=== PATIENT | female | born 1955 | race Caucasian/White ===

== ENCOUNTER → 2017-12-20 08:26 | Outpatient (CLI) | payer OTHER, SELFPAY ==
--- NOTE | 2017-12-20 08:27 | BI_ITS ---
MAMMOGRAPHY - BILATERAL SCREENING REASON FOR EXAM: Female, 62 years old. Routine annual screening examination. PERTINENT HISTORY: Mother with breast cancer. TECHNIQUE: Digital bilateral breast valarie (3D mammographic acquisition) in the CC and MLO projections. 2-D mediolateral oblique (MLO) and craniocaudad (CC) views of both breasts were obtained. CAD: Full Field Digital Mammography with Computer Added Detection was performed. COMPARISON: Comparison is made with prior study dated November 15, 2016 and August 20, 2014. FINDINGS: Breast Composition: There are scattered areas of fibroglandular density. There are no dominant masses or suspicious calcifications. No other significant abnormalities are identified. There has been no significant change since the prior study. BI/SCREENING MAMM (CAD), BILAT IMPRESSION: Stable bilateral screening mammogram. Yearly follow-up mammogram recommended. (A) ASSESSMENT CATEGORY: BIRADS Category 1: Negative. A letter regarding these results will be sent to the patient by the facility within 30 days. Approximately 10% of breast cancers are not detected by mammography. A normal mammogram should not delay biopsy of a clinically suspicious abnormality. [id number] Electronically Signed: Ruiz Bronson MD at 9:56 EDT Tel [phone], Service support ,
== END ==
PROVIDERS: Family Provider Family Medicine; PCP Family Medicine; Visit Provider Family Medicine
DX: Z12.31 Encounter for screening mammogram for malignant neoplasm of breast (principal); Z80.3 Family history of malignant neoplasm of breast
CPT/HCPCS: 77063; 77067

== ENCOUNTER → 2018-08-23 16:08 | Outpatient (CLI) | payer OTHER, SELFPAY ==
--- OUTSIDE RECORDS SUMMARY | 2018-10-09 13:46 | XMS RPT_ITS ---
:1955 Author Organization [facility] Care Team Providers Name Role Phone Irene Vergara Attending Unavailable Malys, Irene Primary Care Unavailable Malys, Irene Attending Unavailable Malys, Irene Primary Care Unavailable Carmelo Wan Attending Unavailable Malys, Irene Referring Unavailable Malys, Irene Primary Care Unavailable PROBLEMS PROBLEMS DATE TYPE CONDITION / CODE ATTENDING STATUS SOURCE 08/23/2018 Unknown R30.0 - Dysuria / MalIrene silveira Active [place] R30.0(ICD-10) [facility] Repository 05/11/2018 Unknown I35.0 - RoofCarmelo Active [place] [facility] aortic (valve) Hospital stenosis / Repository I35.0(ICD-10) 12/20/2017 Unknown Z12.31 - Encounter HimaraoulIrene Active [place] for screening [facility] mammogram for Hospital malignant neoplasm Repository of breast / Z12.31(ICD-10) PROCEDURES PROCEDURES No Procedure Records FoundRESULTS RESULTS Observed: 08/23/2018 Status: F Source: [place] CULTURE, URINE 4:09 PM [facility] Urine Culture ORGANISM 1: Mixed Gram Pos AND Gram Neg Org [place] Count 25,000-50,000 MIX CULTURE Mixed contaminants. Submit a new specimen if indicated. Performed By: #### [id number] #### [place] [facility] [place], [address] CARDIOLOGY VISIT Observed: 05/24/2018 Status: F Source: [place] REPORT 10:35 AM [facility] [place] [facility] [address] [place] [address] OFFICE VISIT Date of Service: 05/11/18 MR#: [id number] Acct: [id number] Name: EBONI IRWIN Rep #: [id number] : 1955 Provider: KARTHIK Wan Age/Sex: 62/F Location: [facility] Status: Signed HPI HPI Details: EBONI IRWIN, is a 62 F who presents to the office today for a cardiovascular outpatient follow-up. She has a history of aortic valve disease/bicuspid aortic valve status post aortic valve replacement with a bioprosthetic valve in December 2009, hypertension, and hyperlipidemia. Pt. denies chest, arm, jaw, or neck discomfort. Her exercise tolerance is stable via spinning twice a week and walk daily for one hour. Pt. denies symptoms of CHF, palpitations, lightheadedness, dizziness, near syncope, or syncopal episodes. Pt. denies edema or claudication issues. Pt. denies orthopnea, PND, or unexplainable fatigue. Intake Vital Signs05/11/18 Height 5 ft 4 in 05/11/18 Weight: 130 lb 05/11/18 Body Mass Index (BMI) 22.3 05/11/18 Blood Pressure 122/88 05/11/18 Blood Pressure Location Lt brachial Intake Visit Reasons: 1 Y FU Front Desk Associate Required: No Accompanied by: none Is patient in pain?: No Allergies lisinopril Adverse Reaction (Mild, Verified 05/11/18 10:16) Dry Cough Medications Aspirin [Aspirin, Baby] 81 mg PO DAILY@0800 02/18/16 [History Confirmed 05/11/18] losartan 50 mg tablet 50 mg PO DAILY #90 tab 12/25/17 [Rx Confirmed 05/11/18] amoxicillin 500 mg capsule 2 g PO DAILY PRN #4 cap 05/11/18 [Rx Confirmed 05/11/18] PFSH Surgical History H/O aortic valve replacement (Resolved) Family History Father Myocardial infarction Heart disease Brother Heart disease Social History Smoking Status: Never smoker alcohol intake: current alcohol intake frequency: holidays/special occasions only caffeine: Yes Type: coffee ROS Const Const: Negative for fatigue, weakness, body ache, fever(s) or chills ENT ENT: Negative for dizziness Cardio Chest Pain: No Palpitations: No Edema: None Muscle aches with walking: None Resp Respiratory: Negative for SOB with activity, SOB at rest, SOB orthopnea\SOB lying down or paroxysmal nocturnal dyspnea GI GI: Negative nausea, black,tarry stools, bright, red blood in stools or vomiting blood/hematemesis : Negative for hematuria or frequent nighttime urination/ nocturia Musc Musc: Negative for muscle aches/ myalgia Skin Skin: Negative non-healing lesions or rash Neuro Neuro: Negative for weakness, dizziness, lightheadedness, near syncope, syncope or orthostatic symptoms Endo Endo: Negative for fatigue Allergy Allergy/Immunology: Negative for rash Cardiology Exam Const Appearance: cooperative, healthy appearing, comfortable and no acute distress Nutritional Appearance: average body habitus and well nourished Orientation: alert, awake and oriented x3 Head Head: normal to inspection Ears: hearing grossly normal bilaterally Nose: external nose normal Face and Sinus: face symmetric Mouth: oral mucosae normal Eyes General: appearance normal, both eyes and all related structures Eyelids: eyelids normal EOM: EOM intact bilaterally Neck Neck: no JVD and normal visual inspection Carotids: normal carotid upstroke Chest Chest inspection: normal inspection of the chest and normal respiratory effort; negative cough Auscultation: Bilateral: Clear to Auscultation Cardio Rate: regular rate Rhythm: irregular rhythm Heart sounds: S1 normal, S2 normal and murmur; negative rub or gallop Murmur: Grade 2/6, RLSB, radiates to carotids and SILVINO loudest primary aortic area GI GI: normal to inspection Neuro General: alert, awake, oriented x3 and CN's II-XI intact bilaterally Skin Skin: no rashes or lesions noted Extremities Pulses: Normal: Right Posterior Tibial Pulse, Left Posterior Tibial Pulse, Right Radial Pulse, Left Radial Pulse Lower Extremity Edema: None: Bilateral Psych Psychological: normal affect Supplemental Info Echocardiogram from February 2016 showed normal LV size, estimated ejection fraction of 65%, bioprosthetic aortic valve, mild aortic stenosis with a calculated aortic valve area of 1.2 cm , peak gradient of 41 mmHg, and mean aortic valve gradient of 21 mmHg. Assessment AND Plan 1. Bicuspid aortic valve Q23.1 Plan - ASHLEY Gracia Echocardiogram from February 2016 showed ejection fraction 65%, mild aortic stenosis with a calculated aortic valve area 1.2 cm , peak aortic valve gradient of 41 mmHg, and mean aortic valve gradient of 21 mmHg. She will continue current medications and we will continue to monitor. On exam her radial pulse felt irregular. She underwent EKG that showed sinus rhythm with variable rates. 2. History of aortic valve replacement Z95.2 S/P bioprosthetic aortic valve replacement in December 2009; Plan - ASHLEY Garcia She will continue current treatment plan as outlined above. 3. Essential hypertension I10 Plan - ASHLEY Garcia Her systolic blood pressure has been well-controlled at home. Her diastolic blood pressure tends to fluctuate between 80s and 90s. At this time we will continue to monitor. She was instructed to contact our office if blood pressure is consistently elevated. If her diastolic remains elevated we can consider low-dose hydrochlorothiazide. Plan Detail Other Orders Orders: Other Medications New: Additional Comments - ASHLEY Garcia Discussed the above patient with Dr. Jackson, he agrees with the plan of care. Thank you for allowing us to participate in the patients plan of care, if you have any questions please do not hesitate to call. This note was generated using a voice recognition system and there may be incorrect words, spelling or punctuation that were not noted when reviewing the office note prior to saving. Follow Up 12 Months (SENIOR PROJECT LEADER/TEAM LEAD) Coding Level of Care Code Off vis,est,level 3 Diagnoses Bicuspid aortic valve Q23.1 History of aortic valve replacement Z95.2 Essential hypertension I10 Hypertension type: essential hypertension Coding Level of Care Code Off vis,est,level 3 Diagnoses Bicuspid aortic valve Q23.1 History of aortic valve replacement Z95.2 Essential hypertension I10 Hypertension type: essential hypertension 05/11/18 1202 <Electronically signed by Carmelo RAMIREZ> Date Carmelo RAMIREZ 05/24/18 1035<Electronically signed by Bryon Jackson MD> Cosigner Signature: Date (if applicable) Bryon Jackson MD CC: Irene Vergara DO 12 LEAD EKG PERFORMED Observed: 05/11/2018 Status: F Source: [place] BY BMS 10:31 AM [facility] [address] [place] [address] 12 Lead EKG performed by [facility] 05/11/180 MR#: [id number] Acct: [id number] Name: EBONI IRWIN Rep #: [id number] : 1955 62 From: Carmelo Wan LEGAL JOB TITLES-C Attending Dr: Carmelo Wan NP Status: DEP AMB Ordering Dr: Carmelo Wan LEGAL JOB TITLES-C Date: 05/11/18 Location: [facility] Sex: F C Admitted: BMS/12 Lead EKG performed by [facility] ECG Report Interpretation Sinus Rhythm -With rate variation cv = 14.WITHIN NORMAL LIMITSElectronically signed on 10/02/2018 at 16:22 by Bryon Jackson Software Version 8610 10/02/18 1625 Date Carmelo Wan LEGAL JOB TITLES-C CC: Irene Vergara DO Date Dictated: 05/11/181029 Date Transcribed: 05/11/181029 Gum Rolling Machine Tender: OLINDA Signed SCREENING MAMM (CAD), Observed: 12/20/2017 Status: F Source: [place] BILAT 8:27 AM [facility] Imaging Services [address] [place] [address] SCREENING MAMM (CAD), BILAT MR#: [id number] Acct: [id number] Name: EBONI IRWIN Rep #: [id number] : 1955 F 62 From: Ruiz Bronson MD PCP: Malys DO,Irene Status: REG CLI Study: SCREENING MAMM (CAD), BILAT Date of Exam: 12/20/17 Exam# [id number] Ordering Dr: Irene Vergara DO MAMMOGRAPHY - BILATERAL SCREENING REASON FOR EXAM: Female, 62 years old. Routine annual screening examination. PERTINENT HISTORY: Mother with breast cancer. TECHNIQUE: Digital bilateral breast valarie (3D mammographic acquisition) in the CC and MLO projections. 2-D mediolateral oblique (MLO) and craniocaudad (CC) views of both breasts were obtained. CAD: Full Field Digital Mammography with Computer Added Detection was performed. COMPARISON: Comparison is made with prior study dated November 15, 2016 and August 20, 2014. FINDINGS: Breast Composition: There are scattered areas of fibroglandular density. There are no dominant masses or suspicious calcifications. No other significant abnormalities are identified. There has been no significant change since the prior study. BI/SCREENING MAMM (CAD), BILAT IMPRESSION: Stable bilateral screening mammogram. Yearly follow-up mammogram recommended. (A) ASSESSMENT CATEGORY: BIRADS Category 1: Negative. A letter regarding these results will be sent to the patient by the facility within 30 days. Approximately 10% of breast cancers are not detected by mammography. A normal mammogram should not delay biopsy of a clinically suspicious abnormality. [id number] Electronically Signed: Ruiz Bronson MD at 9:56 EDT Tel [phone], Service support , CC: Irene Vergara DO Gum Rolling Machine Tender: Signed ALLERGIES ALLERGIES DATE TYPE / CODE NAME / CODE REACTION SEVERITY SOURCE 05/11/2018 Drug lisinopril/F0 DRY COUGH [facility] [place] [facility] All[facility]/4160 [id number]([facility] 30593(SNOMED ) Repository CT) 09/05/2017 Drug No Known Unknown [place] [facility] Allergy/4160 Allergies/F00 Hospital [address]290(SNOMED [id number](RXNOR Repository CT) M) ENCOUNTERS ENCOUNTERS ADMIT/DISCHARGE ACCOUNT ADMITTING ENCOUNTER LOCATION SOURCE NUMBER CLASS 08/23/2018 [id number] Ambulatory [place] 7 [facility] ing:BFHLAB Repository 05/11/2018/ [id number] Ambulatory BMSBuilding:B [place] 8 2 [facility] Repository 12/20/2017 [id number] Ambulatory [place] 2 [facility] ing:OPBI Repository PAYERS PAYERS ENCOUNTER GUARANTOR PAYER SUBSCRIBER SOURCE 08/23/2018 EBONI Ny Primary YUVAL [place] [id number] FRIAR Insurance:MEDICAL ROGERSDOB: [id number] [address]Zqy: Number: Repository [id number] (HP) Date:[id number] [place] [id number]: 08/23/2018 Secondary NOT GIVENUNK [place] Insurance:SELF PAY [facility] Number: Effective Repository Date:2018-08-23 05/11/2018 EBONI Yanely Primary YUVAL [place] [id number] FRIAR Insurance:MEDICAL ROGERSDOB: [facility] [id number] [place] [address]Aho: Number: Repository [id number] (HP) Date:[id number] [id number]: 05/11/2018 Secondary NOT GIVENUNK [place] Insurance:SELF PAY [facility] Number: Effective Repository Date:2018-05-11 12/20/2017 Eboni G Primary YUVAL [place] [id number] [place] Insurance:MEDICAL ROGERSDOB: [facility] [id number] [address]Jvr: Number: Repository [id number] (HP) Date:[id number] [address] [address]YK: 12/20/2017 Secondary NOT GIVENUNK [place] Insurance:SELF PAY [facility] Number: Effective Repository Date:2017-11-23
== END ==
PROVIDERS: Family Provider Family Medicine; PCP Family Medicine; Visit Provider Family Medicine
DX: R30.0 Dysuria (principal)
CPT/HCPCS: 87086; 87088

== ENCOUNTER → 2019-04-19 09:51 | Outpatient (CLI) | payer OTHER, SELFPAY ==
--- NOTE | 2019-04-19 10:01 | BI_ITS ---
MAMMOGRAPHY - BILATERAL SCREENING REASON FOR EXAM: Female, 63 years old. Routine annual screening examination. PERTINENT HISTORY: Mother with breast cancer. TECHNIQUE: Digital bilateral breast moni (3D mammographic acquisition) in the CC and MLO projections. 2-D mediolateral oblique (MLO) and craniocaudad (CC) views of both breasts were obtained. CAD: Full Field Digital Mammography with Computer Added Detection was performed. COMPARISON: Comparison is made with prior study dated December 20, 2017 and November 15, 2016. FINDINGS: Breast Composition: There are scattered areas of fibroglandular density. There are no dominant masses or suspicious calcifications. No other significant abnormalities are identified. There has been no significant change since the prior study. BI/SCREEN MAMM (CAD) W/MONI BILAT IMPRESSION: Stable bilateral screening mammogram. Yearly follow-up mammogram recommended. (A) ASSESSMENT CATEGORY: BIRADS Category 1: Negative. A letter regarding these results will be sent to the patient by the facility within 30 days. Approximately 10% of breast cancers are not detected by mammography. A normal mammogram should not delay biopsy of a clinically suspicious abnormality. [id number] Electronically Signed: Ruiz Bronson, at 10:48 EDT , Service support ,
== END ==
PROVIDERS: Family Provider Family Medicine; PCP Family Medicine; Referring Provider Family Medicine; Visit Provider Family Medicine
DX: Z12.31 Encounter for screening mammogram for malignant neoplasm of breast (principal)
CPT/HCPCS: 77063; 77067

== ENCOUNTER → 2019-05-08 12:36 | Outpatient (CLI) | payer OTHER, SELFPAY ==
[2019-05-02 09:37] VITALS: BMI 23.5
--- NOTE | 2019-05-08 12:38 | ECHOD_ITS ---
Reason For Study: Aortic valve replacment Procedure This was a 2D Doppler, Color Flow transthoracic echocardiogram. Exam performed in department. Left Ventricle Normal left ventricle. Left ventricular systolic function is normal. The estimated ejection fraction is 70 %. Stage 1 diastolic dysfunction. No regional wall motion abnormalities noted. Right Ventricle Normal RV size. Normal systolic function. Atria Normal left atrium. Normal right atrium. Mitral Valve Normal mitral valve. Tricuspid Valve Normal tricuspid valve. Mild tricuspid valve insufficiency. Pulmonary artery systolic pressure is 25 mmHg. Aortic Valve Peak aortic valve gradient 33 mmHg. Mean aortic valve gradient 19 mmHg. Calculated aortic valve area (continuity equation) is 1.4 cm2. Bioprosthetic aortic valve. Pulmonic Valve Normal pulmonic valve. Great Vessels Normal aortic root. The pulmonary artery is normal size. Normal inferior vena cava. Pericardium/Pleural No pericardial effusion. MMode/2D Measurements & Calculations LVIDd: 3.7 cm IVSd: 1.1 cm LVOT diam: 2.0 cm LVIDs: 2.0 cm LVPWd: 1.0 cm LVOT area: 3.0 cm2 RVDd: 2.8 cm FS: 46.5 % Ao root diam: 3.5 cm LAV(MOD-bp): 41.0 ml EDV(MOD-sp4): 72.3 ml LAV(MOD-bp) Indexed: 24.6 ml/m2 ESV(MOD-sp4): 18.4 ml LAV(MOD-sp2): 42.0 ml EF(MOD-sp4): 74.5 % LAV(MOD-sp4): 34.3 ml EDV(MOD-sp2): 62.7 ml SV(MOD-sp4): 53.8 ml SV(MOD-sp2): 47.6 ml EF(MOD-sp2): 75.9 % LA A4 area: 14.7 cm2 LA dimension(2D): 3.2 cm RA A4 area: 12.0 cm2 Doppler Measurements & Calculations MV E max mukesh: 76.7 cm/sec Lat Peak E' Mukesh: 12.2 cm/sec Med Peak E' Mukesh: 7.9 cm/sec MV A max mukesh: 93.4 cm/sec E/E' lat: 6.3 E/E' med: 9.7 MV E/A: 0.82 Ao V2 max: 290.1 cm/sec LV V1 max: 135.4 cm/sec SV(LVOT): 94.6 ml Ao max P.7 mmHg LV V1 max P.4 mmHg Ao V2 mean: 208.0 cm/sec LV V1 mean P.1 mmHg Ao mean P.0 mmHg LV V1 mean: 95.7 cm/sec Ao V2 VTI: 61.8 cm LV V1 VTI: 31.1 cm TRESSA(I,D): 1.5 cm2 TRESSA(V,D): 1.4 cm2 PA V2 max: 111.4 cm/sec TR max mukesh: 231.0 cm/sec TR max P.4 mmHg Interpretation Summary Normal left ventricle. Left ventricular systolic function is normal. The estimated ejection fraction is 70 %. Stage 1 diastolic dysfunction. Bioprosthetic aortic valve. Mean aortic valve gradient 19 mmHg. Calculated aortic valve area (continuity equation) is 1.4 cm2. Compared to prior study, there is no significant change. Ordering Physician: Bryon Jackson Referring Physician: Irene Vergara Performed By: Yadi Jalloh RDCS
== END ==
PROVIDERS: Family Provider Family Medicine; PCP Family Medicine; Referring Provider Internal Medicine Cardiovascular Disease; Visit Provider Internal Medicine Cardiovascular Disease
DX: Z95.2 Presence of prosthetic heart valve (principal)
CPT/HCPCS: 93306

== ENCOUNTER 2019-07-27 21:45 | Observation (INO) | payer OTHER, SELFPAY ==
[2019-05-02 09:37] VITALS: BMI 23.5
[2019-07-27 21:46] VITALS: BP 183/90; PULSE 90; RESP 17; TEMP 36.8; O2SAT 99; BMI 23.6
--- NOTE | 2019-07-27 21:56 | RAD_ITS ---
STUDY: X-RAY CHEST REASON FOR EXAM: Female, 63 years old. Chest pain. TECHNIQUE: Single frontal view of the chest. COMPARISON: February 18, 2016 FINDINGS: There is no new focal consolidation. Sternal cerclage wires are present from a prior sternotomy. There is a prosthetic valve in place. The cardiac silhouette is within normal limits. Normal mediastinum and alec. Normal visualized pulmonary arteries. Normal visualized aortic arch and descending thoracic aorta. Normal visualized thoracic spine. Normal visualized ribs, clavicles, and shoulders. There is no demonstrated abnormality of the visualized soft tissue structures of the upper abdomen. RAD/Chest 1 View (Portable) IMPRESSION: No acute cardiopulmonary process. Electronically Signed: Lexie Ulloa MD at 22:29 EST Tel , Service support ,
--- NOTE | 2019-07-27 21:56 | EKG12_ITS ---
Test Reason : CP Blood Pressure : / mmHG Vent. Rate : 089 BPM Atrial Rate : 089 BPM P-R Int : 170 ms QRS Dur : 090 ms QT Int : 370 ms P-R-T Axes : 051 039 047 degrees QTc Int : 450 ms Normal sinus rhythm with sinus arrhythmia ST & T wave abnormality, consider lateral ischemia Abnormal ECG Confirmed by TORSTEN CLARK, JADE ([id number]), pictures editor ANDIE BRYAN ([id number]) on 07/30/2019 11:35:39 AM Referred By: BB Confirmed By:JADE SARMIENTO MD
[2019-07-27 22:07] LABS: Absolute Lymphocyte Count 2.46 X10^3/uL (0.83-4.51); Absolute Neutrophil Count 4.3 X10^3/uL (2.0-7.7); Basophil# 0.03 X10^3/uL; Basophil% 0.4 % (0-1); Eosinophil# 0.11 X10^3/uL; Eosinophils% 1.5 % (0-5); Hematocrit 43.1 % (37-47); Hemoglobin 14.4 g/dL (12.0-15.0); Lymphocyte # 2.46 X10^3/ul (4.0); Lymphocyte % 32.8 % (19-41); Mean Corp Hgb Conc 33.4 g/dL (32-36); Mean Corpuscular Hgb 29.7 pg (27.0-32.0); Mean Corpuscular Volume 88.9 fL (81-99); Mean Platelet Vol. 9.5 fl (6.2-12.0); Monocyte# 0.62 X10^3/uL; Monocyte% 8.3 % (0-10); NRBC Flagged by Analyzer 0 % (0-5); Neutrophil # 4.26 X10^3/uL (2.7-7.7); Neutrophil % 56.9 % (47-70); POSITIVE MORPHOLOGY YES; Platelet Count 236 K/mm3 (150-450); RBC Distribution Width CV 12.1 % (11.6-14.6); RBC Distribution Width SD 39.8 fl (35.1-43.9); Red Blood Count 4.85 M/mm3 (4.2-5.4); White Blood Count 7.5 K/mm3 (4.4-11.0)
[2019-07-27 22:18] VITALS: O2SAT 99
[2019-07-27] MEDS: Aspirin 81 MG TAB.CHEW 324 MG PO (22:20)
[2019-07-27 22:22] LABS: Anion Gap 7 (5-15); BUN 18 mg/dL (7-18); BUN/Creat Ratio 18.1 RATIO (10-20); Calcium,Total 9.5 mg/dL (8.5-10.1); Chloride 109 mmol/L (98-107); EST Glomerular Filtration Rate 60 mL/min (>60); Est Glom Filt Rate - Afr Amer 72 mL/min (>60); Estimated Creatinine Clearance 50.37 ml/min; Glucose 102 mg/dL (74-106); Potassium 3.4 mmol/L (3.5-5.1); Sodium Level 141 mmol/L (136-145)
[2019-07-27 22:47] LABS: Differential Indicated SCAN CRITERIA MET
[2019-07-27 22:48] LABS: Platelet Estimate ADEQUATE (ADEQ); Red Cell Morphology NORM C+C NORMAL (NORM C&C)
--- NOTE | 2019-07-27 23:03 | ED.VISSUMM ---
- ER Visit Summary Date of Service: 07/27/19 Chief Complaint: Chest pain History of Present Illness: The patient is a 63 F with chest pain started about 25 minutes prior to arrival. The patient has been having this pain on and off for months. She attributed it to indigestion. Symptoms are worse when she exerts herself. Today it was worse when she was carrying a heavy object. She denies any other associated symptoms. She has a history of a bioprosthetic aortic valve replacement remotely as well as hypertension. She is a non-smoker. Denies any history of coronary disease, venous thromboembolism, or aortic disease. Physical Examination: Initial blood pressure was 83/90. Otherwise vitals normal. Afebrile. Alert and oriented. No acute distress. Heart regular rate and rhythm. Lungs clear. Skin normal. Extremities nontender with no edema. Pulses strong and equal. Test Results: EKG showed sinus rhythm at a rate of 89. She has nonspecific ST and T wave changes which would could be consistent with ischemia. They are different from her prior EKG and 2016. Troponin was normal. Labs otherwise unremarkable. X-ray normal. Emergency Department Course and Treatment: Patient treated with aspirin and placed on the monitor. EKG was abnormal as above but nonspecific. Her pain on arrival was 1 out of 10. On reevaluation, pain resolved. Blood pressure is 136/85. Patient has a heart score of 4. Hospitalist was contacted for admission. Treatment Plan: As above Disposition: PCU obs Impression: 1. Chest pain This note was generated with [employer] dictation software. It may contain incorrect words, spelling, and punctuation that were not noted in review of the chart prior to signing ED Disposition - Plan for ED Patient: Referrals: Irene Vergara DO [Primary Care Provider] -
--- NOTE | 2019-07-27 23:19 | HP.PCM_ITS ---
Problem List (1) Chest pain Status: Acute Qualifiers: Ischemic chest pain type: stable angina pectoris History of Present Illness Date of Admission: 07/27/19 Chief Complaint: chest pain The patient is a 63 year old F resents with chest pain. Over the past several months, patient has been having chest pain pressure with exertion, such as when she is working out, chest pain is midsternal goes to her back and then resolves after she belches. Patient had an event tonight and then was much more intense and so she sought evaluation. Work-up in the emergency room showed negative troponins but EKG showed some ST depressions in the lateral leads which were not present previously. Patient has never had chest pain like this before. She denies any other associated symptoms, such as diaphoresis, nausea, abdominal pain. [] Past Medical History Past Medical History (Chronic Problems): Chronic Problems (Last Reviewed 05/02/19 @ 10:37 by Bryon Jackson MD) Essential (primary) hypertension (Chronic) Atherosclerosis of coronary artery of [place] heart without angina pectoris (Chronic) Non-rheumatic aortic stenosis (Chronic) Medical History: Medical History (Last Reviewed 07/27/19 @ 23:21 by Krishna Cody DO) Essential (primary) hypertension (Chronic) I10 Atherosclerosis of coronary artery of [place] heart without angina pectoris (Chronic) I25.10 Non-rheumatic aortic stenosis (Chronic) I35.0 Bicuspid aortic valve Q23.1 Allergies lisinopril Adverse Reaction (Mild, Verified 07/27/19 21:48) Dry Cough Home Medications: Ambulatory Orders Medication Instructions Recorded Aspirin [Aspirin, Baby] 81 mg PO DAILY@0800 02/18/16 losartan 100 mg tablet 100 mg PO DAILY #90 tab 05/02/19 Omeprazole 20 mg PO DAILY 07/27/19 Surgical History: Surgical History (Last Reviewed 07/27/19 @ 23:21 by Krishna Cody DO) History of aortic valve replacement (Resolved) Onset Date: 12/2009 Z95.2 21 mm Omero Gilmore bioprosthetic aortic valve replacement in December 2009 History of Z98.891 History of left heart catheterization Onset Date: 11/20/09 Z98.890 Lung nodule R91.1 removal nodule RLL Smoking Status: Never smoker - *Family History Paternal Family History: Family History (Last Reviewed 07/27/19 @ 23:21 by Krishna Cody DO) Father Myocardial infarction Heart disease Brother Heart disease Review of Systems Constitutional: Denies: Anorexia, Chills, Fever Eyes: Denies: Blurred vision, Double vision HEENT: Denies: Head Aches, Sinus Congestion, Sinus Drainage Cardiovascular: Reports: Chest Pain. Denies: Edema Respiratory: Denies: Cough, Shortness of breath at rest, Sputum production Gastrointestinal: Reports: - - Belching with the chest pain. Denies: Abdominal Pain, Nausea, Vomiting Genitourinary: Denies: Dysuria Musculoskeletal: Denies: Joint Pain, Joint Tenderness Skin: Denies: Rash, Wounds Neurological: Denies: Numbness, Tingling, Focal weakness Psychiatric: Denies: Anxiety, Depression Hematologic/ Lymphatic: Denies: Easy Bruising, Easy Bleeding, Hx of blood clot Comment: All review systems are otherwise negative except for as mentioned above and in the HPI. VTE Information - Inpt Only VTE Present on Admission: No VTE Mechan Device Prophylaxis: None VTE Pharm Prophylaxis ordered?: No Patient Problems: Active and Suspected Problems (Last Reviewed 05/02/19 @ 10:37 by Bryon Jackson MD) Chest pain (Acute) - Physical Exam Vitals/I&O's: Vital Signs Temp Pulse Resp BP Pulse Ox 36.8 C 90 17 183/90 H 99 07/27/19 21:46 07/27/19 21:46 07/27/19 21:46 07/27/19 21:46 07/27/19 22:18 Oxygen Flow Rate (L/min) 2 Oxygen Delivery Method Nasal Cannula Weight: 62.5 kg Body Mass Index (BMI) 23.6 General: Alert, No apparent distress HEENT: Atraumatic, Normocephalic Oral: Moist Mucosa, No Gingival or Mucosal Lesions/ Ulcerations Neck: No Nodes, Trachea Midline Lungs: Clear to auscultation, Normal air movement, No rhonchi, No wheeze, No rales Cardiovascular: Regular rate, Regular Rhythm, - - Aortic valve click Abdomen: Bowel Sounds Present, Soft, Non Tender, Non-Distended Extremities: No edema, No Calf Tenderness Skin: No rashes, No breakdown Musculoskeletal: No Tenderness to Palpation of Joints or Extremities, No Muscle Wasting Neurological: Sensory exam intact to light touch and pain, - - no clonus Psych/Mental Status: Normal Affect, Appropriate Laboratory Results 07/27/19 21:50: WBC 7.5, RBC 4.85, Hgb 14.4, Hct 43.1, MCV 88.9, MCH 29.7, MCHC 33.4, RDW Std Deviation 39.8, RDW Coeff of José Miguel 12.1, Plt Count 236, MPV 9.5, Immature Gran % (Auto) 0.100, Neut % (Auto) 56.9, Lymph % (Auto) 32.8, Falls % (Auto) 8.3, Eos % (Auto) 1.5, Baso % (Auto) 0.4, Absolute Neuts (auto) 4.3, Absolute Lymphs (auto) 2.46, Nucleated RBC % 0, Platelet Estimate ADEQUATE, RBC Morphology NORM C+C 07/27/19 21:50: Sodium 141, Potassium 3.4 L, Chloride 109 H, Carbon Dioxide 25.0, Anion Gap 7, BUN 18, Creatinine 1.00, Estim Creat Clear Calc 50.37, Est GFR (MDRD) Af Amer 72, Est GFR (MDRD) Non-Af 60, BUN/Creatinine Ratio 18.1, Gl ucose 102, Calcium 9.5, Troponin I < 0.015 EKG reviewed and showed normal sinus rhythm with ST depressions in the lateral leads which were not present previously. Echocardiogram from May 08 of this year, showed ejection fraction of 70% Assessment/Plan All Active Problems (Last Reviewed 05/02/19 @ 10:37 by Bryon Jackson MD) Chest pain (Acute) History of aortic valve replacement (Resolved 12/2009) Screen for colon cancer (Resolved) 1. Chest pain * Symptoms concerning for stable angina * Shana score of 90 and CARLOS score of 3 * Patient already on aspirin and will continue * Cycle troponins * Informed patient that a stress test would not be able to be performed until the . Claimed the patient that this could be done as outpatient but it would require her seeing her primary care provider and getting a stress test ordered and when the stress test could be performed could be up to a week or 2. * Patient is choosing to stay in the hospital * Will order a treadmill stress echocardiogram * Consult cardiology if troponins become significantly elevated or if condition deteriorates from a cardiac standpoint 2. Hypertension * Accelerated currently * Continue with losartan and monitor 3. VTE prophylaxis: Low risk as patient is observation status and ambulatory. Code Visit OBSV E&M: 15783 Initial observation care L3
--- NOTE | 2019-07-27 23:44 | EKG12_ITS ---
Test Reason : CP ADMISSION Blood Pressure : / mmHG Vent. Rate : 064 BPM Atrial Rate : 064 BPM P-R Int : 202 ms QRS Dur : 086 ms QT Int : 400 ms P-R-T Axes : 025 040 030 degrees QTc Int : 412 ms Normal sinus rhythm with sinus arrhythmia Normal ECG When compared with ECG of 18-FEB-2016 14:25, No significant change was found Confirmed by PHYLLIS RICH ([id number]), editor trade journal SCOTT BURROWS ([id number]) on 08/06/2019 10:15:17 AM Referred By: GUILLE Confirmed By:PHYLLIS RICH
[2019-07-27 23:46] VITALS: BMI 23.3; BMI 23.4
[2019-07-27 23:50] VITALS: BP 165/88; PULSE 71; RESP 16; TEMP 36.8; O2SAT 95
[2019-07-28] VITALS (11 sets, daily range): BP systolic 140–166; BP diastolic 85–93; PULSE 54–76; RESP 16–18; TEMP 36.7–37.3; O2SAT 97–98
[2019-07-28] MEDS: MELATONIN 3 MG TABLET PO (00:26)
[2019-07-28 05:18] LABS: Cholesterol 214 mg/dL (200); High Density Lipoprotein 56 mg/dL; Triglycerides 76 mg/dL; Very Low Density Lipoprotein 15 mg/dL (5-40)
--- NOTE | 2019-07-28 05:55 | STE_ITS ---
Reason For Study: Chest Pain Stress Results Protocol: Jas Protocol Maximum Predicted HR: 158 bpm Target HR: 134 bpm % Maximum Predicted HR: 82 % DurationHeart Rate Stage (mm:ss) (bpm) BP Comment Baseline 71 134/72No Chest Pain Jas Protocol Stage I 3:00 111 118/74No Chest Pain Jas Protocol Stage II 3:00 120 126/72Mild Chest Tightness Jas Protocol Stage III 3:00 125 138/70Mild Chest Tightness Jas Protocol Stage IV 1:40 130 / Mild Chest Tightness Recovery 90 122/78No Chest Pain Stress Duration: 10:40 mm:ss Maximum Stress HR: 130 bpm METS: 13 Baseline Echocardiogram Findings Stress Echo Wall motion Data Resting WM Intermediate WM Stress WM Interpretation Summary Exercise stress echo. 63-year-old lady with a history of aortic valve replacement and chest pain. Stress protocol: Resting EKG demonstrates normal sinus rhythm with a rate of 73 bpm normal intervals are noted resting blood pressures 134/72 mmHg. The patient exercised according to regular Jas protocol for total duration of 10 minutes and 40 seconds. Patient completed 1 minute and 40 seconds to stage IV of the Jas protocol the maximum heart rate attained 131 bpm which was 82% of maximum predicted heart rate the maximum workload was 13.4 metabolic equivalents. Patient maintained sinus rhythm throughout the recording. At rest there were no ST or T wave changes noted suggest ischemia at peak exercise there was approximately 1.1 to 1.[address] depression noted in leads II, III and aVF and V5 and V6. Patient experienced mild chest tightness and stage II and stage III and IV of the protocol. During recovery chest pain dissipated. The resting blood pressure 134/72 with a peak blood pressure of 138/70 mmHg. It was terminated due to attainment of target heart rate Stress echocardiographic images. Resting echocardiogram demonstrated overall preserved left ventricular systolic function with no obvious wall motion abnormalities noted. During stress echocardiogram there was definite hypokinesis noted of the mid anterior septal wall, mid anterior wall, suggestive of stress-induced ischemia. The ejection fraction was 55% at rest and at peak was mildly increased at 58%. Conclusion: Exercise stress echo with evidence of anterior wall ischemia noted. Ordering Physician: Krishna Cody Referring Physician: Bryon Jackson Performed By: Lexy Mcmullen, RENEE, RVT
[2019-07-28] MEDS: Aspirin 81 MG TAB.CHEW PO (08:38)
[2019-07-28] MEDS: Pantoprazole Sodium 20 MG Tablet PO (08:38)
[2019-07-28] MEDS: Losartan Potassium 100 MG Tablet PO (08:38)
--- NOTE | 2019-07-28 10:47 | PCM.PN.HOSP ---
Patient Problems: Active and Suspected Problems (Last Reviewed 07/27/19 @ 23:21 by Krishna Cody DO) Chest pain (Acute) Subjective: Chest pain resolved, feeling much better. Vitals/I&O's: Vital Signs Temp Pulse Resp BP Pulse Ox 99.1 F 73 18 166/93 H 98 07/28/19 08:32 07/28/19 08:32 07/28/19 08:32 07/28/19 08:32 07/28/19 08:32 Oxygen Flow Rate (L/min) 2 Oxygen Delivery Method Room Air Weight: 136 lb 3.931 oz Body Mass Index (BMI) 23.3 Intake and Output for Last 24 Hours 07/26/19 07/27/19 07/28/19 23:59 23:59 23:59 Intake Total 480 / 480 Balance 480 / 480 General: Alert, Oriented x3, Cooperative, No apparent distress HEENT: Atraumatic, PERRLA, EOMI, Normocephalic Oral: Moist Mucosa Neck: Supple, No JVD Lungs: Clear to auscultation, Normal air movement, No rhonchi, No wheeze, No rales Cardiovascular: Regular rate, Regular Rhythm, Normal S1, Normal S2, Murmur - 2/6 SILVINO chronic Abdomen: Soft, Non Tender, Non-Distended, No Hepato-splenomegaly Extremities: No edema, Capillary Refill Less than 3 Seconds Skin: No rashes, No breakdown Neurological: Neuro grossly intact, Sensory exam intact to light touch and pain Psych/Mental Status: Normal Affect, Appropriate Laboratory Results 07/27/19 21:50: WBC 7.5, RBC 4.85, Hgb 14.4, Hct 43.1, MCV 88.9, MCH 29.7, MCHC 33.4, RDW Std Deviation 39.8, RDW Coeff of José [place] 12.1, Plt Count 236, MPV 9.5, Immature Gran % (Auto) 0.100, Neut % (Auto) 56.9, Lymph % (Auto) 32.8, [place] % (Auto) 8.3, Eos % (Auto) 1.5, Baso % (Auto) 0.4, Absolute Neuts (auto) 4.3, Absolute Lymphs (auto) 2.46, Nucleated RBC % 0, Platelet Estimate ADEQUATE, RBC Morphology NORM C+C 07/27/19 21:50: Sodium 141, Potassium 3.4 L, Chloride 109 H, Carbon Dioxide 25.0, Anion Gap 7, BUN 18, Creatinine 1.00, Estim Creat Clear Calc 50.37, Est GFR (MDRD) Af Amer 72, Est GFR (MDRD) Non-Af 60, BUN/Creatinine Ratio 18.1, Glucose 102, Calcium 9.5, Troponin I < 0.015 07/28/19 00:54: Troponin I < 0.015 07/28/19 03:52: Triglycerides 76, Cholesterol 214 H, LDL Cholesterol 143 H, VLDL Cholesterol 15, HDL Cholesterol 56 07/28/19 03:52: Troponin I < 0.015 Current Medications Acetaminophen (Tylenol) 650 mg PO Q6H PRN PRN PRN Reason: Pain Score 1-10/Temp > 100.7 F Aspirin (Aspirin, Baby) 81 mg PO DAILY@0800 [facility] Last Admin: 07/28/19 08:38 Dose: 81 mg Documented by: Dextrose (D50w Syringe) 0 gm IV X1 PRN; Protocol PRN Reason: Hypoglycemia Glucagon () 1 mg IM .X1 PRN PRN Reason: Hypoglycemia Sodium Chloride () 250 mls @ 15 mls/hr IV .[id number] PRN PRN Reason: Saline Flush Losartan Potassium (Cozaar) 100 mg PO DAILY [facility] Last Admin: 07/28/19 08:38 Dose: 100 mg Documented by: Melatonin (Melatonin) 3 mg PO QHS PRN PRN PRN Reason: INSOMNIA Last Admin: 07/28/19 00:26 Dose: 3 mg Documented by: Nitroglycerin (Nitrostat) 0.4 mg SUBLINGUAL Q5M PRN PRN Reason: CARDIAC/CHEST PAIN Ondansetron HCl (Zofran) 4 mg IV Q8H PRN PRN PRN Reason: NAUSEA/VOMITING Pantoprazole Sodium (Protonix) 20 mg PO DAILY [facility] Last Admin: 07/28/19 08:38 Dose: 20 mg Documented by: Sodium Chloride () 10 - 40 ml IV UD PRN PRN Reason: SALINE FLUSH STROKE Vital Signs/Narrative: Vital Signs Temp Pulse Resp BP Pulse Ox 07/28/19 08:32 99.1 F 73 18 166/93 H 98 07/28/19 08:00 66 Medical Necessity - Tobacco Use Smoking Status: Never smoker Assessment/Plan All Active Problems (Last Reviewed 07/27/19 @ 23:21 by Krishna Cody DO) Chest pain (Acute) History of aortic valve replacement (Resolved 12/2009) Screen for colon cancer (Resolved) 1. Chest pain/HTN -Troponins were negative -EKG was normal -Stress test in the morning -Continue with aspirin -Blood pressures been stable, will continue with losartan 2. GERD -Stable -Continue with PPI DVT: Ambulation Code Visit OBSV E&M: 79102 Subsequent observation care L2
[2019-07-28] MEDS: Atorvastatin Calcium 40 MG Tablet PO (22:07)
[2019-07-29] VITALS (24 sets, daily range): BP systolic 106–165; BP diastolic 54–105; PULSE 57–76; RESP 11–19; TEMP 36.6–36.9; O2SAT 96–99; BMI 23.2
[2019-07-29] MEDS: Losartan Potassium 100 MG Tablet PO (05:32)
[2019-07-29] MEDS: Aspirin 81 MG TAB.CHEW PO (05:32)
[2019-07-29] MEDS: 0.9% Saline Lock 10 ML Syringe IV ×2 (05:34→12:20)
--- NOTE | 2019-07-29 05:55 | EKG12_ITS ---
Test Reason : MORNING EKG Blood Pressure : / mmHG Vent. Rate : 068 BPM Atrial Rate : 068 BPM P-R Int : 172 ms QRS Dur : 096 ms QT Int : 390 ms P-R-T Axes : 057 033 038 degrees QTc Int : 414 ms Normal sinus rhythm with sinus arrhythmia Normal ECG When compared with ECG of 28-JUL-2019 00:19, MANUAL COMPARISON REQUIRED, DATA IS UNCONFIRMED Confirmed by PHYLLIS RICH ([id number]), associate entertainment editor SCOTT BURROWS ([id number]) on 08/06/2019 10:17:22 AM Referred By: JOHN Confirmed By:PHYLLIS RICH
[2019-07-29] MEDS: Pantoprazole Sodium 20 MG Tablet PO (09:37)
--- NOTE | 2019-07-29 10:57 | CASEMGMT ---
CASSIDY met with patient as she is listed as self pay. She said that they are not on many medications and have been doing fine paying for them. She sees Dr Vergara for her PCP. They are active with [facility] health coverage, but they have to pay up front. She said she is doing fine and does not need any resources. Salina SANTOS MSW
--- NOTE | 2019-07-29 11:16 | CON.PCM_ITS ---
Reason for Consult Date of Consultation: 07/29/19 Reason for Consultation: Chest discomfort and abnormal stress test History of Present Illness: The patient is a 63 year old F with a past medical history of hypertension, hyperlipidemia, history of bicuspid aortic valve status post Omero Gilmore bioprosthetic valve replacement in 2009. She had been doing quite well and following with us in the office until the last few months when she says that she is experienced chest discomfort when she exerts herself. There is no radiation there is no dizziness or diaphoresis. This weekend she experienced more episodes of this chest discomfort which appeared to be worse with exertion and dissipating with rest. She presented to the emergency room cardiac enzymes were obtained which were noted to be normal. She was scheduled for and underwent an exercise stress echo where she exercised to 13.4 metabolic equivalents with nonspecific ST changes and anterior hypokinesis and reproduction of the chest discomfort. Cardiology was called for further evaluation and management. [] Past Medical History Allergies/Adverse Reactions: Allergies lisinopril Adverse Reaction (Mild, Verified 07/27/19 21:48) Dry Cough Home Medications: Ambulatory Orders Medication Instructions Recorded Aspirin [Aspirin, Baby] 81 mg PO DAILY@0800 02/18/16 losartan 100 mg tablet 100 mg PO DAILY #90 tab 05/02/19 Omeprazole 20 mg PO DAILY 07/27/19 Past Medical History (Chronic Problems): Chronic Problems (Last Reviewed 07/27/19 @ 23:21 by Krishna Cody DO) Essential (primary) hypertension (Chronic) Atherosclerosis of coronary artery of [place] heart without angina pectoris (Chronic) Non-rheumatic aortic stenosis (Chronic) Surgical History: - - Status post aortic valve replacement Psychiatric History: No pertinent psych hx DECORATING CONSULTANT History: No pertinent DECORATING CONSULTANT history - *Family History Paternal Family History: Family History (Last Reviewed 07/27/19 @ 23:21 by Krishna Cody DO) Father Myocardial infarction Heart disease Brother Heart disease Smoking Status: Never smoker Alcohol: None Drugs: None Review of Systems - Review of Systems General: Denies: Fever, Night Sweats, Fatigue HEENT: Denies: Vision Change Cardiovascular: Reports: Chest Discomfort, Chest Discomfort with Exertion, Chest Pressure. Denies: Shortness of Breath, Orthopnea, PND, Peripheral Edema, Palpitations, Lightheadedness, Dizziness, Near Syncope, Syncope Respiratory: Denies: Cough, Sputum Production, Hemoptysis Gastrointestinal: Denies: Hematemesis, Hematochezia, Melena Genitourinary: Denies: Dysuria, Hematuria Muscoloskeletal: Denies: Myalgias Skin: Denies: Rash Neurological: Denies: Dizziness Psychiatric: Denies: Anxiety Endocrine: Denies: Heat Intolerance Hematologic/ Lymphatic: Denies: Anemia Subjectve: Pleasant lady in no distress at this time Objective: Vital Signs Temp Pulse Resp BP Pulse Ox 98.4 F 65 16 129/86 H 97 07/29/19 05:30 07/29/19 06:51 07/29/19 05:30 07/29/19 05:30 07/29/19 05:30 Oxygen Flow Rate (L/min) 2 Oxygen Delivery Method Room Air Weight: 136 lb 3.931 oz Body Mass Index (BMI) 23.3 Intake and Output for Last 24 Hours 07/27/19 07/28/19 07/29/19 23:59 23:59 23:59 Intake Total 2059 Balance 2059 General: Awake, Alert, Oriented x 3 HEENT: PERRL, EOMI, Sclera Non Icteric Neck: Supple, Good ROM, No Lymph Node Enlargement Lungs: Clear to auscultation Cardiovascular: Regular Rhythm, Normal S1, Normal S2, No Rubs, No Gallops Murmur Murmur: Grade 2/6, Early Systolic, LLSB Vascular: No Carotid Bruits, Normal Femoral Pulses, Normal Radial Pulses, Normal Dorsalis Pedal Pulse, Normal Posterior Tibial Pulses Abdomen: Bowel Sounds Present, Soft, Non Tender, No HSM, No Organomegaly Extremities: No Cyanosis, No Clubbing, No edema Musculoskeletal: No Erythema Skin: No Rashes Lymphatic: No Lymph Node Enlargement Neurological: No Focal Motor or Sensory Deficit Psych/Mental Status: Appropriate Rhythm: EKG: Normal sinus rhythm with no acute changes heart rate of 68 bpm ECHO: Stress Test: See above Assessment/Plan 1. Recent onset angina * Patient presents with chest discomfort suggestive of recent onset angina. Her last cardiac catheterization in 2009 demonstrated no obstructive coronary disease. Stress test performed today demonstrated evidence of anteroseptal ischemia. * Based on the above I would recommend that she undergo a left heart catheterization to assess her coronary anatomy and depending on the findings further recommendations will be made. The above has been discussed with the patient risk benefits alternatives she understands and agrees to proceed. * 2. Hypertension * Her blood pressure is under good control at this time and I would not recommend we make any changes. * 3. Status post aortic valve replacement * The patient has a bioprosthetic aortic valve which appears to be functioning w ell. * My recommendation will be to continue current medical therapy and evaluation. * 4. Hyperlipidemia * Continue aggressive risk factor modification. * * Thank you for allowing me to participate in the care of your patient. Please don't hesitate to call if any issues arise
--- NOTE | 2019-07-29 11:16 | PCM.PN.HOSP ---
Patient Problems: Active and Suspected Problems (Last Reviewed 07/27/19 @ 23:21 by Krishna Cody DO) Chest pain (Acute) Subjective: Patient seen and examined. She was admitted with complaint of chest pain. She is due for stress test today. Review Of systems otherwise negative. Labs and vitals reviewed. Vitals/I&O's: Vital Signs Temp Pulse Resp BP Pulse Ox 98.4 F 65 16 129/86 H 97 07/29/19 05:30 07/29/19 06:51 07/29/19 05:30 07/29/19 05:30 07/29/19 05:30 Oxygen Flow Rate (L/min) 2 Oxygen Delivery Method Room Air Weight: 136 lb 3.931 oz Body Mass Index (BMI) 23.3 Intake and Output for Last 24 Hours 07/27/19 07/28/19 07/29/19 23:59 23:59 23:59 Intake Total 2059 Balance 2059 General: Alert, Oriented x3, Cooperative, No apparent distress HEENT: Atraumatic, PERRLA, EOMI, Normocephalic Oral: Moist Mucosa Neck: Supple, No JVD, Negative Carotid Bruits Lungs: Clear to auscultation, Normal air movement, No rhonchi, No wheeze, No rales Cardiovascular: Regular rate, Regular Rhythm, Normal S1, Normal S2, No murmurs Abdomen: Bowel Sounds Present, Soft, Non Tender, Non-Distended, No Hepato-splenomegaly Extremities: No clubbing, No cyanosis, No edema, Capillary Refill Less than 3 Seconds Skin: No rashes, No breakdown Musculoskeletal: No Tenderness to Palpation of Joints or Extremities Lymphatic: No Cervical, Supraclavicular, or Inguinal Adenopathy Neurological: Cranial nerves II-XII grossly intact, Neuro grossly intact, Motor Exam 5/5 strength throughout Psych/Mental Status: Normal Affect, Appropriate, Alert and oriented to time, place, person, mood and affect Current Medications Acetaminophen (Tylenol) 650 mg PO Q6H PRN PRN PRN Reason: Pain Score 1-10/Temp > 100.7 F Aspirin (Aspirin, Baby) 81 mg PO DAILY@0800 [facility] Last Admin: 07/29/19 05:32 Dose: 81 mg Documented by: Atorvastatin Calcium (Lipitor) 40 mg PO QHS [facility] Last Admin: 07/28/19 22:07 Dose: 40 mg Documented by: Dextrose (D50w Syringe) 0 gm IV X1 PRN; Protocol PRN Reason: Hypoglycemia Glucagon () 1 mg IM .X1 PRN PRN Reason: Hypoglycemia Sodium Chloride () 250 mls @ 15 mls/hr IV .[id number] PRN PRN Reason: Saline Flush Losartan Potassium (Cozaar) 100 mg PO DAILY [facility] Last Admin: 07/29/19 05:32 Dose: 100 mg Documented by: Melatonin (Melatonin) 3 mg PO QHS PRN PRN PRN Reason: INSOMNIA Last Admin: 07/28/19 00:26 Dose: 3 mg Documented by: Nitroglycerin (Nitrostat) 0.4 mg SUBLINGUAL Q5M PRN PRN Reason: CARDIAC/CHEST PAIN Ondansetron HCl (Zofran) 4 mg IV Q8H PRN PRN PRN Reason: NAUSEA/VOMITING Pantoprazole Sodium (Protonix) 20 mg PO DAILY [facility] Last Admin: 07/29/19 09:37 Dose: 20 mg Documented by: Sodium Chloride () 10 - 40 ml IV UD PRN PRN Reason: SALINE FLUSH Last Admin: 07/29/19 05:34 Dose: 10 ml Documented by: Medical Necessity - Tobacco Use Smoking Status: Never smoker Assessment/Plan All Active Problems (Last Reviewed 07/27/19 @ 23:21 by Krishna Cody DO) Chest pain (Acute) History of aortic valve replacement (Resolved 12/2009) Screen for colon cancer (Resolved) 1 chest pain to rule out ACS. Troponins x3 were negative and EKG showed no acute ST changes. Tress echocardiogram done this morning showed evidence of anterior wall ischemia. Cardiology consulted. On p.o. aspirin 81 mg daily. Lipid panel showed total cholesterol of 214 and LDL cholesterol of 143 with HDL of 56. on statin 2. Hypokalemia: Potassium was 3.4. Will replace and monitor. 3. Hypertension: Well controlled. On losartan. 4. Hyperlipidemia: lipid panel as under 1. on statin. 5. GERD: On PPI. DVT prophylaxis: SCDs Code Visit Inpatient E&M: 03537 Subs Hosp L2 OBSV E&M: 83292 Subsequent observation care L2
[2019-07-29] MEDS: 0.9% Normal Saline 1,000 ML 15 ML IV (12:20)
--- NOTE | 2019-07-29 13:49 | CL.D_ITS ---
Patient Name: EBONI IRWIN Study Date: 07/29/2019 Performing: Bryon Jackson MD Ht: 64.17 inches 163 cm : 1955 Wt: 136.69 lbs 62 kg Age: 63 Gender: female BSA: 1.67 PROCEDURE(S) PERFORMED [id number] CLINICAL PROFILE AND INDICATIONS Indications: ACS <= 24 hrs Heart Failure: None Stress/Imaging Stress Echocardiogram: Yes Result: Positive High RiskStress Echocardiogram: Positi ve High Risk CAD Presentations: Unstable angina. CONCLUSIONS Severe disease involving LAD, Diagonal and moderate Lcx and High grade non dominant RCA RECOMMENDATIONS Referred for immediate PCI DESCRIPTION OF PROCEDURE The patient arrived to the procedure lab. The risks and benefits of the procedure as well as a full d escription of our services here and current unavailability of surgical backup were fully explained to the patient and/or their significant other prior to the catheterization. The Timeout was completed, verifying the correct patient and procedure. The patient's procedural site was prepped and draped in the usual fashion. Local anesthetic was given subcutaneously to right radial region with Lidocaine 2% . Using a modified Seldinger technique, arterial access was obtained via the right radial artery, a 6 Fr sheath was inserted. Left Coronary Artery selective angiography was performed in multiple views u sing a 5 Fr. 4.0 [place] catheter. Right Coronary Artery selective angiography was then performed in mu ltiple views using a 5 Fr. 4.0 [place] catheter. CORONARY ANGIOGRAPHY DOMINANCE: Left Dominant LEFT HEART ASSESSMENT Left Ventricular Ejection Fraction: by Echo 55 % Normal LV wall motion Normal Left Ventricular systolic function LEFT MAIN: Angiographically normal LEFT ANTERIOR DESCENDING ARTERY: MID LAD: 80 % Stenosis DIAGONAL 1: Proximal - 70 eccentric % Stenosis CIRCUMFLEX ARTERY: OM 1: Proximal - Moderate luminal irregularities up to 50% RIGHT CORONARY ARTERY: PROX RCA: long 80 COLLATERAL FLOW: Collateral flow from Right to Left COMPLICATIONS PROCEDURE MEDICATIONS Fentanyl 50 mcg IV Versed 1 mg IV Oxygen: 2 L/min via nasal cannula Heparin diluted in 23cc Heparinized saline. Patient given 10cc IA of this solution. 07/29/2019 13:29 :18 Verapamil 2.5mg, Ntg 100mcgs, 2000 units of Heparin diluted in 23cc Heparinized saline. Patient give n 10cc IA of this solution. 07/29/2019 13:29:18 SUMMARY OF HEMODYNAMIC DATA Time AIR REST ECG 13:14:32 AO 114/76 (94) SA 13:31:09 Signed By Bryon Jackson MD On 07/29/2019 1:48:49 PM Bryon Jackson MD
--- NOTE | 2019-07-29 14:30 | EKG12_ITS ---
Test Reason : Blood Pressure : / mmHG Vent. Rate : 062 BPM Atrial Rate : 062 BPM P-R Int : 188 ms QRS Dur : 088 ms QT Int : 408 ms P-R-T Axes : 042 035 032 degrees QTc Int : 414 ms Normal sinus rhythm Normal ECG When compared with ECG of 29-JUL-2019 05:17, MANUAL COMPARISON REQUIRED, DATA IS UNCONFIRMED Confirmed by TORSTEN CLARK, JADE ([id number]), associate entertainment editor ANDIE BRYAN ([id number]) on 08/12/2019 1:53:52 PM Referred By: Confirmed By:JADE SARMIENTO MD
[2019-07-29] MEDS: 0.9% Normal Saline 1,000 ML 100 ML IV (15:00)
--- NOTE | 2019-07-29 15:09 | CRPHASE1 ---
Patient Communication PHII Cardiac Rehab Discussed with Patient:: Yes Guide to Cardiac Rehab Given to Patient:: Yes Cardiac Rehab Facility Choice List Given to Patient:: Yes - [facility] Choice Program [facility] CR PHII:: Communication Given to CR Environmental Services Director:: Qiana Santiago PCP:: Irene Vergara Sessions:: 36 sessions - 3 days/wk, 12 weeks Risk Factors/Lifestyle Smoking Status: Never smoker Hx Hypertension: No Hx Diabetes Mellitus Type 2: No Height: 1.63 m Weight:: 61.8 kg BMI: 23.2 Post-Menopausal: Yes ETOH: No Caffeine: Yes Substance Abuse: No Risk Factor for Sedentary Lifestyle: Lowest Risk Family History: Family History (Last Reviewed 07/27/19 @ 23:21 by Krishna Cody DO) Father Myocardial infarction Heart disease Brother Heart disease Laboratory Values: Cardiac Rehab Phase I Labs Triglycerides 76 mg/dL (-199) 07/28/19 03:52 Cholesterol 214 mg/dL (200) H 07/28/19 03:52 LDL Cholesterol 143 mg/dL (0-130) H 07/28/19 03:52 HDL Cholesterol 56 mg/dL (40-) 07/28/19 03:52 Phase I Education Given On:: [place] Issues Affecting Care:: None Knowledge of Condition:: Yes Learning Preferences: Verbal Hospital Course Pain Description: Tightness Pain Intensity: 5 Cardiac Cath Date:: 07/29/19 Medical/Surgical History [place]:: No Angina:: Yes Discharge/Home/Social Eval Discharge Disposition: Home Marital Status: Cardiac Rehabilitation Info Cardiac Rehabilitation Program Information: Cardiac Rehabilitation is important for patients like you who are recovering from a heart problem. Cardiac rehabilitation programs are recognized as integral to the continued care of the patient with coronary heart disease. The cardiac rehabilitation program is designed to optimize a patient's physical, psychological, and social functioning. Health healthcare administrator work in cardiac rehabilitation programs and assist you with getting the treatments you need to get stronger and healthier - like exercise, healthy eating habits, and medications. Cardiac rehabilitation has been show to help people with heart problems live longer and have better life enjoyment than people who do not go to cardiac rehabilitation. Please contact the Cardiac Rehabilitation Program at [facility] at in two weeks if you have not heard from them.
--- NOTE | 2019-07-29 15:13 | CRPH1.INSTRU ---
General Education CAD and cardiac anatomy and function:: Patient communicates acknowledgment Explanation of diagnoses and procedures:: Patient communicates acknowledgment Sign/Symptoms of DE:: Patient communicates acknowledgment Antiplatelet therapy: Not instructed Proper use of NTG-SL: Not instructed Emergency procedures and activation of EMS: Not instructed Compliance of all prescribed medications: Not instructed Smoking Patient Nicotine/Smoking Risk Factors Are:: Never smoked Dyslipidemia Recommendations Include:: Lipid profile not available Overweight/Obesity Patient Overweight/Obesity Risk Factors Are:: Overweight = 26-29 Overweight/Obesity:: Patient communicates acknowledgment Hypertension Patient Hypertension Risk Factors Are:: No documented hx of HTN Heart Disease Patient Heart Disease Risk Factors Are:: Family history of heart disease < 65 years old Heart Disease Response Code:: Patient communicates acknowledgment Diabetes Patient Diabetes Risk Factors Are:: No documented hx of diabetes Metabolic Syndrome Recommendations Include:: Does not meet criteria Metabolic Syndrome Response Code:: Patient communicates acknowledgment Sedentary Recommendations Include:: Monitored Outpatient Cardiac Rehab Sedentary Response Code:: Patient communicates acknowledgment Stress Patient Stress Risk Factors Are:: Patient denies stress as a risk factor
[2019-07-29 16:49] LABS: Hematocrit 40.1 % (37-47); Hemoglobin 13.4 g/dL (12.0-15.0); Mean Corp Hgb Conc 33.4 g/dL (32-36); Mean Corpuscular Hgb 28.9 pg (27.0-32.0); Mean Corpuscular Volume 86.4 fL (81-99); Mean Platelet Vol. 9.5 fl (6.2-12.0); Platelet Count 215 K/mm3 (150-450); RBC Distribution Width SD 37.9 fl (35.1-43.9); Red Blood Count 4.64 M/mm3 (4.2-5.4); White Blood Count 6.1 K/mm3 (4.4-11.0)
--- NOTE | 2019-07-29 17:15 | NURSING ---
brief vagal episode after pt to chair, HR 48, diaphoretic/pale. resolves in 3 min. pt pink/dry, HR 58.
--- NOTE | 2019-07-29 19:15 | NURSING ---
Per previous shift reporting RN, Integrilin drip turned off at 07/29/19 1630. Infusion completed on NOV as of 1914, per this RN's assessment time. IV intake per NOV for this med will be over-calculated by 27ml.
[2019-07-29] MEDS: Atorvastatin Calcium 40 MG Tablet PO (23:05)
[2019-07-29] MEDS: TICAGRELOR 90 MG TABLET PO (23:05)
[2019-07-30] VITALS (13 sets, daily range): BP systolic 102–155; BP diastolic 52–93; PULSE 59–89; RESP 10–18; TEMP 36.7–36.8; O2SAT 96–97
[2019-07-30 04:19] LABS: Hematocrit 41.4 % (37-47); Hemoglobin 13.9 g/dL (12.0-15.0); Mean Corp Hgb Conc 33.6 g/dL (32-36); Mean Corpuscular Hgb 29.5 pg (27.0-32.0); Mean Corpuscular Volume 87.9 fL (81-99); Mean Platelet Vol. 9.4 fl (6.2-12.0); Platelet Count 202 K/mm3 (150-450); RBC Distribution Width CV 11.8 % (11.6-14.6); RBC Distribution Width SD 38.1 fl (35.1-43.9); Red Blood Count 4.71 M/mm3 (4.2-5.4); White Blood Count 7.1 K/mm3 (4.4-11.0)
[2019-07-30 05:30] LABS: ALB/GLOB Ratio 1.1 RATIO (0.9-2.4); AST(SGOT) 14 U/L (15-37); Alanine Aminotransfer ALT/SGPT 20 U/L (13-56); Albumin, Serum 3.4 g/dL (3.2-5.0); Alkaline Phosphatase 49 U/L (45-117); Anion Gap 8 (5-15); BUN 16 mg/dL (7-18); BUN/Creat Ratio 20.6 RATIO (10-20); Calcium,Total 8.9 mg/dL (8.5-10.1); Chloride 110 mmol/L (98-107); Creatinine, Serum 0.78 mg/dL (0.55-1.02); EST Glomerular Filtration Rate 80 mL/min (>60); Est Glom Filt Rate - Afr Amer 96 mL/min (>60); Estimated Creatinine Clearance 64.58 ml/min; Globulin 3.1 g/dL (2.2-4.2); Glucose 83 mg/dL (74-106); Potassium 3.6 mmol/L (3.5-5.1); Protein, Total 6.5 g/dL (6.4-8.2); Sodium Level 140 mmol/L (136-145)
--- NOTE | 2019-07-30 06:59 | PN.CARD_ITS ---
Subjectve: Patient seen and evaluated. Doing well this morning. She however did not sleep very well. Objective: Vital Signs Temp Pulse Resp BP Pulse Ox 98.1 F 65 11 L 137/77 H 96 07/30/19 04:00 07/30/19 06:00 07/30/19 06:00 07/30/19 06:00 07/30/19 06:00 Oxygen Flow Rate (L/min) 2 Oxygen Delivery Method Room Air Weight: 136 lb 3.931 oz Body Mass Index (BMI) 23.3 Intake and Output for Last 24 Hours 07/28/19 07/29/19 07/30/19 23:59 23:59 23:59 Intake Total 2059 1467.75 / 1467.75 Output Total 0 / 0 Balance 2059 1467.75 / 1467.75 General: Awake, Alert, Oriented x 3 HEENT: PERRL, EOMI, Sclera Non Icteric Neck: Supple, Good ROM, No Lymph Node Enlargement Lungs: Clear to auscultation Cardiovascular: Regular Rhythm, Normal S1, Normal S2, No Murmurs, No Rubs, No Gallops Vascular: No Carotid Bruits, Normal Femoral Pulses, Normal Radial Pulses, Normal Dorsalis Pedal Pulse, Normal Posterior Tibial Pulses Abdomen: Bowel Sounds Present, Soft, Non Tender, No HSM, No Organomegaly Extremities: No Cyanosis, No Clubbing, No edema Musculoskeletal: No Erythema Skin: No Rashes Lymphatic: No Lymph Node Enlargement Neurological: No Focal Motor or Sensory Deficit Psych/Mental Status: Appropriate 07/29/19 16:30: WBC 6.1, RBC 4.64, Hgb 13.4, Hct 40.1, MCV 86.4, MCH 28.9, MCHC 33.4, Plt Count 215, MPV 9.5 07/30/19 04:05: WBC 7.1, RBC 4.71, Hgb 13.9, Hct 41.4, MCV 87.9, MCH 29.5, MCHC 33.6, Plt Count 202, MPV 9.4 07/30/19 04:05: Sodium 140, Potassium 3.6, Chloride 110 H, Carbon Dioxide 22.0, Anion Gap 8, BUN 16, Creatinine 0.78, Est GFR (MDRD) Af Amer 96, Est GFR (MDRD) Non-Af 80, BUN/Creatinine Ratio 20.6 H, Glucose 83, Calcium 8.9, Total Bilirubin 0.90 Rhythm: EKG: ECHO: Stress Test: Cardiac Cath: PCI: CT Surgery: Holter monitor: EPS: PPM: CXR: Chest CT Scan: Medical Necessity - Tobacco Use Smoking Status: Never smoker Assessment/Plan 1. Recent onset angina * Patient presents with chest discomfort suggestive of recent onset angina. * Cardiac catheterization demonstrated severe disease noted in the diagonal branch of the left anterior descending artery, the mid left anterior descending artery, and moderate disease noted in the circumflex artery. The right coronary artery also had severe disease. * The patient underwent angioplasty and stenting of the left anterior descending artery and diagonal vessel and the circumflex artery will be treated medically. * The right coronary artery will be treated with interval angioplasty. * Patient will be discharged for outpatient follow-up and interval angioplasty. Follow-up in my office in 2 to 4 weeks 2. Hypertension * Her blood pressure is under good control at this time and I would not recommend we make any changes. * We will add a beta-papi to her regimen 3. Status post aortic valve replacement * The patient has a bioprosthetic aortic valve which appears to be functioning well. * My recommendation will be to continue current medical therapy and evaluation. * 4. Hyperlipidemia * Continue aggressive risk factor modification. * * Thank you for allowing me to participate in the care of your patient. Please don't hesitate to call if any issues arise
--- NOTE | 2019-07-30 09:34 | PCM.DC ---
- Discharge Diagnoses Current Active Problems: Current Active and Chronic Problems (Last Reviewed 07/27/19 @ 23:21 by Krishna Cody DO) Chest pain (Acute) You will use the following diet at home:: Cardiac Your food should be the consistency of: Regular Your liquids should be the consistency of: Regular/Thin Discharge Activity: Return to Normal Activity Weight Bearing Status: Weight bearing as tolerated Call your doctor if you observe: Fever of 101 or Higher, Shortness of breath, Chest pain Instructions: Angina, Recognizing a Heart Attack or Angina Allergies/Adverse Reactions: Allergies lisinopril Adverse Reaction (Mild, Verified 07/27/19 21:48) Dry Cough Medications to take at Discharge Aspirin [Aspirin, Baby] 81 mg PO DAILY@0800 02/18/16 losartan 100 mg tablet 100 mg PO DAILY #90 tab 05/02/19 Omeprazole 20 mg PO DAILY 07/27/19 Atorvastatin Calcium [Lipitor] 40 mg PO QHS #30 tab 07/30/19 Metoprolol(XL)Succ [Toprol Xl (Beta Sanna)] 50 mg PO DAILY #30 tab 07/30/19 Ticagrelor [Brilinta] 90 mg PO BID #60 tab 07/30/19 The following prescriptions were given: Ticagrelor [Brilinta] 90 mg PO BID #60 tab Transmission Status: Pending to [facility]/pharmacy #[id number] Atorvastatin Calcium [Lipitor] 40 mg PO QHS #30 tab Transmission Status: Pending to [facility]/pharmacy #[id number] Metoprolol(XL)Succ [Toprol Xl (Beta Sanna)] 50 mg PO DAILY #30 tab Transmission Status: Pending to [facility]/pharmacy #[id number] Primary Care Physician: Irene Vergara DO [Primary Care Provider] - Please follow up with your Primary Care Physician in: one week Test Results: Test results from this visit will be discussed in further detail at your follow-up appointment, if applicable. Please Follow Up With: Irene Vergara DO Please Follow Up With: Bryon Jackson MD When: 2-3 weeks; call office for appointment Proposed Discharge Date: 07/30/19
--- NOTE | 2019-07-30 09:36 | DS.PCM_ITS ---
Discharge Date and Diagnosis Date of Admission: 07/27/19 Date of Discharge: 07/30/19 - Primary Discharge Diagnosis Active and Suspected Problems (Last Reviewed 07/27/19 @ 23:21 by Krishna Cody DO) angina s/p cardiac cath with PCI - Secondary Discharge Diagnosis Chronic Problems (Last Reviewed 07/27/19 @ 23:21 by Krishna Cody DO) Essential (primary) hypertension (Chronic) Atherosclerosis of coronary artery of [place] heart without angina pectoris (Chronic) Non-rheumatic aortic stenosis (Chronic) Hospital Course and Treatment Imaging Results: Diagnostic Data Chest X-Ray 07/27/19 21:56 IMPRESSION: No acute cardiopulmonary process. Electronically Signed: Lexie Ulloa MD at 22:29 EST Tel , Service support , cardiology- Dr Jackson Operations: None Procedures: Cardiac catheterization, Stress test Summary of Care Provided: The patient is a 63 year old F with a past medical history significant for hypertension and bicuspid aortic valve status post replacement. She was admitted through the ED on 07/27/2019 with a complaint of chest pain which have been going on for several months and worsened on the day of admission. It was retrosternal and worsened by exertion and relieved by rest. On admission tropon ins x3 were negative but EKG did show some ST depressions in the lateral leads which were not present previously. She was admitted to be managed for chest pain to rule out ACS. She had a stress test which showed evidence of anterior wall ischemia so cardiology was consulted. Of note, lipid panel done during admission showed elevated total cholesterol of 214 and LDL of 143 so she was started on high intensity statin. Patient had cardiac cath on 07/29/2019 which revealed severe disease involving the LAD, diagonal and moderate circumflex arteries as well as a high-grade nondominant RCA. She was referred for immediate PCI and had drug-eluting stents placed in the LAD and diagonal vessel. Metoprolol was added onto her medication. Patient remained stable and was discharged home on 07/30/2019. She is follow-up with her primary care doctor Patient seen and examined prior to discharge. She had no complaints and felt well. Review of systems is otherwise negative. Labs and vitals reviewed. Home medications reviewed and reconciled. o/e: Vital Signs Height 5 ft 4.17 in Weight: 136 lb 3.931 oz Weight in Pounds 136.2 lbs BMI 23.2 Pulse Ox 96 Temperature 98.2 F Pulse Rate 89 Respiratory Rate 18 Blood Pressure [BP] 155/93 Blood Pressure 134/76 Blood Pressure Position [BP] Supine Blood Pressure Position Sitting [] General: Alert, Oriented x3, Cooperative, No apparent distress HEENT: Atraumatic, PERRLA, EOMI, Normocephalic Oral: Moist Mucosa Neck: Supple, No JVD, Negative Carotid Bruits Lungs: Clear to auscultation, Normal air movement, No rhonchi, No wheeze, No rales Cardiovascular: Regular rate, Regular Rhythm, Normal S1, Normal S2, No murmurs Abdomen: Bowel Sounds Present, Soft, Non Tender, Non-Distended, No Hepato- splenomegaly Extremities: No clubbing, No cyanosis, No edema, Capillary Refill Less than 3 Seconds Skin: No rashes, No breakdown Musculoskeletal: No Tenderness to Palpation of Joints or Extremities Lymphatic: No Cervical, Supraclavicular, or Inguinal Adenopathy Neurological: Cranial nerves II-XII grossly intact, Neuro grossly intact, Motor Exam 5/5 strength throughout Psych/Mental Status: Normal Affect, Appropriate, Alert and oriented to time, place, person, mood and affect Plan as above. - Physical Exam Vitals/I&O's: Vital Signs Temp Pulse Resp BP Pulse Ox 98.1 F 61 13 123/78 H 97 07/30/19 04:00 07/30/19 07:00 07/30/19 06:58 07/30/19 06:58 07/30/19 06:58 Oxygen Flow Rate (L/min) 2 Oxygen Delivery Method Room Air Weight: 136 lb 3.931 oz Body Mass Index (BMI) 23.3 Intake and Output for Last 24 Hours 07/28/19 07/29/19 07/30/19 23:59 23:59 23:59 Intake Total 2059 1467.75 / 1467.75 Output Total 0 / 0 Balance 2059 1467.75 / 1467.75 Laboratory Results 07/29/19 16:30: WBC 6.1, RBC 4.64, Hgb 13.4, Hct 40.1, MCV 86.4, MCH 28.9, MCHC 33.4, RDW Std Deviation 37.9, RDW Coeff of José Miguel 12.0, Plt Count 215, MPV 9.5 07/30/19 04:05: WBC 7.1, RBC 4.71, Hgb 13.9, Hct 41.4, MCV 87.9, MCH 29.5, MCHC 33.6, RDW Std Deviation 38.1, RDW Coeff of José [place] 11.8, Plt Count 202, MPV 9.4 07/30/19 04:05: Sodium 140, Potassium 3.6, Chloride 110 H, Carbon Dioxide 22.0, Anion Gap 8, BUN 16, Creatinine 0.78, Estim Creat Clear Calc 64.58, Est GFR (MDRD) Af Amer 96, Est GFR (MDRD) Non-Af 80, BUN/Creatinine Ratio 20.6 H, Glucose 83, Calcium 8.9, Total Bilirubin 0.90, AST 14 L, ALT 20, Alkaline Phosphatase 49, Total Protein 6.5, Albumin 3.4, Globulin 3.1, Albumin/Globulin Ratio 1.1 Current Medications Acetaminophen (Tylenol) 650 mg PO Q6H PRN PRN PRN Reason: Pain Score 1-10/Temp > 100.7 F Aspirin (Aspirin, Baby) 81 mg PO DAILY@0800 [facility] Last Admin: 07/29/19 05:32 Dose: 81 mg Documented by: Atorvastatin Calcium (Lipitor) 40 mg PO QHS [facility] Last Admin: 07/29/19 23:05 Dose: 40 mg Documented by: Atropine Sulfate () 0.5 mg IV UD PRN PRN Reason: HR <50 bpm Dextrose (D50w Syringe) 0 gm IV X1 PRN; Protocol PRN Reason: Hypoglycemia Glucagon () 1 mg IM .X1 PRN PRN Reason: Hypoglycemia Heparin Sodium (Beef Lung) (Heparin 500 Unit/5 Ml (100/Ml)) 500 unit IV UD PRN PRN Reason: HEPARIN FLUSH Sodium Chloride () 250 mls @ 15 mls/hr IV .A27V04H PRN PRN Reason: Saline Flush Sodium Chloride () 1,000 mls @ 15 mls/hr IV .Q48H [facility] Last Infusion: 07/29/19 20:15 Dose: Infused Documented by: Labetalol HCl (Trandate) 5 mg IV X1 PRN PRN Reason: SBP > 160 when pulling sheath Stop: 07/31/19 14:18 Losartan Potassium (Cozaar) 100 mg PO DAILY [facility] Last Admin: 07/29/19 05:32 Dose: 100 mg Documented by: Melatonin (Melatonin) 3 mg PO QHS PRN PRN PRN Reason: INSOMNIA Last Admin: 07/28/19 00:26 Dose: 3 mg Documented by: Metoprolol Succinate (Toprol Xl (Beta Sanna)) 50 mg PO DAILY [facility] Nitroglycerin (Nitrostat) 0.4 mg SUBLINGUAL Q5M PRN PRN Reason: CARDIAC/CHEST PAIN Ondansetron HCl (Zofran) 4 mg IV Q8H PRN PRN PRN Reason: NAUSEA/VOMITING Pantoprazole Sodium (Protonix) 20 mg PO DAILY [facility] Last Admin: 07/29/19 09:37 Dose: 20 mg Documented by: Sodium Chloride () 10 - 40 ml IV UD PRN PRN Reason: SALINE FLUSH Last Admin: 07/29/19 12:20 Dose: 10 ml Documented by: Sodium Chloride () 500 ml IV BOLUS PRN PRN Reason: VASO-VAGAL PROTOCOL Ticagrelor (Brilinta) 90 mg PO BID [facility] Last Admin: 07/29/19 23:05 Dose: 90 mg Documented by: Discharge Diet: Low fat/ Low Cholesterol Discharge Activity: Return to Normal Activity Weight Bearing Status: Weight bearing as tolerated Call your doctor if you observe: Fever of 101 or Higher, Shortness of breath, Chest pain Home Medications: Medications to take at Discharge Aspirin [Aspirin, Baby] 81 mg PO DAILY@0800 02/18/16 losartan 100 mg tablet 100 mg PO DAILY #90 tab 05/02/19 Omeprazole 20 mg PO DAILY 07/27/19 Atorvastatin Calcium [Lipitor] 40 mg PO QHS #30 tab 07/30/19 Metoprolol(XL)Succ [Toprol Xl (Beta Sanna)] 50 mg PO DAILY #30 tab 07/30/19 Ticagrelor [Brilinta] 90 mg PO BID #60 tab 07/30/19 Following Prescrptions Were Given to Patient: Ticagrelor [Brilinta] 90 mg PO BID #60 tab Transmission Status: [facility] by [id number] Atorvastatin Calcium [Lipitor] 40 mg PO QHS #30 tab Transmission Status: Re[facility] by [id number] Metoprolol(XL)Succ [Toprol Xl (Beta Sanna)] 50 mg PO DAILY #30 tab Transmission Status: Received by [id number] Primary Care Physician: Irene Vergara DO [Primary Care Provider] - Please follow up with your Primary Care Physician in: one week Please Follow Up With: Irene Vergara DO Please Follow Up With: Bryon Jackson MD When: 2-3 weeks; call office for appointment Patient Instructions: Recognizing a Heart Attack or Angina, Angina Disposition: Home Minutes spent on discharge:: 40 Patient Condition:: Stable Medical Necessity - Tobacco Use Smoking Status: Never smoker Meaningful Use Info Meaningful Use Diagnoses (Choose all that apply): None applicable Code Visit OBSV E&M: 15356 Observation care discharge
[2019-07-30] MEDS: Aspirin 81 MG TAB.CHEW PO (09:37)
[2019-07-30] MEDS: TICAGRELOR 90 MG TABLET PO (09:37)
[2019-07-30] MEDS: Losartan Potassium 100 MG Tablet PO (09:38)
[2019-07-30] MEDS: Pantoprazole Sodium 20 MG Tablet PO (09:39)
[2019-07-30] MEDS: Metoprolol(XL)Succ 50 MG Tablet PO (09:47)
--- NOTE | 2019-07-30 09:53 | CASEMGMT ---
RN CM Assessment Presentation: Chest pain, PCI Intro role of CM and purpose of RN CM assessment to patient in room. Pt is awake, alert and able to participate in dc planning assessment.. Demographics, PCP and Pharmacy verified. Pt to dc today PCP: Dr. Vergara Specialists: Dr. Jackson Preferred Pharmacy: [facility] [place] Insurance: [employer] Insurance Prescription Benefit: NO. Lengthy discussion with pt re: prescriptions on dc. 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 Brilinta cost @ [facility] will be ~$400- with Good Rx card. Discussed with pt if Brilinta is cost prohibitive after first month, to notify cardiology office nurse that options will need to be pursued for after first month. Explained Good Rx card can be used for all prescriptions. LNOK: [place] [facility] Living Arrangements: Lives independently, no care needs identified. Transportation: drives DME: none HHC: none Patient DC goals: home DC PLAN: home Fidelia CHASE RN ACM
--- NOTE | 2019-07-30 10:00 | EKG12_ITS ---
Test Reason : Blood Pressure : / mmHG Vent. Rate : 067 BPM Atrial Rate : 067 BPM P-R Int : 178 ms QRS Dur : 094 ms QT Int : 388 ms P-R-T Axes : 066 050 044 degrees QTc Int : 409 ms Normal sinus rhythm Normal ECG When compared with ECG of 29-JUL-2019 14:45, MANUAL COMPARISON REQUIRED, DATA IS UNCONFIRMED Confirmed by TORSTEN CLARK, JADE ([id number]), editor farm journal ANDIE BRYAN ([id number]) on 08/12/2019 1:53:38 PM Referred By: Confirmed By:JADE SARMIENTO MD
--- NOTE | 2019-07-30 10:25 | CL.I_ITS ---
Patient Name: EBONI IRWIN Study Date: 07/29/2019 Performing: Yassine Santiago MD Ht: 64 inches 163 cm : 1955 Wt: 136.9 lbs 62 kg Age: 63 Gender: female BSA: 1.67 PROCEDURE(S) PERFORMED [id number] W OR WO PTCA, SINGLE CORONARY ARTERY [id number], EACH ADD'L CORONARY ART, SAME MAJOR CLINICAL PROFILE AND CO-MORBIDITIES Indications: ACS <= 24 hrs Heart Failure: None Stress/Imaging Stress Echocardiogram: Yes Result: Positive High Risk Stress Echocardiogram: Posit nehemiah High Risk CAD Presentations: Unstable angina. CONCLUSIONS Successful PCI with PCI of LAD/D2 bifurcation with JOYA to LAD and PTCA to D2. Successful JOYA to D1. RECOMMENDATIONS ASA Indefinitley Brilinta for at least 12 months Follow up with primary sourcing manager DESCRIPTION OF PROCEDURE The patient arrived to the procedure lab. The risks and benefits of the procedure as well as a full d escription of our services here and current unavailability of surgical backup were fully explained to the patient and/or their significant other prior to the catheterization. The Timeout was completed, verifying the correct patient and procedure. The patient's procedural site was prepped and draped in the usual fashion. Local anesthetic was given subcutaneously to right radial region with Lidocaine 2% Using a modified Seldinger technique,arterial access was obtained via the right radial artery, a 6Fr sheath was inserted. Left Coronary Artery selective angiography was performed in multiple views usin g a 5 Fr. 4.0 Dalton catheter. Right Coronary Artery selective angiography was then performed in multi ple views using a 5 Fr. 4.0 Dalton catheter.The images were reviewed and options discussed. A decision was then made to proceed with an Intervention, IVUS or other adjunct procedure. XB3 Guide catheter was inserted and engaged into the LCA. BMW Guide wire was advanced to the 1st Diagonal. Angiogram performed pre balloon dilatation. Runthru Guide wire was advanced to the LAD. 2x1 2 Emerge Balloon catheter was inserted. 2x12 Emerge Balloon catheter was inserted. PTCA balloon infla duglas at 8 atms for 16 secs. PTCA balloon inflated at 6 atms for 8 secs. PTCA balloon inflated at 8 suhas s for 16 secs. Angiogram performed post balloon dilatation. 2.5x24 Synergy Drug Eluting stent was adv anced across the lesion in the Mid LAD. Angiogram performed post stent deployment. Angiogram performe d pre stent deployment. 2.5x12 Synergy Drug Eluting stent was advanced across the lesion in the first diagonal, proximal. Angiogram performed post stent deployment. Angiogram performed post stent deploy ment. The arterial sheath was pulled and a TR Band was applied for hemostasis. 10cc air INTERVENTION INFORMATION LESION SITE: 2nd Diagonal (Ostial) Lesion Complexity: High/C, chronic total occlusion: No, lesion at bifurcation: Yes, thrombus present: No, lesion length: 5 mm, culprit lesion: Yes, Previously treated lesion: No Pre Stenosis: 80 % Pre intervention CARLOS flow: 3 PROCEDURE: Balloon Angioplasty PTCA was done to protect this vessel as the LAD stent was deployed jailing this vessel Post Stenosis: 60 % Post intervention CARLOS flow: 3 Lesion Devices: Sierra .014 BMW [place] Straight 190cm Terumo .014 Runthrough Extra Floppy 180cm straight Cardinal 6 Fr XB3.0 100cm Guide Catheter Ted Thalchemy EMERGE MR 2.00x12 BALLOON Ted Sci Synergy MR JOYA 2.50x24 LESION SITE: LAD (Mid) Lesion Complexity: High/C, chronic total occlusion: No, lesion at bifurcation: Yes, thrombus present: No, lesion length: 15 mm, culprit lesion: Yes, Previously treated lesion: No Pre Stenosis: 95 % Pre intervention CARLOS flow: 3 PROCEDURE: Drug Eluting Stent with pre dilatation. Post Stenosis: 0 % Post intervention CARLOS flow: 3 LESION SITE: 1st Diagonal (Proximal) Lesion Complexity: High/C, chronic total occlusion: No, lesion at bifurcation: No, thrombus present: No, lesion length: 12 mm, culprit lesion: Yes Pre Stenosis: 80 % Pre intervention CARLOS flow: 3 PROCEDURE: Drug Eluting Stent 0 % Post intervention CARLOS flow: 3 Lesion Devices: Ted Sci Jumia MR JOYA 2.50x12 COMPLICATIONS No Complications PROCEDURE MEDICATIONS Fentanyl 50 mcg IV Versed 1 mg IV Oxygen: 2 L/min via nasal cannula Brilinta 180 mg PO @ 07/29/2019 14:20:35 Heparin diluted in 23cc Heparinized saline. Patient given 10cc IA of this solution. 07/29/2019 13:29 :18 Heparin 4000 unit(s) IV 07/29/2019 13:52:29 Nitro 200 mcg IC 07/29/2019 14:13:35 Verapamil 2.5mg, Ntg 100mcgs, 2000 units of Heparin diluted in 23cc Heparinized saline. Patient give n 10cc IA of this solution. 07/29/2019 13:29:18 SUMMARY OF HEMODYNAMIC DATA Time AIR REST ECG 13:14:32 AO 114/76 (94) SA 13:31:09 RM AIR REST 13:49:50 Signed By Yassine Santiago MD On 07/30/2019 10:29:40 Signed By Yassine Santiago MD On 07/30/2019 10:24:33 Yassine Santiago MD
== END 2019-07-30 10:50 | disposition home or self-care (01) ==
LOC: ED 22:11 → PCU 23:28 → ICU 07-29 13:59
PROVIDERS: Specialist; Emergency Provider Emergency Medicine; Family Provider Family Medicine; PCP Family Medicine; Visit Provider Student in an Organized Health Care Education/Training Program
DX: R07.89 Other chest pain (principal); Z23 Encounter for immunization; I10 Essential (primary) hypertension; Q23.1 Congenital insufficiency of aortic valve; I25.110 Atherosclerotic heart disease of native coronary artery with unstable angina pectoris; K21.9 Gastro-esophageal reflux disease without esophagitis; E87.6 Hypokalemia; E78.5 Hyperlipidemia, unspecified; R94.39 Abnormal result of other cardiovascular function study; Z79.899 Other long term (current) drug therapy; Z95.3 Presence of xenogenic heart valve; Z79.82 Long term (current) use of aspirin
CPT/HCPCS: 36415; 71045; 80048; 80053; 80061; 84484; 85025; 85027; 92921; 92928; 93005; 93017; 93350; 93454; 96361; 96365; 96366; 99152; 99153; 99218; 99285; J7030; 90686; A4216; C1725; C1769; C1874; C1887; C1894; C9600; G0378; J1327; Q9967

== ENCOUNTER → 2019-09-13 13:51 | Outpatient (CLI) | payer OTHER, SELFPAY ==
[2019-09-05 14:16] VITALS: BMI 22.8
== END ==
PROVIDERS: Family Provider Family Medicine; PCP Family Medicine; Referring Provider Internal Medicine Cardiovascular Disease; Visit Provider Internal Medicine Cardiovascular Disease
DX: Z00.00 Encounter for general adult medical examination without abnormal findings (principal)

== ENCOUNTER 2019-09-19 11:53 | Day surgery (SDC) | payer OTHER, SELFPAY ==
[2019-09-05 12:20] VITALS: BMI 23.6
[2019-09-05 14:16] VITALS: BMI 22.8
[2019-09-13 14:52] LABS: Absolute Lymphocyte Count 1.66 X10^3/uL (0.83-4.51); Absolute Neutrophil Count 3.4 X10^3/uL (2.0-7.7); Basophil# 0.02 X10^3/uL; Basophil% 0.4 % (0-1); Eosinophil# 0.14 X10^3/uL; Eosinophils% 2.5 % (0-5); Hemoglobin 13.9 g/dL (12.0-15.0); Lymphocyte # 1.66 X10^3/ul (4.0); Lymphocyte % 29.9 % (19-41); Mean Corp Hgb Conc 33.1 g/dL (32-36); Mean Corpuscular Hgb 29.5 pg (27.0-32.0); Mean Corpuscular Volume 89.2 fL (81-99); Mean Platelet Vol. 10.2 fl (6.2-12.0); Monocyte# 0.37 X10^3/uL; Monocyte% 6.7 % (0-10); NRBC Flagged by Analyzer 0 % (0-5); Neutrophil # 3.35 X10^3/uL (2.7-7.7); Neutrophil % 60.3 % (47-70); Platelet Count 236 K/mm3 (150-450); RBC Distribution Width CV 12.4 % (11.6-14.6); RBC Distribution Width SD 40.7 fl (35.1-43.9); Red Blood Count 4.71 M/mm3 (4.2-5.4); White Blood Count 5.6 K/mm3 (4.4-11.0)
[2019-09-13 15:06] LABS: International Normalized Ratio 1.1; Partial Thromboplast Time 27.4 Seconds (24.1-36.2); Prothrombin Time (Protime)PT. 13.6 SECONDS (11.7-14.9)
[2019-09-13 15:29] LABS: Anion Gap 4 (5-15); BUN 16 mg/dL (7-18); BUN/Creat Ratio 16.9 RATIO (10-20); Calcium,Total 8.9 mg/dL (8.5-10.1); Chloride 108 mmol/L (98-107); Creatinine, Serum 0.95 mg/dL (0.55-1.02); EST Glomerular Filtration Rate 63 mL/min (>60); Est Glom Filt Rate - Afr Amer 77 mL/min (>60); Glucose 105 mg/dL (74-106); Potassium 3.9 mmol/L (3.5-5.1); Sodium Level 139 mmol/L (136-145)
[2019-09-18 08:14] VITALS: BMI 22.8
[2019-09-19] VITALS (17 sets, daily range): BP systolic 104–142; BP diastolic 54–78; PULSE 50–63; RESP 10–23; TEMP 36.5–36.8; O2SAT 95–100; BMI 22.6
--- NOTE | 2019-09-19 14:15 | EKG12_ITS ---
Test Reason : AM EKG Blood Pressure : / mmHG Vent. Rate : 052 BPM Atrial Rate : 052 BPM P-R Int : 212 ms QRS Dur : 094 ms QT Int : 440 ms P-R-T Axes : 041 045 043 degrees QTc Int : 409 ms Sinus bradycardia with 1st degree A-V block Otherwise normal ECG Confirmed by MONICA CLARK, NICKO ([id number]), graphic editor ROZINA CHÁVEZ ([id number]) on 09/23/2019 10:33:27 AM Referred By: Qiana Santiago Confirmed By:NICKO ANDERSON MD
[2019-09-19] MEDS: 0.9% Normal Saline 1,000 ML 60 ML IV (14:24)
--- NOTE | 2019-09-19 14:43 | CL.I_ITS ---
Patient Name: EBONI IRWIN Study Date: 09/19/2019 Performing: Yassine Santiago MD Ht: 64 inches 163 cm : 1955 Wt: 132.5 lbs 60 kg Age: 64 Gender: female BSA: 1.64 PROCEDURE(S) PERFORMED ND00-YGD W OR WO PTCA, SINGLE CORONARY ARTERY CLINICAL PROFILE AND CO-MORBIDITIES Indications: staged PCI of RCA Heart Failure: None Stress/Imaging Stress Echocardiogram: Yes Result: Positive Intermediate Risk Stress Echocardiogra m: Positive Intermediate Risk CAD Presentations: Other: staged PCI today. Pt. initially presented with unstable angina CONCLUSIONS [facility] Follow up with Dr. Renetta RICO Indefinitley Plavix for at least 12 months DESCRIPTION OF PROCEDURE The patient arrived to the procedure lab. The risks and benefits of the procedure as well as a full d escription of our services here and current unavailability of surgical backup were fully explained to the patient and/or their significant other prior to the catheterization. The Timeout was completed, verifying the correct patient and procedure. The patient's procedural site was prepped and draped in the usual fashion. Local anesthetic was given subcutaneously to right radial region with Lidocaine 2% . Using a modified Seldinger technique, arterial access was obtained via the right radial artery, a 6 Fr sheath was inserted.. The images were reviewed and options discussed. A decision was then made to proceed with an Intervention, IVUS or other adjunct procedure. JR 4 Guide catheter was inserted and engaged into the RCA. BMW Guide wire was advanced to the RCA . 2x15 Emerge Balloon catheter was inserted. Balloon catheter was advanced across lesion in the right coronary, proximal. PTCA balloon inflated at 8 atms for 10 secs. PTCA balloon inflated at 8 atms for 10 secs. PTCA balloon inflated at 6 atms for 8 secs. PTCA balloon inflated at 6 atms for 8 secs. Ang iogram performed post balloon dilatation. 2.25x38 Synergy Drug Eluting stent was inserted. Drug Eluti ng stent was advanced across the lesion in the right coronary, proximal. Drug Eluting stent was remov ed intact, failed to cross lesion 2.25x12 Emerge Balloon catheter was inserted. Balloon catheter was advanced across lesion in the right coronary, proximal. PTCA balloon inflated at 6 atms for 8 secs. P TCA balloon inflated at 6 atms for 8 secs. PTCA balloon inflated at 6 atms for 6 secs. PTCA balloon i nflated at 6 atms for 10 secs. PTCA balloon inflated at 6 atms for 6 secs. 2.25x38 Synergy Drug Eluting stent was reinserted Angiogram performed post stent deployment. The arterial sheath was pulled and a TR Band was applied for hemostasis. 12cc of air INTERVENTION INFORMATION LESION SITE: RCA (Proximal) Lesion Complexity: High/C, chronic total occlusion: No, lesion at bifurcation: No, thrombus present: No, lesion length: 35 mm, culprit lesion: Yes, Previously treated lesion: No Pre Stenosis: 90 % Pre intervention CARLOS flow: 3 PROCEDURE: Drug Eluting Stent with pre dilatation. Post Stenosis: 0 % Post intervention CARLOS flow: 3 Lesion Devices: Cardinal 6 Fr JR4 100cm Guide Catheter Sierra .014 BMW [place] Straight 190cm Ted Sci EMERGE MR 2.00x15 BALLOON Ted Sci Synergy MR JOYA 2.25x38 Ted Sci EMERGE MR 2.25x12 BALLOON COMPLICATIONS No Complications PROCEDURE MEDICATIONS Fentanyl 50 mcg IV Versed 1 mg IV Oxygen: 2 L/min via nasal cannula Heparin given IA 09/19/2019 13:13:31 Heparin 2000 unit(s) IV 09/19/2019 13:13:50 Verapamil 2.5mg, Ntg 100mcgs, 3000 units of Heparin given IA 09/19/2019 13:13:31 SUMMARY OF HEMODYNAMIC DATA Time AIR REST ECG 12:23:08 AO 88/49 (65) SA 13:14:23 AO 127/69 (91) 13:15:11 Signed By Yassine Santiago MD On 09/19/2019 14:43:12 Yassine Santiago MD
[2019-09-19] MEDS: Atorvastatin Calcium 40 MG Tablet PO (21:17)
[2019-09-20] VITALS (13 sets, daily range): BP systolic 85–144; BP diastolic 54–87; PULSE 45–71; RESP 9–14; TEMP 36.4–36.6; O2SAT 96–100
[2019-09-20 04:19] LABS: Hematocrit 41.1 % (37-47); Hemoglobin 13.7 g/dL (12.0-15.0); Mean Corp Hgb Conc 33.3 g/dL (32-36); Mean Corpuscular Hgb 29.3 pg (27.0-32.0); Mean Platelet Vol. 9.8 fl (6.2-12.0); Platelet Count 221 K/mm3 (150-450); RBC Distribution Width CV 12.3 % (11.6-14.6); RBC Distribution Width SD 39.6 fl (35.1-43.9); Red Blood Count 4.67 M/mm3 (4.2-5.4); White Blood Count 7.4 K/mm3 (4.4-11.0)
[2019-09-20 04:31] LABS: AST(SGOT) 12 U/L (15-37); Alanine Aminotransfer ALT/SGPT 21 U/L (13-56); Albumin, Serum 3.3 g/dL (3.2-5.0); Alkaline Phosphatase 50 U/L (45-117); Anion Gap 1 (5-15); BUN 21 mg/dL (7-18); BUN/Creat Ratio 23.6 RATIO (10-20); Calcium,Total 9.1 mg/dL (8.5-10.1); Chloride 112 mmol/L (98-107); Creatinine, Serum 0.89 mg/dL (0.55-1.02); EST Glomerular Filtration Rate 68 mL/min (>60); Est Glom Filt Rate - Afr Amer 82 mL/min (>60); Estimated Creatinine Clearance 55.87 ml/min; Globulin 3.3 g/dL (2.2-4.2); Glucose 91 mg/dL (74-106); Potassium 3.9 mmol/L (3.5-5.1); Protein, Total 6.6 g/dL (6.4-8.2); Sodium Level 142 mmol/L (136-145)
--- NOTE | 2019-09-20 06:30 | CRPHASE1 ---
Patient Communication Former Patient:: Phase I - Patient previously stented on 07/30/2019 and seen by CR staff. PHII Cardiac Rehab Discussed with Patient:: Yes Guide to Cardiac Rehab Given to Patient:: Yes Cardiac Rehab Facility Choice List Given to Patient:: Yes Choice Program [facility] PHII:: Communication Given to CR, Refer to [facility] Coal Shooter:: Qiana Santiago Refer Phase II Cardiac Rehab:: Yes Sessions:: 36 sessions - 3 days/wk, 12 weeks Risk Factors/Lifestyle Family History: Family History (Last Reviewed 09/05/19 @ 14:31 by Bryon Jackson MD) Father Myocardial infarction Heart disease Brother Heart disease Cardiac Rehabilitation Info Cardiac Rehabilitation Program Information: Cardiac Rehabilitation is important for patients like you who are recovering from a heart problem. Cardiac rehabilitation programs are recognized as integral to the continued care of the patient with coronary heart disease. The cardiac rehabilitation program is designed to optimize a patient's physical, psychological, and social functioning. Health resident care spec work in cardiac rehabilitation programs and assist you with getting the treatments you need to get stronger and healthier - like exercise, healthy eating habits, and medications. Cardiac rehabilitation has been show to help people with heart problems live longer and have better life enjoyment than people who do not go to cardiac rehabilitation. Please contact the Cardiac Rehabilitation Program at [facility] at in two weeks if you have not heard from them.
--- NOTE | 2019-09-20 06:31 | CRPH1.INSTRU ---
General Education CAD and cardiac anatomy and function:: Patient communicates acknowledgment, Not instructed Explanation of diagnoses and procedures:: Patient communicates acknowledgment, Not instructed Sign/Symptoms of [place]:: Patient communicates acknowledgment, Not instructed Antiplatelet therapy: Patient communicates acknowledgment, Not instructed Proper use of NTG-SL: Patient communicates acknowledgment, Not instructed Emergency procedures and activation of EMS: Patient communicates acknowledgment, Not instructed Compliance of all prescribed medications: Patient communicates acknowledgment, Not instructed - Patient seen by CR staff previously on 07/30/2019, booklet given. Patient communicates acknowledgment of risk factors.
--- NOTE | 2019-09-20 08:37 | DCINST_ITS ---
Discharge Diet: Low fat/ Low Cholesterol May shower in (days): 1 Lifting Restrictions: 10 pounds and also avoid any pushing or pulling for 3 days after your test. Call your doctor if your incision/area has: Continuous Slow Oozing, Sudden Increased Bleeding, Increased Pain/ Swelling, Increased Redness, Foul Smelling Discharge, Swelling at the incision site Call your doctor if you observe: Fever of 101 or Higher, Shortness of breath, Chest pain Remove Dressing in (days):: 1 Cleanse incision/area with: Soap & Water Additional Dressing/Incision Instructions:: Keep the dressing (bandage) on until the next morning. You may then shower, but do not take a tub bath for 5 days after your test. It is normal to have some tenderness and discomfort at the puncture site. Sometimes bruising also occurs. However, if pain, numbness, or coldness occurs below the puncture site (in your leg, toes, arms or fingers) call your doctor at once. You may have a small, marble sized knot at the punct ure site. This is normal. Do not rub it. It will go away in 4-6 weeks. Bleeding can occur from the area where the puncture was done. Blood may spurt or drip from the site. If blood spurts, apply pressure right away to stop bleeding and call 911. Although rare, bleeding into the tissue (hematoma) can also occur. If this happens, a large, firm area goose egg under the skin will appear. If any of these occur, lie down as flat as you can and have someone apply firm pressure to the cath site with a gauze pad or a clean washcloth for 10-15 minutes. Call 911 or go to the Emergency Department. Allergies/Adverse Reactions: Allergies lisinopril Adverse Reaction (Mild, Verified 09/05/19 12:20) Dry Cough Medications to take at Discharge aspirin 81 mg chewable tablet 81 mg PO DAILY@0800 #90 tab 09/05/19 atorvastatin 40 mg tablet 40 mg PO QHS #90 tab 09/05/19 clopidogrel 75 mg tablet 75 mg PO DAILY #90 tab 09/05/19 losartan 100 mg tablet 100 mg PO DAILY #90 tab 09/05/19 metoprolol succinate 50 mg tablet,extended release 24 hr 50 mg PO DAILY #90 tab 09/05/19 omeprazole 20 mg capsule,delayed release 20 mg PO DAILY #90 cap 09/05/19 Primary Care Physician: Irene Vergara DO [Primary Care Provider] - Test Results: Test results from this visit will be discussed in further detail at your follow- up appointment, if applicable. Please Follow Up With: Nery Whitfield PA When: 10/04/19 at 1530 Cardiac Rehabilitation Info Cardiac Rehabilitation Program Information: Cardiac Rehabilitation is important for patients like you who are recovering from a heart problem. Cardiac rehabilitation programs are recognized as integral to the continued care of the patient with coronary heart disease. The cardiac rehabilitation program is designed to optimize a patient's physical, psychological, and social functioning. Health caregiver services home work in cardiac rehabilitation programs and assist you with getting the treatments you need to get stronger and healthier - like exercise, healthy eating habits, and medications. Cardiac rehabilitation has been show to help people with heart problems live longer and have better life enjoyment than people who do not go to cardiac rehabilitation. Please contact the Cardiac Rehabilitation Program at [facility] at in two weeks if you have not heard from them.
[2019-09-20] MEDS: Aspirin 81 MG TAB.CHEW PO (08:40)
[2019-09-20] MEDS: Clopidogrel Bisulfate 75 MG Tablet PO (08:40)
[2019-09-20] MEDS: Pantoprazole Sodium 20 MG Tablet PO (08:40)
[2019-09-20] MEDS: Losartan Potassium 100 MG Tablet PO (08:41)
[2019-09-20] MEDS: Metoprolol(XL)Succ 50 MG Tablet PO (08:41)
--- NOTE | 2019-09-20 10:00 | EKG12_ITS ---
Test Reason : POST-PCI Blood Pressure : / mmHG Vent. Rate : 053 BPM Atrial Rate : 053 BPM P-R Int : 210 ms QRS Dur : 082 ms QT Int : 434 ms P-R-T Axes : 069 052 054 degrees QTc Int : 407 ms Sinus bradycardia with 1st degree A-V block Otherwise normal ECG Confirmed by MONICA CLARK, NICKO ([id number]), slot editor ROZINA CHÁVEZ ([id number]) on 09/23/2019 10:39:20 AM Referred By: Qiana Santiago Confirmed By:NICKO ANDERSON MD
== END 2019-09-20 11:10 | disposition home or self-care (01) ==
LOC: CLSP 11:54 → ICU 09-20 10:07
PROVIDERS: Internal Medicine Cardiovascular Disease; Family Provider Family Medicine; PCP Family Medicine; Referring Provider Specialist; Visit Provider Specialist
DX: I25.110 Atherosclerotic heart disease of native coronary artery with unstable angina pectoris (principal); I10 Essential (primary) hypertension; E78.5 Hyperlipidemia, unspecified; Z79.02 Long term (current) use of antithrombotics/antiplatelets; Z79.82 Long term (current) use of aspirin; Z79.899 Other long term (current) drug therapy; Z95.5 Presence of coronary angioplasty implant and graft; Z95.2 Presence of prosthetic heart valve
CPT/HCPCS: 36415; 80048; 80053; 85025; 85027; 85610; 85730; 92928; 93005; 99152; 99153; J7030; J7040; C1725; C1769; C1874; C1887; C1894; C9600; Q9967

== ENCOUNTER → 2019-09-24 07:54 | Outpatient (CLI) | payer OTHER, SELFPAY ==
[2019-09-19 14:10] VITALS: BMI 22.6
--- NOTE | 2019-09-24 08:24 | CR.ITP_ITS ---
General Information - General Information Admitting Diagnosis: PCI W/COROANRY STENT PLACEMENT - Education/Goals Barriers to Learning: None, Vision Impairment - WEARS READING EYE WEAR Individual Counseling: Initial Assessment: Abnormal Cholesterol Levels, High Blood Pressure Cardiac Rehabilitation Goals: 1. Maintain the individual as the primary focus of care. 2. To improve the patient's quality of life. 3. Identification of ca rdiac risk factors and provide cardiac risk factor management. 4. Enhance the psychosocial status of the patient. 5. Reconditioning enough to allow the patient to resume customary activities. 6. Control symptoms of cardiac disease Scale for measuring improvement of personal goals: Enter appropriate number in Comments. 2 = Unchanged. 3 = Slightly Better. 4 = Moderate Improvement. 5 = Met my Goal Personal Goals: Initial Assessment: Participate in home exercise program, Get back to work, or to resume activities faster, Improve muscle strength and endurance, Control risk factors (learn risk factor modification) Exercise - Initial Assessment - Visit Date of Eval: 09/24/19 - Stages of Change Stages of Change:: Action - Stress Test SpO2 (%):: 96 - Physician Prescribed Exercise Modalities: Treadmill, Rower, Airdyne, NuStep Frequency (days/week): 3x/week for 12 weeks [36 sessions] Duration (Minutes):: 30-45 Intensity: 60-80% age predicted maximum heart rate reserve - SINUS BRADYCARDIA WITH FIRST DEGREE AV BLOCK METs - Progression: 0.5-1.0 MET, RPE -14 WEEK: 3.5 Target Heart Rate:: 103-133 - Hypertension Do any of the following apply?: Yes, Medication Resting Blood Pressure:: 128/86 - Intervention Home Exercise/Activity Goal:: Moderate Exercise 30 min/day x 5 days/wk - Education Goals:: Warm-up, RPE MARLEN Scale, S/S, Safe Exercise, Self-Monitoring - Exercise Program Goals Exercise Program Goals: Aerobic Activity >30 min Nutrition - Initial Assessment - Program Goals Nutrition Program Goals: LDL <70. Total Cholesterol <200. HDL >45. Triglycerides <150. HgbA1C <7%. BMI <25 - Visit Date of Assessment:: 09/24/19 - Stages of Change Stages of Change:: Action - Lipids Total Cholesterol (mg/dL) Goal = less than 200 mg/dL: 214 - 07/28/2019 HDL Cholesterol (mg/dL) Goal = less than 45 mg/dL: 56 LDL Cholesterol (mg/dL) Goal = less than 70 mg/dL: 143 Triglycerides (mg/dL) Goal = less than 150 mg/dL: 76 - Diabetes Diabetes:: No Insulin: No Non-Insulin Dependent?: No - Weight Management Height: 5 ft 4 in Weight:: 132 lb 8 oz Body Fat %:: 22.8 - Intervention Referral to dietitian:: No Referral to Diabetic Clinic:: No Will attend diet classes:: Yes - Education Gave educational materials for:: Healthy eating Tobacco - Initial Assessment - Program Goals Tobacco Program Goals: Complete smoking cessation. Attend education classes. Improve Knowledge Test score - Stage of Change Stages of Change:: Action - Learning Barriers Learning Barriers: Vision - WEARS READING GLASSES, Ready to Learn - Family Support Do you have family support?: Yes - Tobacco Use Tobacco Use: Non-smoker Do you use smokeless tobacco?: No - Intervention Smoking Cessation Referral:: No Individual Education/Counseling:: No Education Schedule Given:: Yes - Education Attended class for:: Treating Heart Disease, How The Heart Works, What it means to have Heart Disease, How Coronary Artery Disease is Diagnosed, Heart P rocedures, What Heart Medications Do, Risk Factors & Modifications, Living an Active Life, Nutrition, Emotions & Heart Disease, Stress Management & Relaxation, Sleep Disorders & Heart Disease Psychosocial - Initial Assess - Target Goals Target Goals: Assess presence or absence of depression. Using a valid screening tool, maximizes coping skills. Positive support system - Stages of Change Stages of Change:: Action - Psychosocial Test Tool Used:: HANDS Depression Questionnaire - Intervention PS - Interventions: Yes Attend Stress Management Classes, No Referral to Mental Health, No Referral to [facility] Case Management, No Referral to Physician, No Uses Stress Management Skills - Education Gave educational materials for:: Coping techniques, Signs & symptoms of depression, Stress management, Relaxation techniques - Patient/Program Goal Preventative Medication(s):: Aspirin, KG inhibitor, Clopidogrel, Beta papi, Statin/lipid - Assistive Devices Assistive Devices:: None Fall Risk Assessed:: Yes Patient Health Questionnaire Initial Assessment 1. Little interest or pleasure in doing things: Not at all 2. Feeling down, depressed, or hopeless: More than half the days 3. Trouble falling or staying asleep, or sleeping too much: Several days 4. Feeling tired or having little energy: Several days 5. Poor appetite or overeating: Several days 6. Feeling bad about yourself -- or that you are a failure or have let yourself or your family down: Not at all 7. Trouble concentrating on things, such as reading the newspaper or watching television: Not at all 8. Moving or speaking so slowly that other people could have noticed. Or the opposite - being so fidgety or restless that you have been moving around a lot more than usual: Not at all 9. Thoughts that you would be better off , or of hurting yourself in some way: Not at all How difficult have these problems made it for you to do your work, take care of things at home, or get along with other people?: Not difficult at all Total Score: 5 FOX-Q SV Test - Statements CAD is a disease of the arteries in the heart: False Examples of risk factors for heart disease: True Angina is chest pain or discomfort: True The benefits of resistance training include: True Eating more meat and dairy products: False Anti-platelet medications such as aspirin are important: True The only effective way to manage stress: False An exercise warm-up slowly increases heart rate: True Prepared, processed foods usually have high sodium: True Depression is common after a heart attack: True The statin medications lower cholesterol: True To control blood pressure, lower the amount of sodium: True If someone gets chest discomfort during walking: False Transfats are partially hydrogenated vegetable oils: True Sleep apnea that is not treated increases the risk: False To control cholesterol, one should become a vegetarian: False Someone knows if he/she is exercising at the right level: False Diabetes cannot be prevented with exercise & health eating: False Stress is a large risk for heart attack: True A diet that can help lower blood pressure is rich in: True - Total Score Total Correct Responses: 19 Self-Efficacy Initial Assessment We would like to know how confident you are in doing certain activities. Please select your confidence level for:: Select your confidence level for the following using the scale 1-10 where 1 is not at all confident and 10 is totally confident. Your score is the average of all 6 responses. Fatigue: How confident are you that you can keep the fatigue caused by your disease from interfering with the things you want to do? Select Number: 10 Physical Discomfort or Pain: How confident are you that you can keep the physical discomfort or pain of your disease from interfering with the things you want to do? Select Number: 10 Emotional Distress: How confident are you that you can keep the emotional distress caused by your disease from interfering with the things you want to do? Select Number: 10 Other Symptoms or Health Problems: How confident are you that you can keep other symptoms or health problems from interfering with the things you want to do? Select Number: 9 Different Tasks and Activities: How confident are you that you can do the different tasks and activities needed to manage your health condition so as to reduce your need to see a doctor? Select Number: 10 Medication: How confident are you that you can do things other than just taking medication to reduce how much your illness affects your everyday life? Select Number: 10 Total Score:: 9 Nutrition Survey - Nutrition Survey Instructions Scoring Instructions: Scoring is as follows: Yes = 1 points. No = 0 point. Patient score that is >/=12 is considered to be at potential nutritional risk and could benefit from a referral to a registered dietitian. - Nutrition Survey Initial Have you lost >10 lbs over the past 2 months without trying?: No Are you following a special diet at home for diabetes, low fat, or low salt?: Yes Are you interested in meeting with a dietitian for help understanding your diet?: No Do you eat less than 3 meals a day?: No Do you eat fatty meats (cherry, sausage, ribs, etc), fried foods, desserts, large amounts of salad dressings, margarine, butter, or cheese most days?: No Do you have food allergies? [Enter types in comment field]: No Do you eat in restaurants more than 3 times a week?: No Do you season food with salt, seasoning salt, or garlic salt?: Yes - SOMETIMES
--- NOTE | 2019-09-24 08:24 | CR.HP_ITS ---
CR - History & Physical - General Arrival date:: 09/24/19 Arrival time:: 07:45 Date of Referral:: 09/19/19 Date of CR Evaluation:: 09/24/19 Referring Physician: Dr. BRYON SARMIENTO Primary Diagnosis: PCI W/STENTING - History of Present Cardiac Event Onset Date: Enter Onset Date of cardiac illnesses in Comment field below Current stable Angina Pectoris:: No Acute Myocardial Infarction within 12 months:: No Coronary Artery Bypass Graft:: No Heart valve replacement or repair:: Yes - AVR PROSTHETIC VALVE REPLACEMENT 2009 PTCA or coronary stenting:: Yes - 09/19/2019 Heart or Heart-Lung Transplant:: No Heart Failure EF <35%:: No Interventions with present event:: HEART CATH Were there any complications?: NONE HER LVEF IS ESTIMATED AT 70% - Medications Home Medications: Ambulatory Orders Medication Instructions Recorded aspirin 81 mg chewable tablet 81 mg PO DAILY@0800 #90 tab 09/05/19 atorvastatin 40 mg tablet 40 mg PO QHS #90 tab 09/05/19 clopidogrel 75 mg tablet 75 mg PO DAILY #90 tab 09/05/19 losartan 100 mg tablet 100 mg PO DAILY #90 tab 09/05/19 metoprolol succinate 50 mg 50 mg PO DAILY #90 tab 09/05/19 tablet,extended release 24 hr omeprazole 20 mg capsule,delayed 20 mg PO DAILY #90 cap 09/05/19 release - Allergies Allergies/Adverse Reactions: Allergies lisinopril Adverse Reaction (Mild, Verified 09/05/19 12:20) Dry Cough - Sleep Disorder Evaluation Hx of Sleep Apnea: No Do you snore loudly (louder than talking or can be heard through closed doors)?: Yes - OCCASIONALLY Do you often feel tired/ fatigued/ sleepy during daytime?: No Has anyone observed you stop breathing during sleep?: No History of Hypertension (for STOP score): Yes STOP Results: Positive Advanced Directives - Advanced Directives Power of Take Down Sorter: Yes Living Will: Yes Advance Directives Information Provided: No Advance Directives on File: Yes - PATIENT BELIEVES THEY ARE ON FILE DNR Order?:: No - MOLST See MOLST form: No Past Medical History - Past Medical Illness Medical History: Past Medical History (Last Reviewed 09/05/19 @ 14:31 by Bryon Sarmiento MD) Atherosclerosis of coronary artery of [place] heart without angina pectoris (Chronic) I25.10 PCI-JOYA-Mid LAD w/ 2.5 x 24 mm Synergy and JOYA-D1 w/ 2.5 x 12 mm Synergy Stent 07/29/19 Non-rheumatic aortic stenosis (Chronic) I35.0 Essential (primary) hypertension (Chronic) I10 Hyperlipemia (Chronic) E78.5 Bicuspid aortic valve Q23.1 - Past Surgical History Surgical History: Past Surgical History (Last Updated 09/19/19 @ 16:47 by Tanya Gordon) History of coronary artery stent placement (Resolved) Onset Date: 09/19/19 Z95.5 PCI-JOYA-Mid LAD w/ 2.5 x 24 mm Synergy and JOYA-D1 w/ 2.5 x 12 mm Synergy Stent 07/29/19; WWJ-JWY-Pefu RCA w/ 2.5 x Synergy Stent 09/19/2019 History of aortic valve replacement (Resolved) Onset Date: 12/2009 Z95.2 21 mm Omero Gilmore bioprosthetic aortic valve replacement in December 2009 History of Z98.891 History of left heart catheterization Onset Date: 11/20/09 Z98.890 Lung nodule R91.1 removal nodule RLL Surgical History: - - Status post aortic valve replacement - Family History Summary Family History: Family History (Last Reviewed 09/05/19 @ 14:31 by Bryon Sarmiento MD) Father Myocardial infarction Heart disease Brother Heart disease Social History - Smoking History Smoking Status: Never smoker Hx Tobacco Use: No Hx Smoking Exposure: No - Alcohol Use Alcohol Usage: No - Substance Abuse Hx Substance Use: No - Occupation Occupation (List type of work in comments):: Employed Hours worked per day:: 0 - 15 PER WEEK/ [employer] - Hobbies, Recreation, Social Activities Hobbies: Walking, Exercise - MEMBER AT [employer], Other Recreational Activities: I am able to engage in most, but not all activities Social Environment - Status Marital Status: - Current Living Arrangements Living Environment:: Spouse - Children How many children do you have?: 3 Do any of your children live nearby?: Yes - [place] WITHIN AN HOUR - Safety Do you feel safe in your surroundings?: Yes - Assistance Do you need any assistance at home?: NONE Review of Systems - Review of Systems Hints: Right click = Denies (Slash). Left click = Reports ([place]) Review of Present Symptoms: Reports: Appetite - Normal, Appetite - Special Diet - LOW FAT/LOW CHOLESTEROL/NO ADDED SODIUM DIET, Sleep - Normal. Denies: Sh ortness of Breath at Rest, Shortness of Breath with Exertion, Angina, Dizziness/Lightheadedness, Fatigue, Heart Arrhythmia/Irregularities - Pain Is Patient Pain Free?: Yes Pain Location: none Pain Level: 0/10 Risk Factor Assessment - Chief Complaint Chief Complaint: PATIENT IS A VERY NICE 64 YR OLD FEMALE PATIENT OF DR. SARMIENTO WHO PRESENTS TO CARDIAC REHAB TODAY FOLLOWING A RECENT PCI INTERVENTION WITH CORONARY STENT PLACEMENT. THE PATIENT HAS A PREVIOUS HEAERT HISTORY W/AORTIC VALVE REPLACEMENT IN 2009. - Vital Signs Temperature: 98.6 F Respiratory Rate: 14 Pulse Ox: 96 Blood Pressure: 128/86 Nailbeds:: PINK - Pulse Pulse Rate: 64 - Hypertension Blood Pressure Sitting - Left Arm: 128/86 - RR 14, SPO2 96% - Blood Cholesterol/Lipids Total Cholesterol (mg/dL) Goal = less than 200 mg/dL: 214 - 07/28/2019 HDL Cholesterol (mg/dL) Goal = less than 40 mg/dL: 56 LDL Cholesterol (mg/dL) Goal = less than 70 mg/dL: 143 Triglycerides (mg/dL) Goal = less than 150 mg/dL: 76 - Diabetes Nutrition Referral for Diabetes: No - Obesity Height: 5 ft 4 in Weight:: 132 lb 8 oz Weight in Pounds: 132.5 lbs Weight Source: Standing Scale Body Mass Index (BMI): 22.7 Nutritional Referral for Obesity: No - Risk Stratification Risk Guidelines: Lowest Risk: Risk Factor for Smoking, Risk Factor for Dyslipidemia, Risk Factor for Diabetes, Risk Factor for Obesity, Risk Factor for Sedentary Lifestyle, Risk Factor for Depression, Moderate Risk: Risk Factor for Dyslipidemia, Risk Factor for Hypertension - For Smoking Smoking Risk Guidelines: Smoking Low Risk: None or quit greater than 6 months ago. Smoking Moderate Risk: Smoker or quit 6 months or less ago. Smoking High Risk: Smoker - For Dyslipidemia Dyslipidemia Risk Guidelines: Low Risk: Moderate Risk: High Risk: 15-25% fat 25.1-29% fat >/= 30% fat. <7% sat fat 7-9% sat fat >9% sat fat. <150 mg chol 150-299 mg chol >/= 300 mg chol. LDL <100 LDL 100-129 LDL >/= 130. Chol/HDL ratio <5.0 Chol/HDL ratio 5.0-6.0 Chol/HDL ratio >6.0. Triglycerides <100 Triglycerides 100-149 Triglycerides >/= 150 - For Diabetes Mellitus Diabetes Risk Guidelines: Diabetes Low Risk: HgA1c <6.5% and/or FBG <120. Diabetes Moderate Risk: HgA1c 6.6-7.9% and/or FBG 120-180. Diabetes High Risk: HgA1c >/= 8% and/or FBG >180 - For Obesity/Overweight Obesity/Overweight Risk Guidelines: Obesity Low Risk: BMI <25.0. Obesity Moderate Risk: BMI 25-29.9. Obesity High Risk: BMI >/= 30.0 - For Hypertension Hypertension Risk Guidelines: Hypertension Low Risk: Systolic <120 and Diastolic <80. Hypertension Moderate Risk: Systolic 120-139 and Diastolic 80-89. Hypertension High Risk: Systolic >/= 140 and Diastolic >/= 90 - For Sedentary Lifestyle Sedentary Lifestyle Risk Guidelines: Sedentary Lifestyle Low Risk: >/= 1,500 kcal/week. Sedentary Lifestyle Moderate Risk: 700-1,499 kcal/week. Sedentary Lifestyle High Risk: < 700 kcal/week - For Depression Depression Risk Guidelines: Depression Low Risk: Not clinically depressed. Depression Moderate Risk: Mildly depressed. Depression High Risk: Clinically depressed - Family History Family History: Family History (Last Reviewed 09/05/19 @ 14:31 by Bryon Sarmiento MD) Father Myocardial infarction Heart disease Brother Heart disease Motivation - Motivation to Participate On a scale of 1 to 10, how prepared are you to commit to attending program?: 10 What do you see as barriers to successfully being able to complete the program?: SCHEDULE. What do you see as the benefits of succesfully completing the program? In other words, what do you hope to get out of participating in the program?: GETTING BACK TO MY REGULAR ROUTINE AND PHYSICAL ACTIVITY. Are there issues you are dealing with that will interfere with completing the program?: NONE Do you have a spouse or signficant other, family or friends who will help support you to complete the program?: YES
[2019-09-24 08:45] VITALS: BP 128/86; PULSE 64; RESP 14; TEMP 37; O2SAT 96; BMI 22.7
[2019-09-24 09:05] VITALS: BP 128/86
== END ==
PROVIDERS: Family Provider Family Medicine; PCP Family Medicine; Referring Provider Internal Medicine Cardiovascular Disease; Visit Provider Internal Medicine Cardiovascular Disease
DX: I25.10 Atherosclerotic heart disease of native coronary artery without angina pectoris (principal); I10 Essential (primary) hypertension; E78.5 Hyperlipidemia, unspecified; Q23.1 Congenital insufficiency of aortic valve; Z95.5 Presence of coronary angioplasty implant and graft; Z95.2 Presence of prosthetic heart valve; Z79.82 Long term (current) use of aspirin; Z79.899 Other long term (current) drug therapy

== ENCOUNTER → 2019-10-07 09:07 | Outpatient (CLI) | payer OTHER, SELFPAY ==
[2019-10-04 15:36] VITALS: BMI 21.9
[2019-10-07 10:33] LABS: AST(SGOT) 16 U/L (15-37); Alanine Aminotransfer ALT/SGPT 26 U/L (13-56); Albumin, Serum 3.9 g/dL (3.2-5.0); Alkaline Phosphatase 53 U/L (45-117); Bilirubin, Direct 0.26 mg/dL (0.00-0.30); Cholesterol 122 mg/dL (200); Globulin 3.4 g/dL (2.2-4.2); High Density Lipoprotein 48 mg/dL; Protein, Total 7.3 g/dL (6.4-8.2); Triglycerides 86 mg/dL; Very Low Density Lipoprotein 17 mg/dL (5-40)
== END ==
PROVIDERS: PCP Family Medicine; Referring Provider Physician Assistant Medical; Visit Provider Physician Assistant Medical
DX: I10 Essential (primary) hypertension (principal); E78.5 Hyperlipidemia, unspecified; I25.10 Atherosclerotic heart disease of native coronary artery without angina pectoris; Z95.2 Presence of prosthetic heart valve
CPT/HCPCS: 36415; 80061; 80076

== ENCOUNTER → 2019-10-09 09:54 | Outpatient (CLI) | payer OTHER, SELFPAY ==
[2019-10-04 15:36] VITALS: BMI 21.9
--- NOTE | 2019-10-09 09:55 | CDU_ITS ---
Reason For Study: BRUIT Rt. Velocities/BP Lt. Velocities/BP Prox CCA 85/15 cm/sec. Prox CCA 97/28 cm/sec. Mid CCA 96/25 cm/sec. Mid CCA 90/27 cm/sec. Dist CCA 111/32 cm/sec. Dist CCA 83/30 cm/sec. Prox ICA 60/23 cm/sec. Prox ICA 72/25 cm/sec. Mid ICA 76/28 cm/sec. Mid ICA 83/33 cm/sec. Dist ICA 128/33 cm/sec. Dist ICA 106/41 cm/sec. Rt. ICA/CCA = 1.2. Lt. ICA/CCA = 1.1. Prox ECA 97/12 cm/sec. Prox ECA 111/27 cm/sec. Rt. Vert. 52/18 cm/sec. Lt. Vert. 43/107 cm/sec. Right Extracranial There is intimal thickening but no significant atherosclerotic plaque noted in the right common carotid artery. There is homogeneous, smooth atherosclerotic plaque noted in the right internal carotid artery. There is intimal thickening but no significant atherosclerotic plaque noted in the right external carotid artery. Antegrade flow is noted in the right vertebral artery. There is homogeneous, smooth atherosclerotic plaque noted in the right bulb. Left Extracranial There is homogeneous, smooth atherosclerotic plaque noted in the left common carotid artery. There is homogeneous, smooth atherosclerotic plaque noted in the left internal carotid artery. There is intimal thickening but no significant atherosclerotic plaque noted in the left external carotid artery. Antegrade flow is noted in the left vertebral artery. There is homogeneous, smooth atherosclerotic plaque noted in the left bulb. Procedure Carotid Duplex [id number]. Exam performed in department. Interpretation Summary No hemo-dynamically significant plaque or stenosis right extracranial internal carotid artery with less than 50% stenosis. Slight velocity elevation in the distal right internal carotid can be attributed to tortuosity at that site. <50% stenosis right external carotid No hemodynamically significant plaque or stenosis left extracranial internal carotid with less than 50% stenosis <50% stenosis left external carotid Patent and antegrade bilateral vertebrals Ordering Physician: Nery Whitfield/Bryon Jackson Referring Physician: MARYLOU TORRES Performed By: Lexy Mcmullen, RENEE, RVT
== END ==
PROVIDERS: PCP Family Medicine; Referring Provider Physician Assistant Medical; Visit Provider Physician Assistant Medical
DX: I25.10 Atherosclerotic heart disease of native coronary artery without angina pectoris (principal); R09.89 Other specified symptoms and signs involving the circulatory and respiratory systems
CPT/HCPCS: 93880

== ENCOUNTER 2019-10-11 08:00 | Outpatient (RCR) | payer OTHER, SELFPAY ==
[2019-09-24 08:45] VITALS: BMI 22.7
== END 2019-10-11 23:59 ==
LOC: CR 08:00
PROVIDERS: Family Provider Family Medicine; PCP Family Medicine; Referring Provider Internal Medicine Cardiovascular Disease; Visit Provider Internal Medicine Cardiovascular Disease
DX: I25.10 Atherosclerotic heart disease of native coronary artery without angina pectoris (principal); I35.0 Nonrheumatic aortic (valve) stenosis; I10 Essential (primary) hypertension; E78.5 Hyperlipidemia, unspecified; Z95.5 Presence of coronary angioplasty implant and graft; Z95.2 Presence of prosthetic heart valve
CPT/HCPCS: 93798

== ENCOUNTER 2019-11-08 08:00 | Outpatient (RCR) | payer OTHER, SELFPAY ==
[2019-10-04 15:36] VITALS: BMI 21.9
--- NOTE | 2019-10-25 08:19 | CR.ITP_ITS ---
Diagnosis - General Information Admitting Diagnosis: PCI W/CORONARY STENTING Personal Learning Style:: Audio/Visual, Written Barriers to Learning: No Barriers Stage of change r/t lifestyle modifications:: Action Gave educational material for:: Treating Heart Disease, Emotions & Heart Disease, Stress Management & Relaxation, Sleep Disorders & Heart Disease, How The Heart Works, What it means to have Heart Disease, How Coronary Artery Disease is Diagnosed, Heart Procedures, What Heart Medications Do, Risk Factors & Modifications, Living an Active Life, Nutrition - Education/Goals Individual Counseling: Initial Assessment: Abnormal Cholesterol Levels, High Blood Pressure Cardiac Rehabilitation Goals: 1. Maintain the individual as the primary focus of care. 2. To improve the patient's quality of life. 3. Identification of cardiac risk factors and provide cardiac risk factor management. 4. Enhance the psychosocial status of the patient. 5. Reconditioning enough to allow the patient to resume customary activities. 6. Control symptoms of cardiac disease Personal Goals: Initial Assessment: Improve muscle strength and endurance, Control risk factors (learn risk factor modification) Scale for measuring improvement of personal goals: Enter appropriate number in Comments. 2 = Unchanged. 3 = Slightly Better. 4 = Moderate Improvement. 5 = Met my Goal Exercise - 30-day Assessment - Visit Date of Eval: 10/25/19 Session #:: 12 - Physician Prescribed Exercise Modalities: Treadmill, Rower, Airdyne, NuStep Frequency: 3x/week for 12 weeks [36 sessions] Intensity: 60-80% of age predicted maximum heart rate reserve Current METSs:: 6 INCREASE FROM 3.5 Target Heart Rate:: 102-133 Current RPE:: 11-12 Maximum Excercise HR:: 127 Resting Blood Pressure: 126/84 Maximum Exercise Blood Pressure: 156/64 EKG Type: NSR TO SINUS TACHYCARDIA NO ECTOPY. Current Physical Activity or Exercising minutes: DAILY ACTIVE - Outcomes & Goals Goals:: Verbalizes understanding of THR, RPE & goal METS by session 6, Documents in home exercise log/reports 30 min aerobic 5 day/wk by DC, Demonstrates accurate pulse taking by DC - Intervention & Plan Exercise Program Goals: Instruct on personal THR & RPE, Instruct on MET level & personal MET goal, Show patient to take own pulse /validate performance until accurate, Instruct on home exercise - 30-day Reassessments 30 day Reassessments:: Progressing - Physical Activity Home Exercise Physical Activity - Home Exercise: Safe Exercise, Warm-up, Self-monitoring, Cool-Down, Home Exercise > 30 min Daily, Sitting Time <3 hours/daily - Outcomes & Goals Outcomes/Goals: Demonstrates correct Warm-up/exercise Cool-Down (S3) if = 2.5 METs, Verbalizes symptoms of exercise intolerance by Session 3 (S3), Demonstrate safe equipment use (S3) & follows exercise prescrition (6) - Intervention & Plan Plan/Intervention: Instruct warm-up & cool-down if exercising at > 2 METs, Instruct on symptoms of exercise intolerance & actions to take, Instruct & monitor on saf, Assess intial functional capacity & safety risk - 30-day Reassessments 30 day Reassessments:: Progressing Nutrition - 30-Day Assessment - Program Goals Nutrition Program Goals: LDL <100 optimal. 100 - 129 Near optimal. 130 - 159 Borderline High. 160 - 189 High. Total Cholesterol <200 desirable. 200 - 239 Borderline High. >/= 240 High. HDL < 40 Low >/=60 High. Triglycerides <150 desirable. <199 optimal. VlDL 5 - 40. HgbA1C <7%. BMI <25 Patient has diagnosis of Hyperlipidemia (ICD E78)?: Yes - Visit Date of Assessment:: 10/25/19 Session #:: 12 - Cholesterol/Lipids Triglycerides (mg/dL): 76 - 07/28/2019 Total Cholesterol (mg/dL): 214 LDL Cholesterol (mg/dL): 143 HDL Cholesterol (mg/dL): 56 Determine presence & major risk factors that modify LDL goal: Family history of premature CHD in Male < 55 years: female <65 yearsFa, Age men > 45 years; women >/= 55 years Outcomes/Goals: Pt IDs own risk factors & lifestyle modifications by Session 10, Verbalizes symptoms of angina & response by session 3., Pt independently manages Intervention/Plan: Instruct on personal lipid levels & lipid goals/NCEP guidelines, Instruct on cholesterol Referral to dietitian:: No - PATIENT DECLINED 30-day Reassessments:: Progressing - Diabetes (Other Core Measures) Diabetes Type: Not Applicable - Weight Mgt (Other Care) Not Applicable: Yes Height: 5 ft 4 in Weight:: 126 lb 8 oz BMI: 21.7 Diagnosis Overweight/Obesity BMI> 30% ICD-10 E66: No Diagnosis High BMI/Morbid Obesity BMI> 35% ICD-10 Z68: No Outcomes/Goals: Pt sets, maintains & shows weight loss goal & trend during rehab Intervention/Plan: Instruct on ideal BMI & set weight loss goal w/patient, Assist pt to ID & incorporate diet changes for weight loss by S9 - Healthy Eating Habits Will attend diet classes:: Yes Outcomes/Goals:: Consume diet rich in vegs,fruits,whole grain/high fiber,fish,lean meat, Limit sat/trans fats,cholesterol & added salts & sugars Intervention/Plan:: Assess current eating habits 30-day Reassessments:: Progressing - Education Gave educational materials for:: Healthy eating Medical- 30-Day Assessment - Visit Date of Eval: 10/25/19 - Medication Compliance Preventative Medication(s):: Aspirin, Clopidogrel/P2Y12 inhibit, Statin/lipid, Beta papi H/O mental health issues: depression, anxiety, or addiction?: No Doesn?t believe in the benefits of treatment?: No Believes medications are unnecessary or harmful?: No Has a concern about medication side effects?: No Expresses concern over the cost of medications?: No Outcomes/Goals: Verbalizes medications,desired effect & common side effects @ DC, Pt self-reports following medication regimen, Keeps card in wallet w/medications listed by DC Interventions/plans: Instruct on medication effects & side effects, Review medication list w/patient every two weeks, Instruct importance of taking meds as ordered & assist problem solving 30-day Reassessments:: Progressing - Tobacco Use Tobacco Use: Non-smoker - Hypertension Hypertension Diagnosis:: Hypertension ICD-10 I10 Resting Blood Pressure:: 126/84 [place] [employer] Hypertension Guidelines: [place] [employer] Hypertension Guidelines. Normal BP Less than 120/80. Elevated BP 120/80. Hypertension Stage 1: BP 130-139/80-89. Hypertesnion Stage 2: BP 140 or higher/90 or higher. Hypertension Crisis: BP higher than 180/120 Peak Exercise Blood Pressure:: 156/64 Outcomes/Goals: Able to verbalize/achieve optimal blood pressure <130/80, Incorporates diet changes & exercise for blood pressure control by DC Interventions/plan: Instruct on optimal blood pressure, hypertension & medications, Instruct on effects of sodium, alcohol, stress, exercise &hypertension 30 day Reassessments:: Progressing - Tobacco Cessation Referral Smoking Cessation Referral:: No Education Schedule Given:: Yes Psychosocial - 30-Day Assess - VIsit Date of Eval: 10/25/19 Session #:: 12 Not Applicable: Yes History of previous Mental disease:: No - Target Goals Target Goals: Assess presence or absence of depression. Using a valid screening tool, maximizes coping skills. Positive support system - Psychosocial Test Tool Used:: Sunny Espitia QOL Cardiac, PHQ-9 Questionnaire phq-9 Severity: Severity. 1-4 Minimal Depression. 5-9 Mild Depression. 10-14 Moderate Depression. 15-19 Moderately Sever Depression. 20-27 Severe Depression. Rule: - Referral to Behavioral Health PS - Interventions: Yes Attend Stress Management Classes, No Referral to Behavioral Health if PHQ-9 score >9:, No Referral to [facility], No Referral to Physician if PHQ-9 if score is 5-9: - Outcomes/Goals: See list Psychosocial Outcomes/Goals:: ID's personal stressors & 2 strategies to manage stress by discharge - Intervention/Plan: See List Interventions/Plan:: Assess stressors,coping strategies & signs of derpression on admission, Instruct/assist pt to develop coping & personal stress Mgt strategies, Instruct patient to recognize signs & symptoms of depression, Instruct patient to recog - 30-day Reassessments: 30 day Reassessments:: Progressing Patient Health Questionnaire 30-Day Re-eval Assessment 1. Little interest or pleasure in doing things: Not at all 2. Feeling down, depressed, or hopeless: Several days 3. Trouble falling or staying asleep, or sleeping too much: Not at all 4. Feeling tired or having little energy: Not at all 5. Poor appetite or overeating: Not at all 6. Feeling bad about yourself -- or that you are a failure or have let yourself or your family down: Not at all 7. Trouble concentrating on things, such as reading the newspaper or watching television: Not at all 8. Moving or speaking so slowly that other people could have noticed. Or the opposite - being so fidgety or restless that you have been moving around a lot more than usual: Not at all 9. Thoughts that you would be better off , or of hurting yourself in some way: Not at all How difficult have these problems made it for you to do your work, take care of things at home, or get along with other people?: Not difficult at all Total Score: 1 Self-Efficacy 30-Day Re-eval Assessment We would like to know how confident you are in doing certain activities. Please select your confidence level for:: Select your confidence level for the following using the scale 1-10 where 1 is not at all confident and 10 is totally confident. Your score is the average of all 6 responses. Fatigue: How confident are you that you can keep the fatigue caused by your disease from interfering with the things you want to do? Select Number: 10 Physical Discomfort or Pain: How confident are you that you can keep the physical discomfort or pain of your disease from interfering with the things you want to do? Select Number: 10 Emotional Distress: How confident are you that you can keep the emotional distress caused by your disease from interfering with the things you want to do? Select Number: 10 Other Symptoms or Health Problems: How confident are you that you can keep other symptoms or health problems from interfering with the things you want to do? Select Number: 10 Different Tasks and Activities: How confident are you that you can do the different tasks and activities needed to manage your health condition so as to reduce your need to see a doctor? Select Number: 10 Medication: How confident are you that you can do things other than just taking medication to reduce how much your illness affects your everyday life? Select Number: 10 Total Score:: 10
[2019-10-25 08:27] VITALS: BP 126/84; BP 156/64; BMI 21.7
== END 2019-11-09 23:59 ==
LOC: CR 08:00
PROVIDERS: Family Provider Family Medicine; PCP Family Medicine; Referring Provider Internal Medicine Cardiovascular Disease; Visit Provider Internal Medicine Cardiovascular Disease
DX: I25.10 Atherosclerotic heart disease of native coronary artery without angina pectoris (principal); I35.0 Nonrheumatic aortic (valve) stenosis; I10 Essential (primary) hypertension; E78.5 Hyperlipidemia, unspecified; Z95.5 Presence of coronary angioplasty implant and graft; Z95.2 Presence of prosthetic heart valve
CPT/HCPCS: 93798

== ENCOUNTER → 2019-11-11 20:01 | Outpatient (CLI) | payer OTHER, SELFPAY ==
[2019-10-04 15:36] VITALS: BMI 21.9
[2019-10-25 08:27] VITALS: BMI 21.7
== END ==
PROVIDERS: PCP Family Medicine; Referring Provider Family Medicine; Visit Provider Family Medicine
DX: G47.10 Hypersomnia, unspecified (principal)
CPT/HCPCS: 95810

== ENCOUNTER 2019-12-09 08:00 | Outpatient (RCR) | payer OTHER, SELFPAY ==
[2019-10-04 15:36] VITALS: BMI 21.9
[2019-10-25 08:27] VITALS: BMI 21.7
[2019-11-10 00:51] VITALS: BP 126/84; BP 156/64
--- NOTE | 2019-11-15 08:57 | CR.ITP_ITS ---
Diagnosis - General Information Admitting Diagnosis: PCI w/coronary stenting Personal Learning Style:: Audio/Visual, Written Barriers to Learning: No Barriers Stage of change r/t lifestyle modifications:: Action Gave educational material for:: Treating Heart Disease, Emotions & Heart Disease, Stress Management & Relaxation, Sleep Disorders & Heart Disease, How The Heart Works, What it means to have Heart Disease, How Coronary Artery Disease is Diagnosed, Heart Procedures, What Heart Medications Do, Risk Factors & Modifications, Living an Active Life, Nutrition - Education/Goals Individual Counseling: Initial Assessment: Abnormal Cholesterol Levels - HTN, High Blood Pressure - HLD Cardiac Rehabilitation Goals: 1. Maintain the individual as the primary focus of care. 2. To improve the patient's quality of life. 3. Identification of cardiac risk factors and provide cardiac risk factor management. 4. Enhance the psychosocial status of the patient. 5. Reconditioning enough to allow the patient to resume customary activities. 6. Control symptoms of cardiac disease Personal Goals: Initial Assessment: Improve muscle strength and endurance, Control risk factors (learn risk factor modification) Scale for measuring improvement of personal goals: Enter appropriate number in Comments. 2 = Unchanged. 3 = Slightly Better. 4 = Moderate Improvement. 5 = Met my Goal - Diagnosis & Disease Process Outcomes/Goals: Pt IDs own risk factors & lifestyle modifications by Session 10, Verbalizes symptoms of angina & response by session 3., Pt independently manages Plan/Interventions: Assist Pt to ID & engage in lifestyle modification to reduce CVD risk, Instruct on individual risk factors, Review symptoms of angina & emergency actions, Review secondary diagnosis & identify educational needs. 30 day Reassessments:: Progressing 30 day Reassessments:: Progressing - Safety Referral to Physical Therapy: No Referral to [facility] Case Management: No Fall Risk Assessed:: Yes Assistive Devices:: None Exercise - 60-day Assessment - Visit Date of Eval: 11/15/19 Session #:: 20 - Physician Prescribed Exercise Modalities: Treadmill, Rower, Airdyne Frequency: 3x/week for 12 weeks [36 sessions] Intensity: 60-80% of age predicted maximum heart rate reserve Current METSs:: 6.5 Target Heart Rate:: 102-133 Current RPE:: 13-14 Maximum Excercise HR:: 122 Resting Blood Pressure: 128/80 Maximum Exercise Blood Pressure: 138/62 EKG Type: NSR with rare PVCs, PACs and burst of PAT Current Physical Activity or Exercising minutes: Very active lifestyle! Regular daily exercise - Outcomes & Goals Goals:: Verbalizes understanding of THR, RPE & goal METS by session 6, Documents in home exercise log/reports 30 min aerobic 5 day/wk by DC, Demonstrates accurate pulse taking by DC - Intervention & Plan Exercise Program Goals: Instruct on personal THR & RPE, Instruct on MET level & personal MET goal, Show patient to take own pulse /validate performance until accurate, Instruct on home exercise - 30-day Reassessments 30 day Reassessments:: Met - Physical Activity Home Exercise Physical Activity - Home Exercise: Safe Exercise, Warm-up, Self-monitoring, Cool-Down, Home Exercise > 30 min Daily, Sitting Time <3 hours/daily - Outcomes & Goals Outcomes/Goals: Demonstrates correct Warm-up/exercise Cool-Down (S3) if = 2.5 METs, Verbalizes symptoms of exercise intolerance by Session 3 (S3), Demonstrate safe equipment use (S3) & follows exercise prescrition (6), Other: See below - Intervention & Plan Plan/Intervention: Instruct warm-up & cool-down if exercising at > 2 METs, Instruct on symptoms of exercise intolerance & actions to take, Instruct & monitor on saf, Assess intial functional capacity & safety risk - 30-day Reassessments 30 day Reassessments:: Met Nutrition - 60-Day Assessment - Program Goals Nutrition Program Goals: LDL <100 optimal. 100 - 129 Near optimal. 130 - 159 Borderline High. 160 - 189 High. Total Cholesterol <200 desirable. 200 - 239 Borderline High. >/= 240 High. HDL < 40 Low >/=60 High. Triglycerides <150 desirable. <199 optimal. VlDL 5 - 40. HgbA1C <7%. BMI <25 Patient has diagnosis of Hyperlipidemia (ICD E78)?: Yes - Visit Date of Assessment:: 11/15/19 Session #:: 20 - Cholesterol/Lipids Triglycerides (mg/dL): 76 - 07/28/2019 Total Cholesterol (mg/dL): 214 LDL Cholesterol (mg/dL): 143 HDL Cholesterol (mg/dL): 56 Lipid Medication: yes Determine presence & major risk factors that modify LDL goal: Hypertension or hypertensive medication, Age men > 45 years; women >/= 55 years Outcomes/Goals: Pt IDs own risk factors & lifestyle modifications by Session 10, Verbalizes symptoms of angina & response by session 3., Pt independently manages Intervention/Plan: Instruct on personal lipid levels & lipid goals/NCEP guidelines, Instruct on cholesterol Referral to dietitian:: No 30-day Reassessments:: Progressing - Diabetes (Other Core Measures) Diabetes Type: Not Applicable - Weight Mgt (Other Care) Not Applicable: Yes Height: 5 ft 4 in Weight:: 126 lb 8 oz BMI: 21.7 Diagnosis Overweight/Obesity BMI> 30% ICD-10 E66: No Diagnosis High BMI/Morbid Obesity BMI> 35% ICD-10 Z68: No Outcomes/Goals: Pt sets, maintains & shows weight loss goal & trend during rehab Intervention/Plan: Instruct on ideal BMI & set weight loss goal w/patient 30 day Reassessments:: Met - Healthy Eating Habits Will attend diet classes:: Yes Outcomes/Goals:: Consume diet rich in vegs,fruits,whole grain/high fiber,fish,lean meat, Limit sat/trans fats,cholesterol & added salts & sugars Intervention/Plan:: Assess current eating habits 30-day Reassessments:: Progressing - Education Gave educational materials for:: Healthy eating Medical- 60-Day Assessment - Visit Date of Eval: 11/15/19 Session #:: 20 - Medication Compliance Preventative Medication(s):: Aspirin, Clopidogrel/P2Y12 inhibit, Statin/lipid H/O mental health issues: depression, anxiety, or addiction?: No Doesn?t believe in the benefits of treatment?: No Believes medications are unnecessary or harmful?: No Has a concern about medication side effects?: No Expresses concern over the cost of medications?: No Outcomes/Goals: Verbalizes medications,desired effect & common side effects @ DC, Pt self-reports following medication regimen, Keeps card in wallet w/medications listed by DC Interventions/plans: Instruct on medication effects & side effects, Review medication list w/patient every two weeks, Instruct importance of taking meds as ordered & assist problem solving 30-day Reassessments:: Progressing - Tobacco Use Tobacco Use: Non-smoker - Hypertension Resting Blood Pressure:: 128/80 [place] [employer] Hypertension Guidelines: [place] [employer] Hypertension Guidelines. Normal BP Less than 120/80. Elevated BP 120/80. Hypertension Stage 1: BP 130-139/80-89. Hypertesnion Stage 2: BP 140 or higher/90 or higher. Hypertension Crisis: BP higher than 180/120 Peak Exercise Blood Pressure:: 138/62 Outcomes/Goals: Able to verbalize/achieve optimal blood pressure <130/80, Incorporates diet changes & exercise for blood pressure control by DC Interventions/plan: Instruct on optimal blood pressure, hypertension & medications, Instruct on effects of sodium, alcohol, stress, exercise &hypertension 30 day Reassessments:: Progressing - Tobacco Cessation Referral Smoking Cessation Referral:: No Individual Education/Counseling:: No Education Schedule Given:: Yes Psychosocial - 60-Day Assess - VIsit Date of Eval: 11/15/19 Session #:: 20 Not Applicable: Yes History of previous Mental disease:: No - Target Goals Target Goals: Assess presence or absence of depression. Using a valid screening tool, maximizes coping skills. Positive support system - Psychosocial Test Tool Used:: Sunny Espitia QOL Cardiac, PHQ-9 Questionnaire phq-9 Severity: Severity. 1-4 Minimal Depression. 5-9 Mild Depression. 10-14 Moderate Depression. 15-19 Moderately Sever Depression. 20-27 Severe Depression. Rule: - Referral to Behavioral Health PS - Interventions: Yes Attend Stress Management Classes, No Referral to Behavioral Health if PHQ-9 score >9:, No Referral to [facility], No Referral to Physician if PHQ-9 if score is 5-9: - Outcomes/Goals: See list Psychosocial Outcomes/Goals:: ID's personal stressors & 2 strategies to manage stress by discharge - Intervention/Plan: See List Interventions/Plan:: Assess stressors,coping strategies & signs of derpression on admission, Instruct/assist pt to develop coping & personal stress Mgt strategies, Instruct patient to recognize signs & symptoms of depression, Instruct patient to recog - 30-day Reassessments: 30 day Reassessments:: Progressing Patient Health Questionnaire 60-Day Re-eval Assessment 1. Little interest or pleasure in doing things: Not at all 2. Feeling down, depressed, or hopeless: Not at all 3. Trouble falling or staying asleep, or sleeping too much: Not at all 4. Feeling tired or having little energy: Not at all 5. Poor appetite or overeating: Not at all 6. Feeling bad about yourself -- or that you are a failure or have let yourself or your family down: Not at all 7. Trouble concentrating on things, such as reading the newspaper or watching television: Not at all 8. Moving or speaking so slowly that other people could have noticed. Or the opposite - being so fidgety or restless that you have been moving around a lot more than usual: Not at all 9. Thoughts that you would be better off , or of hurting yourself in some way: Not at all Total Score: 0 Self-Efficacy 60-Day Re-eval Assessment We would like to know how confident you are in doing certain activities. Please select your confidence level for:: Select your confidence level for the following using the scale 1-10 where 1 is not at all confident and 10 is totally confident. Your score is the average of all 6 responses. Fatigue: How confident are you that you can keep the fatigue caused by your disease from interfering with the things you want to do? Select Number: 10 Physical Discomfort or Pain: How confident are you that you can keep the physical discomfort or pain of your disease from interfering with the things you want to do? Select Number: 10 Emotional Distress: How confident are you that you can keep the emotional distress caused by your disease from interfering with the things you want to do? Select Number: 10 Other Symptoms or Health Problems: How confident are you that you can keep other symptoms or health problems from interfering with the things you want to do? Select Number: 10 Different Tasks and Activities: How confident are you that you can do the different tasks and activities needed to manage your health condition so as to reduce your need to see a doctor? Select Number: 10 Medication: How confident are you that you can do things other than just taking medication to reduce how much your illness affects your everyday life? Select Number: 10 Total Score:: 10
[2019-11-15 09:11] VITALS: BP 128/80; BP 138/62; BMI 21.7
== END 2019-12-10 23:59 ==
LOC: CR 08:00
PROVIDERS: Family Provider Family Medicine; PCP Family Medicine; Referring Provider Internal Medicine Cardiovascular Disease; Visit Provider Internal Medicine Cardiovascular Disease
DX: I25.10 Atherosclerotic heart disease of native coronary artery without angina pectoris (principal); I35.0 Nonrheumatic aortic (valve) stenosis; I10 Essential (primary) hypertension; E78.5 Hyperlipidemia, unspecified; Z95.5 Presence of coronary angioplasty implant and graft; Z95.2 Presence of prosthetic heart valve
CPT/HCPCS: 93798

== ENCOUNTER 2019-12-11 09:21 | Outpatient (RCR) | payer OTHER, SELFPAY ==
[2019-11-15 09:11] VITALS: BMI 21.7
[2019-12-05 08:55] VITALS: BMI 21.6
[2019-12-11 00:40] VITALS: BP 128/80; BP 138/62
--- NOTE | 2019-12-13 06:28 | PCM.CR.ITP ---
Exercise - Initial Assessment - Visit Date of Eval: 12/13/19 - Patient CR suspended due to COVID-19 and Cardiac Rehab closing for December 2019.
== END 2020-01-09 23:59 ==
LOC: CR 09:21
PROVIDERS: Family Provider Family Medicine; PCP Family Medicine; Referring Provider Internal Medicine Cardiovascular Disease; Visit Provider Internal Medicine Cardiovascular Disease
DX: I25.10 Atherosclerotic heart disease of native coronary artery without angina pectoris (principal); I35.0 Nonrheumatic aortic (valve) stenosis; I10 Essential (primary) hypertension; E78.5 Hyperlipidemia, unspecified; Z95.5 Presence of coronary angioplasty implant and graft; Z95.2 Presence of prosthetic heart valve
CPT/HCPCS: 93798

== ENCOUNTER → 2019-12-26 11:47 | Outpatient (CLI) | payer OTHER, SELFPAY ==
[2019-11-15 09:11] VITALS: BMI 21.7
[2019-12-05 08:55] VITALS: BMI 21.6
== END ==
PROVIDERS: PCP Family Medicine; Referring Provider Nurse Practitioner Acute Care; Visit Provider Nurse Practitioner Acute Care
DX: Z45.89 Encounter for adjustment and management of other implanted devices (principal)

== ENCOUNTER → 2019-12-27 11:42 | Outpatient (CLI) | payer OTHER, SELFPAY ==
[2019-11-15 09:11] VITALS: BMI 21.7
[2019-12-05 08:55] VITALS: BMI 21.6
== END ==
PROVIDERS: PCP Family Medicine; Referring Provider Nurse Practitioner Acute Care; Visit Provider Nurse Practitioner Acute Care
DX: Z00.00 Encounter for general adult medical examination without abnormal findings (principal)

== ENCOUNTER 2020-02-07 08:00 | Outpatient (RCR) | payer OTHER, SELFPAY ==
[2019-11-15 09:11] VITALS: BMI 21.7
[2020-01-01 09:14] VITALS: BMI 21.4
[2020-01-10 00:14] VITALS: BP 128/80; BP 138/62
--- NOTE | 2020-01-10 09:04 | CR.ITP_ITS ---
Diagnosis - General Information Admitting Diagnosis: PCI with stent Personal Learning Style:: Audio/Visual, Demonstration, Group, Individual Preference, Written Stage of change r/t lifestyle modifications:: Action Gave educational material for:: Treating Heart Disease, Emotions & Heart Disease, Stress Management & Relaxation, Sleep Disorders & Heart Disease, How The Heart Works, What it means to have Heart Disease, How Coronary Artery Disease is Diagnosed, Heart Procedures, What Heart Medications Do, Risk Factors & Modifications, Living an Active Life, Nutrition - Education/Goals Cardiac Rehabilitation Goals: 1. Maintain the individual as the primary focus of care. 2. To improve the patient's quality of life. 3. Identification of cardiac risk factors and provide cardiac risk factor management. 4. Enhance the psychosocial status of the patient. 5. Reconditioning enough to allow the patient to resume customary activities. 6. Control symptoms of cardiac disease Scale for measuring improvement of personal goals: Enter appropriate number in Comments. 2 = Unchanged. 3 = Slightly Better. 4 = Moderate Improvement. 5 = Met my Goal - Diagnosis & Disease Process 30 day Reassessments:: Progressing 30 day Reassessments:: Progressing 30 day Reassessments:: Progressing 30 day Reassessments:: Progressing - Safety Fall Risk Assessed:: Yes Assistive Devices:: None Exercise - 90-day Assessment - Visit Date of Eval: 01/10/20 Session #:: 26 Comments:: Pt was on hold for COVID 19 precaution. Pt is now resuming rehab. - Physician Prescribed Exercise Modalities: Treadmill, Rower, Airdyne Frequency: 3x/week for 12 weeks [36 sessions] Intensity: 60-80% of age predicted maximum heart rate reserve Current METSs:: 7.1 Target Heart Rate:: 102-133 Current RPE:: 12-14 Maximum Excercise HR:: 119 Resting Blood Pressure: 100/48 Maximum Exercise Blood Pressure: 142/56 EKG Type: sinus yuni with 1st degree av block - Outcomes & Goals Goals:: Verbalizes understanding of THR, RPE & goal METS by session 6, Documents in home exercise log/reports 30 min aerobic 5 day/wk by DC, Demonstrates accurate pulse taking by DC, Other additional outcome/goals: see below - Intervention & Plan Exercise Program Goals: Instruct on personal THR & RPE, Instruct on MET level & personal MET goal, Show patient to take own pulse /validate performance until accurate, Instruct on home exercise, Other additional plan/int - 30-day Reassessments 30 day Reassessments:: Progressing - Physical Activity Home Exercise Physical Activity - Home Exercise: Safe Exercise, Warm-up, Self-monitoring, Cool-Down, Home Exercise > 30 min Daily, Sitting Time <3 hours/daily - Outcomes & Goals Outcomes/Goals: Demonstrates correct Warm-up/exercise Cool-Down (S3) if = 2.5 METs, Verbalizes symptoms of exercise intolerance by Session 3 (S3), Demonstrate safe equipment use (S3) & follows exercise prescrition (6), Other: See below - Intervention & Plan Plan/Intervention: Instruct warm-up & cool-down if exercising at > 2 METs, Instruct on symptoms of exercise intolerance & actions to take, Instruct & monitor on saf, Assess intial functional capacity & safety risk, Other See below - 30-day Reassessments 30 day Reassessments:: Progressing Nutrition - 90-Day Assessment - Program Goals Nutrition Program Goals: LDL <100 optimal. 100 - 129 Near optimal. 130 - 159 Borderline High. 160 - 189 High. Total Cholesterol <200 desirable. 200 - 239 Borderline High. >/= 240 High. HDL < 40 Low >/=60 High. Triglycerides <150 desirable. <199 optimal. VlDL 5 - 40. HgbA1C <7%. BMI <25 - Visit Date of Assessment:: 01/10/20 Session #:: 26 - Cholesterol/Lipids Determine presence & major risk factors that modify LDL goal: Hypertension or hypertensive medication, Low HDL cholesterol <40 mg/dL*, Family history of premature CHD in Male < 55 years: female <65 yearsFa, Age men > 45 years; women >/= 55 years Outcomes/Goals: Pt IDs own risk factors & lifestyle modifications by Session 10, Verbalizes symptoms of angina & response by session 3., Pt independently manages, Other Additional Outcomes/Goals: Intervention/Plan: Advocate for lipid panel cholesterol medication if applicable, Instruct on personal lipid levels & lipid goals/NCEP guidelines, Instruct on cholesterol, Other additional plan/int Referral to dietitian:: No 30-day Reassessments:: Progressing - Diabetes (Other Core Measures) Diabetes Type: Not Applicable - Weight Mgt (Other Care) Height: 5 ft 4 in Weight:: 56.699 kg BMI: 21.4 Diagnosis Overweight/Obesity BMI> 30% ICD-10 E66: No Diagnosis High BMI/Morbid Obesity BMI> 35% ICD-10 Z68: No Outcomes/Goals: Pt sets, maintains & shows weight loss goal & trend during rehab, Other additional outcomes/goals Intervention/Plan: Instruct on ideal BMI & set weight loss goal w/patient, Assist pt to ID & incorporate diet changes for weight loss by S9, Refer to Structured Weight Loss program as appropriate, Encourage goal of using 250- 300dcal per session for weight loss, Other additional plan/interventions 30 day Reassessments:: Progressing - Healthy Eating Habits Will attend diet classes:: Yes Outcomes/Goals:: Consume diet rich in vegs,fruits,whole grain/high fiber,fish,le an meat, Limit sat/trans fats,cholesterol & added salts & sugars, Other additional outcome/goals: Intervention/Plan:: Assess current eating habits, Other Additional plan/inter ventions 30-day Reassessments:: Progressing Medical- 90-Day Assessment - Visit Date of Eval: 01/10/20 Session #:: 26 - Medication Compliance Preventative Medication(s):: Aspirin, Clopidogrel/P2Y12 inhibit, Statin/lipid H/O mental health issues: depression, anxiety, or addiction?: No Believes medications are unnecessary or harmful?: No Has a concern about medication side effects?: No Expresses concern over the cost of medications?: No Outcomes/Goals: Verbalizes medications,desired effect & common side effects @ DC, Pt self-reports following medication regimen, Keeps card in wallet w/medications listed by DC, Other additional outcome/goals: Interventions/plans: Instruct on medication effects & side effects, Review medication list w/patient every two weeks, Instruct importance of taking meds as ordered & assist problem solving, Other additional 30-day Reassessments:: Progressing - Tobacco Use Tobacco Use: Non-smoker 30-day Reassessments:: Progressing - Hypertension Resting Blood Pressure:: 100/48 [employer] Hypertension Guidelines: [employer] Hypertension Guidelines. Normal BP Less than 120/80. Elevated BP 120/80. Hypertension Stage 1: BP 130-139/80-89. Hypertesnion Stage 2: BP 140 or higher/90 or higher. Hypertension Crisis: BP higher than 180/120 Peak Exercise Blood Pressure:: 142/56 Outcomes/Goals: Able to verbalize/achieve optimal blood pressure <130/80, Incorporates diet changes & exercise for blood pressure control by DC, Other additional outcomes/goals Interventions/plan: Instruct on optimal blood pressure, hypertension & medications, Instruct on effects of sodium, alcohol, stress, exercise &hyperte nsion, Other additional plan/interventions 30 day Reassessments:: Progressing - Tobacco Cessation Referral Smoking Cessation Referral:: No Individual Education/Counseling:: No Education Schedule Given:: Yes Psychosocial - 90-Day Assess - VIsit Date of Eval: 01/10/20 Session #:: 26 Not Applicable: Yes - Target Goals Target Goals: Assess presence or absence of depression. Using a valid screening tool, maximizes coping skills. Positive support system - Psychosocial Test Tool Used:: [place] Level QOL Cardiac, PHQ-9 Questionnaire phq-9 Severity: Severity. 1-4 Minimal Depression. 5-9 Mild Depression. 10-14 Moderate Depression. 15-19 Moderately Sever Depression. 20-27 Severe Depression. Rule: - Referral to Behavioral Health PS - Interventions: Yes Attend Stress Management Classes, No Referral to Behavioral Health if PHQ-9 score >9:, No Referral to [facility], No Referral to Physician if PHQ-9 if score is 5-9: - Outcomes/Goals: See list Psychosocial Outcomes/Goals:: ID's personal stressors & 2 strategies to manage stress by discharge, Other Additional outcome/goals: - Intervention/Plan: See List Interventions/Plan:: Assess stressors,coping strategies & signs of derpression on admission, Instruct/assist pt to develop coping & personal stress Mgt strategies, Refer to Behavioral Health if appropriate, Refer to Physician if appropriate, Instruct patient to recognize signs & symptoms of depression, Instruct patient to recog, Other additional plan/intervention - 30-day Reassessments: 30 day Reassessments:: Progressing Patient Health Questionnaire 90-Day Re-eval Assessment 1. Little interest or pleasure in doing things: Not at all 2. Feeling down, depressed, or hopeless: Not at all 3. Trouble falling or staying asleep, or sleeping too much: Not at all 4. Feeling tired or having little energy: Not at all 5. Poor appetite or overeating: Not at all 6. Feeling bad about yourself -- or that you are a failure or have let yourself or your family down: Not at all 7. Trouble concentrating on things, such as reading the newspaper or watching television: Not at all 8. Moving or speaking so slowly that other people could have noticed. Or the opposite - being so fidgety or restless that you have been moving around a lot more than usual: Not at all 9. Thoughts that you would be better off , or of hurting yourself in some way: Not at all How difficult have these problems made it for you to do your work, take care of things at home, or get along with other people?: Not difficult at all Total Score: 0 Self-Efficacy 90-Day Re-eval Assessment We would like to know how confident you are in doing certain activities. Please select your confidence level for:: Select your confidence level for the following using the scale 1-10 where 1 is not at all confident and 10 is totally confident. Your score is the average of all 6 responses. Fatigue: How confident are you that you can keep the fatigue caused by your disease from interfering with the things you want to do? Select Number: 10 Physical Discomfort or Pain: How confident are you that you can keep the physical discomfort or pain of your disease from interfering with the things you want to do? Select Number: 10 Emotional Distress: How confident are you that you can keep the emotional distress caused by your disease from interfering with the things you want to do? Select Number: 10 Other Symptoms or Health Problems: How confident are you that you can keep other symptoms or health problems from interfering with the things you want to do? Select Number: 10 Different Tasks and Activities: How confident are you that you can do the different tasks and activities needed to manage your health condition so as to reduce your need to see a doctor? Select Number: 10 Medication: How confident are you that you can do things other than just taking medication to reduce how much your illness affects your everyday life? Select Number: 10 Total Score:: 10
[2020-01-10 09:13] VITALS: BP 100/48; BP 142/56; BMI 21.4
== END 2020-02-09 23:59 ==
LOC: CR 08:00
PROVIDERS: Family Provider Family Medicine; PCP Family Medicine; Referring Provider Internal Medicine Cardiovascular Disease; Visit Provider Internal Medicine Cardiovascular Disease
DX: I25.10 Atherosclerotic heart disease of native coronary artery without angina pectoris (principal); I35.0 Nonrheumatic aortic (valve) stenosis; I10 Essential (primary) hypertension; E78.5 Hyperlipidemia, unspecified; Z95.5 Presence of coronary angioplasty implant and graft; Z95.2 Presence of prosthetic heart valve
CPT/HCPCS: 93798

== ENCOUNTER 2020-02-10 06:18 | Outpatient (RCR) | payer OTHER, SELFPAY ==
[2020-01-01 09:14] VITALS: BMI 21.4
[2020-01-10 09:13] VITALS: BMI 21.4
[2020-02-10 00:25] VITALS: BP 100/48; BP 142/56
== END 2020-03-10 23:59 ==
LOC: CR 06:18
PROVIDERS: Family Provider Family Medicine; PCP Family Medicine; Referring Provider Internal Medicine Cardiovascular Disease; Visit Provider Internal Medicine Cardiovascular Disease
DX: I25.10 Atherosclerotic heart disease of native coronary artery without angina pectoris (principal); I35.0 Nonrheumatic aortic (valve) stenosis; I10 Essential (primary) hypertension; E78.5 Hyperlipidemia, unspecified; Z95.2 Presence of prosthetic heart valve
CPT/HCPCS: 93798

== ENCOUNTER → 2020-06-18 11:00 | Outpatient (CLI) | payer OTHER, SELFPAY ==
[2020-01-10 09:13] VITALS: BMI 21.4
[2020-04-09 05:48] VITALS: BMI 21.9
== END ==
PROVIDERS: PCP Family Medicine; Referring Provider Nurse Practitioner Acute Care; Visit Provider Nurse Practitioner Acute Care
DX: G47.33 Obstructive sleep apnea (adult) (pediatric) (principal)
CPT/HCPCS: 98960; G0463

== ENCOUNTER → 2020-06-19 08:01 | Outpatient (CLI) | payer OTHER, SELFPAY ==
[2020-01-10 09:13] VITALS: BMI 21.4
[2020-04-09 05:48] VITALS: BMI 21.9
--- NOTE | 2020-06-19 08:03 | BI_ITS ---
MAMMOGRAPHY - BILATERAL SCREENING REASON FOR EXAM: Female, 64 years old. Routine annual screening examination. PERTINENT HISTORY: Mother with breast cancer. TECHNIQUE: Digital bilateral breast moni (3D mammographic acquisition) in the CC and MLO projections. 2-D mediolateral oblique (MLO) and craniocaudad (CC) views of both breasts were obtained. CAD: Full Field Digital Mammography with Computer Added Detection was performed. COMPARISON: Comparison is made with prior study dated 04/19/2019 and 12/20/2017. FINDINGS: Breast Composition: There are scattered areas of fibroglandular density. There are no dominant masses or suspicious calcifications. No other significant abnormalities are identified. There has been no significant change since the prior study. BI/SCREEN MAMM (CAD) W/MONI BILAT IMPRESSION: Stable bilateral screening mammogram. Yearly follow-up mammogram recommended. (A) ASSESSMENT CATEGORY: BIRADS Category 1: Negative. A letter regarding these results will be sent to the patient by the facility within 30 days. Approximately 10% of breast cancers are not detected by mammography. A normal mammogram should not delay biopsy of a clinically suspicious abnormality. [id number] Electronically Signed: Ruiz Bronson, at 13:03 EDT , Service support ,
== END ==
PROVIDERS: PCP Family Medicine; Referring Provider Family Medicine; Visit Provider Family Medicine
DX: Z12.31 Encounter for screening mammogram for malignant neoplasm of breast (principal)
CPT/HCPCS: 77063; 77067

== ENCOUNTER → 2020-09-30 07:58 | Outpatient (CLI) | payer OTHER, SELFPAY ==
[2020-01-10 09:13] VITALS: BMI 21.4
[2020-09-24 13:18] VITALS: BMI 22.1
[2020-09-30 10:08] LABS: AST(SGOT) 60 U/L (15-37); Alanine Aminotransfer ALT/SGPT 77 U/L (13-56); Albumin, Serum 3.9 g/dL (3.2-5.0); Alkaline Phosphatase 56 U/L (45-117); Bilirubin, Direct 0.22 mg/dL (0.00-0.30); Cholesterol 119 mg/dL (200); Globulin 3.8 g/dL (2.2-4.2); High Density Lipoprotein 52 mg/dL; Protein, Total 7.7 g/dL (6.4-8.2); Triglycerides 95 mg/dL; Very Low Density Lipoprotein 19 mg/dL (5-40)
== END ==
PROVIDERS: PCP Family Medicine; Referring Provider Internal Medicine Cardiovascular Disease; Visit Provider Internal Medicine Cardiovascular Disease
DX: E78.5 Hyperlipidemia, unspecified (principal)
CPT/HCPCS: 36415; 80061; 80076

== ENCOUNTER → 2020-10-12 06:58 | Outpatient (CLI) | payer OTHER, SELFPAY ==
[2020-01-10 09:13] VITALS: BMI 21.4
[2020-09-24 13:18] VITALS: BMI 22.1
--- NOTE | 2020-10-12 07:00 | ECHOD_ITS ---
Reason For Study: VALVE REPLACEMENT EVAL Procedure This was a 2D Doppler, Color Flow transthoracic echocardiogram. Exam performed in department. Left Ventricle Normal LV size. Mild concentric left ventricular hypertrophy. Left ventricular systolic function is normal. The estimated ejection fraction is 60 %. Normal diastology for age. No regional wall motion abnormalities noted. Right Ventricle Normal RV size. Normal systolic function. Atria Normal left atrium. Normal right atrium. Mitral Valve Normal mitral valve. Tricuspid Valve Normal tricuspid valve. Mild tricuspid valve insufficiency. Pulmonary artery systolic pressure is 20 mmHg. Aortic Valve Peak aortic valve gradient 41 mmHg. Mean aortic valve gradient 24 mmHg. Mild to moderate aortic stenosis. Calculated aortic valve area (continuity equation) is 1.0 cm2. Stable appearing bioprosthetic aortic valve apparatus. Pulmonic Valve Normal pulmonic valve. Great Vessels Normal aortic root. The pulmonary artery is normal size. Normal inferior vena cava. Pericardium/Pleural No pericardial effusion. MMode/2D Measurements & Calculations LVIDd: 3.9 cm IVSd: 1.2 cm LVOT diam: 2.0 cm LVIDs: 2.5 cm LVPWd: 1.2 cm LVOT area: 3.1 cm2 RVDd: 2.9 cm FS: 36.6 % LAV(MOD-bp): 56.9 ml LA A4 area: 19.1 cm2 LA dimension(2D): 3.2 cm LAV(MOD-bp) Indexed: 35.0 ml/m2 LAV(MOD-sp2): 55.8 ml LAV(MOD-sp4): 59.4 ml RA A4 area: 13.8 cm2 Time Measurements MV dec time: 0.19 sec Doppler Measurements & Calculations MV E max mukesh: 78.4 cm/sec Lat Peak E' Mukesh: 10.7 cm/sec Med Peak E' Mukesh: 7.2 cm/sec MV A max mukesh: 63.8 cm/sec E/E' lat: 7.3 E/E' med: 10.8 MV E/A: 1.2 Ao V2 max: 318.9 cm/sec LV V1 max: 105.0 cm/sec SV(LVOT): 84.7 ml Ao max P.8 mmHg LV V1 max P.4 mmHg Ao V2 mean: 234.5 cm/sec LV V1 mean P.6 mmHg Ao mean P.9 mmHg LV V1 mean: 78.0 cm/sec Ao V2 VTI: 78.3 cm LV V1 VTI: 27.5 cm TRESSA(I,D): 1.1 cm2 TRESSA(V,D): 1.0 cm2 PA V2 max: 94.8 cm/sec TR max mukesh: 210.2 cm/sec TR max P.7 mmHg Interpretation Summary Normal LV size. Mild concentric left ventricular hypertrophy. Left ventricular systolic function is normal. The estimated ejection fraction is 60 %. Normal diastology for age. Stable appearing bioprosthetic aortic valve apparatus. Mean aortic valve gradient 24 mmHg. Compared to the previous echocardiogram the aortic valve area is only mildly worsened. Ordering Physician: Renetta^Bryon^^^ Referring Physician: Irene Vergara Performed By: Kusum Lopez, RENEE, RVT
--- NOTE | 2020-10-12 14:49 | STRESSREP_ITS ---
Stress Test Report Exercise myocardial perfusion stress test. 65-year-old lady with a history of coronary artery disease status post angioplasty and stenting of the LAD and aortic valve replacement. Medications metoprolol, aspirin, Plavix, candesartan. Stress protocol: Resting EKG demonstrates normal sinus rhythm with a rate of 54 bpm normal intervals are noted resting blood pressure 142/74 mmHg. The patient exercised according to the regular Jas protocol for a total duration of 11 minutes. Patient completed 2 minutes into stage IV of the Jas protocol. The maximum heart rate attained was 130 bpm which was 83% of max impacted heart rate the maximum workload was 13.4 metabolic equivalents. At rest there were no ST or T wave changes noted to suggest ischemia. At approximately 8 minutes and 10 seconds into the exercise in stage III there was 1.7 mm of horizontal depression noted in leads II, III and aVF and 1.[address] depression noted in lead V4, V5 and V6. Occasional premature ventricular complexes were noted. During stage IV there was 1.[address] depression noted in leads II and I 0.[address] depression with in lead V5 and V6. The test was terminated due to fatigue. No chest pain was noted. During recovery there was persistent ST depression noted in the inferolateral leads remaining josué roximately 4 minutes into recovery. The resting blood pressure was 142/74 with a peak blood pressure of the same. The final blood pressure was 120/72 mmHg. Myocardial perfusion protocol. 11.2 mCi of technetium 99m sestamibi was injected at rest. The patient exercised according to regular Jas protocol for a total duration of 11 minutes. The maximum heart rate was 130 bpm and at peak exercise 32.4 mCi of technetium 99 sestamibi was injected stress images were obtained stress and rest images were reconstructed in comparing the short axis vertical long horizontal long axis. Gated images were also obtained Perfusion SPECT analysis: Review of the stress images demonstrated normal uptake of tracer noted in the anterior wall on the stress images. The septum and lateral wall were also well perfused. There was a small area of defect noted in the basal inferior wall and on the resting images demonstrated minimal improvement. Ischemia in this area cannot be completely excluded though diaphragmatic and GI attenuation artifact are also likely. No areas of infarct are noted. Gated SPECT analysis: Gated ejection fraction is 77%. Conclusion: Exercise myocardial perfusion stress test with EKG changes suggestive of ischemia at a high workload. Excellent functional capacity. No angina noted. Mild amount of basal inferior ischemia cannot be completely excluded.
== END ==
PROVIDERS: PCP Family Medicine; Referring Provider Internal Medicine Cardiovascular Disease; Visit Provider Internal Medicine Cardiovascular Disease
DX: I25.10 Atherosclerotic heart disease of native coronary artery without angina pectoris (principal); Z95.5 Presence of coronary angioplasty implant and graft; Z95.2 Presence of prosthetic heart valve
CPT/HCPCS: 78452; 93017; 93306; A9500; A4216

== ENCOUNTER 2020-10-26 07:56 | Day surgery (SDC) | payer OTHER, SELFPAY ==
[2020-01-10 09:13] VITALS: BMI 21.4
[2020-09-24 13:18] VITALS: BMI 22.1
--- NOTE | 2020-10-20 16:45 | RAD_ITS ---
cad; ABNORMAL STRESS TEST. HX OF VALVE REPLACEMENT ABOUT 10 YEARS AGO EXAMINATION/TECHNIQUE: XR Chest 2 Views: COMPARISON: None FINDINGS: LINES/DEVICES: Prosthetic aortic valve LUNGS: No consolidation, edema or effusion. No pneumothorax. MEDIASTINUM AND CARDIOVASCULAR STRUCTURES: Cardiac silhouette not enlarged. Central airways and mediastinal contour are unremarkable. BONES AND SOFT TISSUES: Midline sternotomy wires surgical clips are seen within overlying the T10 and T11 vertebral bodies at the posterior hemithorax RAD/Chest PA and Lateral IMPRESSION: No radiographic evidence of acute cardiopulmonary disease. at [id number] Reported and signed by: Ana Field DO Electronically Signed: Ana Field DO at 2:55 EST Tel , Service support ,
[2020-10-20 17:06] LABS: Absolute Lymphocyte Count 1.54 X10^3/uL (0.83-4.51); Absolute Neutrophil Count 3.8 X10^3/uL (2.0-7.7); Basophil# 0.02 X10^3/uL; Basophil% 0.4 % (0-1); Eosinophil# 0.01 X10^3/uL; Eosinophils% 0.2 % (0-5); Hematocrit 43.5 % (37-47); Hemoglobin 14.1 g/dL (12.0-15.0); Lymphocyte # 1.54 X10^3/ul (4.0); Lymphocyte % 27.1 % (19-41); Mean Corp Hgb Conc 32.4 g/dL (32-36); Mean Corpuscular Hgb 29.4 pg (27.0-32.0); Mean Corpuscular Volume 90.8 fL (81-99); Mean Platelet Vol. 10.2 fl (6.2-12.0); Monocyte# 0.35 X10^3/uL; Monocyte% 6.2 % (0-10); NRBC Flagged by Analyzer 0 % (0-5); Neutrophil # 3.75 X10^3/uL (2.7-7.7); Neutrophil % 65.9 % (47-70); Platelet Count 220 K/mm3 (150-450); RBC Distribution Width CV 12.1 % (11.6-14.6); RBC Distribution Width SD 40.6 fl (35.1-43.9); Red Blood Count 4.79 M/mm3 (4.2-5.4); White Blood Count 5.7 K/mm3 (4.4-11.0)
[2020-10-20 17:53] LABS: Anion Gap 3 (5-15); BUN 15 mg/dL (7-18); BUN/Creat Ratio 15.3 RATIO (10-20); Calcium,Total 9.8 mg/dL (8.5-10.1); Chloride 109 mmol/L (98-107); Creatinine, Serum 0.98 mg/dL (0.55-1.02); EST Glomerular Filtration Rate 61 mL/min (>60); Est Glom Filt Rate - Afr Amer 74 mL/min (>60); Glucose 104 mg/dL (74-106); Sodium Level 142 mmol/L (136-145)
[2020-10-23 07:45] VITALS: BMI 22.1
--- NOTE | 2020-10-26 07:07 | HP_ITS ---
[facility] HPI History of Present Illness Details: EBONI IRWIN, is a 65 F who presents for an office visit. She has a history of aortic valve disease/bicuspid aortic valve status post aortic valve replacement with a bioprosthetic valve in December 2009, hypertension, and hyperlipidemia. She presented to the hospital in July 2019 with chest discomfort she had abnormal troponins and underwent stress testing which demonstrated evidence of anterior ischemia. She underwent a cardiac catheterization which demonstrated a left dominant system, with a normal left main coronary artery, left anterior descending artery with 80% stenosis, first diagonal vessel with 70% stenosis, obtuse marginal branch with 50% stenosis, and a long right coronary artery with an 80% stenotic lesion. She also had collateral flow from right to left and preserved ejection fraction. She underwent angioplasty and stenting with a drug-eluting stent to the left anterior descending artery as well as the diagonal vessel. She had a staged procedure to her RCA in September 2019. She denies any chest pain or shortness of breath or paroxysmal nocturnal dyspnea pedal edema she has had no fatigue no syncope and no pedal edema. She has been compliant with all her medications. Her blood pressures have been normal. Physical exam demonstrates clear lung angulo regular rate and rhythm soft 2/6 systolic murmur noted left sternal border and no pedal edema. Intake Vital Signs 09/24/20 Height 5 ft 4 in 09/24/20 Weight: 129 lb 09/24/20 BMI 22.1 09/24/20 BP 122/78 H 09/24/20 Respiration 16 09/24/20 Pulse 64 09/24/20 Pulse Oximetry (%) 99 Intake Visit Reasons: 7 M FU Allergies lisinopril Adverse Reaction (Mild, Verified 09/24/20 13:18) Dry Cough Medications aspirin 81 mg chewable tablet 81 mg PO DAILY@0800 #90 tab 09/05/19 [Rx Confirmed 09/24/20] melatonin 3 mg tablet 3 mg PO HS PRN 10/04/19 [History Confirmed 09/24/20] clopidogrel 75 mg tablet See Rx Instructions .ROUTE .COMPLEX #90 tab 09/14/20 [Rx Confirmed 09/24/20] metoprolol succinate 50 mg tablet,extended release 24 hr 50 mg PO DAILY #90 tab 09/14/20 [Rx Confirmed 09/24/20] atorvastatin 40 mg tablet 40 mg PO QHS #90 tab 09/23/20 [Rx Confirmed 09/24/20] amoxicillin 500 mg tablet 2,000 mg PO ONCE PRN #8 tab 09/24/20 [Rx Confirmed 09/24/20] candesartan 16 mg tablet 16 mg PO DAILY tab 09/24/20 [History Confirmed 09/24/20] omeprazole 20 mg capsule,delayed release 20 mg PO DAILY cap 09/24/20 [History Confirmed 09/24/20] Ejection fraction %: 65 to 70 PFSH Medical History Atherosclerosis of coronary artery of [place] heart without angina pectoris (Chronic) Non-rheumatic aortic stenosis (Chronic) Essential (primary) hypertension (Chronic) Hyperlipemia (Chronic) ANDERS (obstructive sleep apnea) (Chronic) Bicuspid aortic valve (Chronic) Surgical History History of coronary artery stent placement (Resolved 09/19/19) History of aortic valve replacement (Resolved 12/2009) History of (Resolved) History of left heart catheterization (Resolved 11/20/09) Lung nodule (Resolved) Family History Father Myocardial infarction Heart disease Brother Heart disease Social History (Updated 09/24/20 @ 14:[address] Bryon Jackson MD) Smoking Status: Never smoker alcohol intake: current alcohol intake frequency: a few times a month Alcohol type: wine substance use type: does not use caffeine: Yes Type: coffee Number of servings: 1 ROS Const Const: Negative for fatigue, weakness, headache(s), frequent falls, difficulty sleeping or excessive sweating Eyes Eyes: Negative for loss of peripheral vision, transient loss of vision, blurry vision, double vision or tunnel vision ENT ENT: Negative for headache(s), dizziness, Nosebleed/epistaxis or balance problems Cardio Chest Pain: No Palpitations: No Edema: None Muscle aches with walking: None Resp Respiratory: Negative for SOB with activity, SOB at rest, SOB orthopnea\SOB lying down, Cough or paroxysmal nocturnal dyspnea GI GI: Negative nausea, vomiting, heartburn or black,tarry stools : Negative for hematuria Musc Musc: Negative for muscle aches/ myalgia, muscle weakness, joint pain or balance problems Skin Skin: Negative non-healing lesions, rash or unusual bruising Neuro Neuro: Negative for dizziness, lightheadedness, near syncope, syncope, orthostatic symptoms, frequent falls, headache(s), weakness, blurry vision, double vision or lack of coordination [place] Hematologic/Lymphatic: Negative for easy bleeding or easy bruising Endo Endo: Negative for fatigue, excessive sweating or increased thirst/drinking Psych Psych: Negative for anxiety or depression Allergy Allergy/Immunology: Negative for hives, Negative for rash Cardiology Exam Const Appearance: cooperative, healthy appearing, no acute distress, well developed and well groomed Nutritional Appearance: average body habitus and well nourished Orientation: alert, awake and oriented x3 Head Head: normal to inspection, normocephalic and atraumatic Ears: hearing grossly normal bilaterally and external ears normal Nose: external nose normal, nares normal, nasal mucous membranes and turbinates normal, septum normal, no nasal discharge Face and Sinus: face symmetric Mouth: oral mucosae normal, tongue normal, oropharynx normal and moist mucous membranes Teeth and gingiva: dentition normal Throat: posterior oropharynx normal, tonsils normal and uvula midline Eyes General: appearance normal, both eyes and all related structures Eyelids: eyelids normal Conjunctivae: conjunctivae normal Pupils: PERRL, normal by confrontation and accommodation normal EOM: EOM intact bilaterally Neck Neck: normal visual inspection, trachea midline and no JVD JVD: +5 Carotids: normal carotid upstroke and bounding pulses Chest Chest inspection: normal inspection of the chest, symmetric chest movement and normal respiratory effort Auscultation: Bilateral: Clear to Auscultation Cardio Palpation: normal PMI Rate: regular rate Rhythm: regular rhythm Heart sounds: S1 normal, S2 normal and normal, physiologic split S2; negative rub, gallop or murmur Murmur: Grade 2/6, soft, early systolic and LLSB GI GI: normal to inspection, soft, no hepatosplenomegaly and bowel sounds present Neuro General: alert, awake, oriented x3, gait normal, moves all extremities and no focal sensory deficit Skin Skin: no rashes or lesions noted Extremities Pulses: Normal: Right Femoral Pulse, Left Femoral Pulse, Right Dorsalis Pedis Pulse, Left Dorsalis Pedis Pulse, Right Posterior Tibial Pulse, Left Posterior Tibial Pulse, Right Radial Pulse, Left Radial Pulse Lower Extremity Edema: None: Bilateral Musculoskel Musculoskeletal: No joint tenderness Psych Psychological: normal affect Assessment & Plan 1. History of coronary artery stent placement Z95.5 PCI-JOYA-Mid LAD w/ 2.5 x 24 mm Synergy and JOYA-D1 w/ 2.5 x 12 mm Synergy Stent 07/29/19; DNB-VEE-Nelc RCA w/ 2.5 x Synergy Stent 09/19/2019 Plan She does have a history of coronary artery disease status post angioplasty and stenting of the LAD and diagonal and then a staged procedure for the right coronary artery. I would recommend at this stage that we perform an exercise myocardial perfusion stress test to assess for any evidence of restenosis. Overall she has been doing well and I would not recommend any change in her medications. She would remain on her clopidogrel. Orders Orders: Nuclear Stress Test - Treadmil Today 2. History of aortic valve replacement Z95.2 21 mm Omero Gilmore bioprosthetic aortic valve replacement in December 2009 Plan She is status post aortic valve replacement. Her last echocardiogram performed in April 2019 demonstrated a valve area of 1.4 cm? with a peak mean gradient of 33 and 19 mmHg respectively. With her valve being over 10 years old I would suggest yearly evaluation with echocardiogram. Orders Orders: Echo Complete Today 3. Essential (primary) hypertension I10 Plan Her blood pressure appears to be under excellent control and no changes were made at this time. 4. Hyperlipemia E78.5 Plan She remains on high intensity statin and we would obtain a lipid profile. No changes will be made at this time. Orders Orders: Lipid Profile Today Liver Profile Today Plan Detail Other Medications New: amoxicillin take four tablets 30-60 minutes prior to dental procedure 2,000 mg (4 x 500 mg) PO ONCE PRN 8 tabs 3RF Prosthetic Aortic Valve Follow Up 6 Months (taxi proprietor) Coding Level of Care Code Off vis,est,level 3 Diagnoses History of coronary artery stent placement Z95.5 History of aortic valve replacement Z95.2 Essential (primary) hypertension I10 Hyperlipemia E78.5 Coding Level of Care Code Off vis,est,level 3 Diagnoses History of coronary artery stent placement Z95.5 History of aortic valve replacement Z95.2 Essential (primary) hypertension I10 Hyperlipemia E78.5
--- NOTE | 2020-10-26 09:38 | CL.D_ITS ---
Patient Name: EBONI IRWIN Study Date: 10/26/2020 Performing: Bryon Jackson MD Ht: 64.17 inches 163 cm : 1955 Wt: 130.07 lbs 59 kg Age: 65 Gender: female BSA: 1.63 PROCEDURE(S) PERFORMED [id number]/COR CLINICAL PROFILE AND INDICATIONS Indications: Other Heart Failure: None Stress/Imaging Date: 10/12/20ress Test with SPECT MPI: Positive Low Risk CAD Presentations: No Sxs, no angina. CONCLUSIONS Previously placed stent in the LAD, diagonal, and proximal right coronary artery are noted to be issa nt. The prosthetic aortic valve appears to be stable. RECOMMENDATIONS Medical therapy DESCRIPTION OF PROCEDURE The patient arrived to the procedure lab. The risks and benefits of the procedure as well as a full d escription of our services here and current unavailability of surgical backup were fully explained to the patient and/or their significant other prior to the catheterization. The Timeout was completed, verifying the correct patient and procedure. The patient's procedural site was prepped and draped in the usual fashion. Local anesthetic was given subcutaneously to right radial region with Lidocaine 2% . Local anesthetic was given subcutaneously to right groin region with Lidocaine 2%. Using a modified Seldinger technique, arterial access was obtained via the right radial artery, a 6Fr sheath was inse rted., arterial access was obtained via the right femoral artery, a 5Fr sheath was inserted. Left Co ronary Artery selective angiography was performed in multiple views using a 5 Fr. JL4 catheter. Right Coronary Artery selective angiography was then performed in multiple views using a 5 Fr. 3DRC (Rl) catheter.The arterial sheath was pulled and a TR Band was applied for hemostasis. The arterial sheath was pulled and manual compression applied until hemostasis is achieved. CORONARY ANGIOGRAPHY DOMINANCE: Left Dominant LEFT HEART ASSESSMENT Left Ventricular Ejection Fraction: by Echo 60 % Normal LV wall motion Normal Left Ventricular systolic function LEFT MAIN: Angiographically normal LEFT ANTERIOR DESCENDING ARTERY: MID LAD: Previously placed stent is patent DIAGONAL 1: Proximal - Previously placed stent is patent DIAGONAL 2: Ostial - 60 % Stenosis CIRCUMFLEX ARTERY: No significant disease noted RIGHT CORONARY ARTERY: PROX RCA: Previously placed stent is patent COMPLICATIONS No Complications PROCEDURE MEDICATIONS Fentanyl 50 mcg IV Versed 1 mg IV Fentanyl 25 mcg IV Versed 1 mg IV Oxygen: 2 L/min via nasal cannula Heparin diluted in 23cc Heparinized saline. Patient given 10cc IA of this solution. 10/26/2020 09:13: 54 Verapamil 2.5mg, Ntg 100mcgs, 2000 units of Heparin diluted in 23cc Heparinized saline. Patient give n 10cc IA of this solution. 10/26/2020 09:13:54 SUMMARY OF HEMODYNAMIC DATA Time AIR REST ECG 08:16:05 ECG 08:54:38 AO 106/58 (78) SA 09:22:58 AO 122/77 (94) 09:26:46 Signed By Bryon Jackson MD On 10/26/2020 9:37:39 AM Bryon Jackson MD
== END 2020-10-26 13:50 | disposition home or self-care (01) ==
LOC: CLSP 07:57
PROVIDERS: PCP Family Medicine; Referring Provider Internal Medicine Cardiovascular Disease; Visit Provider Internal Medicine Cardiovascular Disease
DX: I25.10 Atherosclerotic heart disease of native coronary artery without angina pectoris (principal); I10 Essential (primary) hypertension; E78.5 Hyperlipidemia, unspecified; Q23.1 Congenital insufficiency of aortic valve; R94.39 Abnormal result of other cardiovascular function study; G47.33 Obstructive sleep apnea (adult) (pediatric); Z79.82 Long term (current) use of aspirin; Z79.02 Long term (current) use of antithrombotics/antiplatelets; Z79.899 Other long term (current) drug therapy; Z95.2 Presence of prosthetic heart valve; Z95.5 Presence of coronary angioplasty implant and graft; Z95.3 Presence of xenogenic heart valve
CPT/HCPCS: 36415; 71046; 80048; 85025; 93454; 99152; 99153; J7040; C1769; C1894; Q9967

== ENCOUNTER 2020-11-20 10:38 | Outpatient (RCR) | payer OTHER, SELFPAY ==
[2020-01-10 09:13] VITALS: BMI 21.4
[2020-10-23 07:45] VITALS: BMI 22.1
[2020-11-20] MEDS: COVID-19 VACC, MRNA(PFIZER)/PF 30 MCG/0.3 ML SYRINGE IM (15:52)
[2020-12-11] MEDS: COVID-19 VACC, MRNA(PFIZER)/PF 30 MCG/0.3 ML SYRINGE IM (15:33)
== END 2020-11-20 23:59 ==
LOC: IMMUN 10:38
PROVIDERS: PCP Family Medicine; Visit Provider Family Medicine
DX: Z23 Encounter for immunization (principal)
CPT/HCPCS: 0001A; 0002A; 91300

== ENCOUNTER → 2021-04-23 07:52 | Outpatient (CLI) | payer OTHER, SELFPAY ==
[2020-01-10 09:13] VITALS: BMI 21.4
[2021-04-08 15:23] VITALS: BMI 22.3
[2021-04-23 09:09] LABS: AST(SGOT) 23 U/L (15-37); Alanine Aminotransfer ALT/SGPT 41 U/L (13-56); Albumin, Serum 4.1 g/dL (3.2-5.0); Alkaline Phosphatase 54 U/L (45-117); Bilirubin, Direct 0.18 mg/dL (0.00-0.30); Cholesterol 137 mg/dL (200); Globulin 3.4 g/dL (2.2-4.2); High Density Lipoprotein 57 mg/dL; Protein, Total 7.5 g/dL (6.4-8.2); Triglycerides 74 mg/dL; Very Low Density Lipoprotein 15 mg/dL (5-40)
== END ==
PROVIDERS: PCP Family Medicine; Referring Provider Internal Medicine Cardiovascular Disease; Visit Provider Internal Medicine Cardiovascular Disease
DX: E78.5 Hyperlipidemia, unspecified (principal)
CPT/HCPCS: 36415; 80061; 80076

== ENCOUNTER → 2021-06-25 12:02 | Outpatient (CLI) | payer OTHER, SELFPAY ==
[2020-01-10 09:13] VITALS: BMI 21.4
--- NOTE | 2021-06-25 12:03 | BI_ITS ---
MAMMOGRAPHY - BILATERAL SCREENING REASON FOR EXAM: Female, 65 years old. Routine annual screening examination. PERTINENT HISTORY: Mother with breast cancer. TECHNIQUE: Digital bilateral breast moni (3D mammographic acquisition) in the CC and MLO projections. 2-D mediolateral oblique (MLO) and craniocaudad (CC) views of both breasts were obtained. CAD: Full Field Digital Mammography with Computer Added Detection was performed. COMPARISON: Comparison is made with prior examination of 06/19/2020 and 04/19/2019. FINDINGS: Breast Composition: There are scattered areas of fibroglandular density. There are no dominant masses or suspicious calcifications. No other significant abnormalities are identified. There has been no significant change since the prior study. BI/SCRN MAMM (CAD)W/MONI BILAT IMPRESSION: Stable bilateral screening mammogram. Yearly follow-up mammogram recommended. (A) ASSESSMENT CATEGORY: BIRADS Category 1: Negative. A letter regarding these results will be sent to the patient by the facility within 30 days. Approximately 10% of breast cancers are not detected by mammography. A normal mammogram should not delay biopsy of a clinically suspicious abnormality. [id number] Electronically Signed: Ruiz Bronson MD at 13:10 EDT , Service support ,
== END ==
PROVIDERS: PCP Family Medicine; Referring Provider Family Medicine; Visit Provider Family Medicine
DX: Z12.31 Encounter for screening mammogram for malignant neoplasm of breast (principal)
CPT/HCPCS: 77063; 77067

== ENCOUNTER 2021-12-17 12:33 | Outpatient (CLI) | payer MEDICARE, OTHER, SELFPAY ==
[2020-01-10 09:13] VITALS: BMI 21.4
[2021-12-17 14:05] LABS: AST(SGOT) 25 U/L (15-37); Alanine Aminotransfer ALT/SGPT 35 U/L (13-56); Albumin, Serum 4.1 g/dL (3.2-5.0); Alkaline Phosphatase 55 U/L (45-117); Bilirubin, Direct 0.25 mg/dL (0.00-0.30); Cholesterol 141 mg/dL (200); Globulin 3.4 g/dL (2.2-4.2); High Density Lipoprotein 61 mg/dL; Protein, Total 7.5 g/dL (6.4-8.2); Triglycerides 55 mg/dL; Very Low Density Lipoprotein 11 mg/dL (5-40)
== END 2021-12-17 23:59 | disposition home or self-care (01) ==
LOC: LAB 12:35
PROVIDERS: PCP Family Medicine; Referring Provider Nurse Practitioner Family; Visit Provider Nurse Practitioner Family
DX: E78.00 Pure hypercholesterolemia, unspecified (principal); E78.5 Hyperlipidemia, unspecified
CPT/HCPCS: 36415; 80061; 80076

== ENCOUNTER → 2022-06-27 | Outpatient (CLI) | payer MEDICARE, OTHER, SELFPAY ==
[2020-01-10 09:13] VITALS: BMI 21.4
--- NOTE | 2022-06-27 13:21 | BI_ITS ---
MAMMOGRAPHY - BILATERAL SCREENING REASON FOR EXAM: Female, 66 years old. Routine annual screening examination. PERTINENT HISTORY: Mother with breast cancer. TECHNIQUE: Digital bilateral breast moni (3D mammographic acquisition) in the CC and MLO projections. 2-D mediolateral oblique (MLO) and craniocaudad (CC) views of both breasts were obtained. CAD: Full Field Digital Mammography with Computer Added Detection was performed. COMPARISON: Comparison is made with prior study dated 06/25/2021 and 06/19/2020. FINDINGS: Breast Composition: There are scattered areas of fibroglandular density. There are no dominant masses or suspicious calcifications. Stable small benign-appearing bilateral axillary lymph nodes. No other significant abnormalities are identified. There has been no significant change since the prior study. BI/SCRN MAMM (CAD)W/MONI BILAT IMPRESSION: Stable bilateral screening mammogram. Yearly follow-up mammogram recommended. (A) ASSESSMENT CATEGORY: BIRADS Category 2: Benign. A letter regarding these results will be sent to the patient by the facility within 30 days. Approximately 10% of breast cancers are not detected by mammography. A normal mammogram should not delay biopsy of a clinically suspicious abnormality. [id number] Electronically Signed: Ruiz Bronson MD at 14:22 EDT ,
== END | disposition home or self-care (01) ==
LOC: OPBI 13:19
PROVIDERS: PCP Family Medicine; Visit Provider Family Medicine
DX: Z12.31 Encounter for screening mammogram for malignant neoplasm of breast (principal); Z80.3 Family history of malignant neoplasm of breast
CPT/HCPCS: 77063; 77067

== ENCOUNTER → 2023-03-22 | Outpatient (CLI) | payer MEDICARE, OTHER, SELFPAY ==
[2020-01-10 09:13] VITALS: BMI 21.4
[2023-03-22 08:14] LABS: Absolute Lymphocyte Count 2.01 X10^3/uL (0.83-4.51); Absolute Neutrophil Count 2.6 X10^3/uL (2.0-7.7); Basophil# 0.03 X10^3/uL; Basophil% 0.6 % (0-1); Eosinophil# 0.01 X10^3/uL; Eosinophils% 0.2 % (0-5); Hematocrit 43.1 % (37-47); Hemoglobin 14.4 g/dL (12.0-15.0); Lymphocyte # 2.01 X10^3/ul (0.83-4.51); Lymphocyte % 39.6 % (19-41); Mean Corp Hgb Conc 33.4 g/dL (32-36); Mean Corpuscular Hgb 29.9 pg (27.0-32.0); Mean Corpuscular Volume 89.6 fL (81-99); Mean Platelet Vol. 9.7 fl (6.2-12.0); Monocyte# 0.44 X10^3/uL; Monocyte% 8.7 % (0-10); NRBC Flagged by Analyzer 0 % (0-5); Neutrophil # 2.58 X10^3/uL (2.7-7.7); Neutrophil % 50.9 % (47-70); Platelet Count 203 K/mm3 (150-450); RBC Distribution Width CV 12.2 % (11.6-14.6); RBC Distribution Width SD 40.1 fl (35.1-43.9); Red Blood Count 4.81 M/mm3 (4.2-5.4); White Blood Count 5.1 K/mm3 (4.4-11.0)
[2023-03-22 09:11] LABS: ALB/GLOB Ratio 1.1 RATIO (0.9-2.4); AST(SGOT) 20 U/L (15-37); Alanine Aminotransfer ALT/SGPT 27 U/L (13-56); Albumin, Serum 3.8 g/dL (3.2-5.0); Alkaline Phosphatase 55 U/L (45-117); Anion Gap 2 (5-15); BUN 21 mg/dL (7-18); BUN/Creat Ratio 21.5 RATIO (10-20); Calcium,Total 9.5 mg/dL (8.5-10.1); Chloride 110 mmol/L (98-107); Creatinine, Serum 0.98 mg/dL (0.55-1.02); EST Glomerular Filtration Rate 61 mL/min (>60); Est Glom Filt Rate - Afr Amer 73 mL/min (>60); Globulin 3.6 g/dL (2.2-4.2); Glucose 88 mg/dL (74-106); Potassium 3.8 mmol/L (3.5-5.1); Protein, Total 7.4 g/dL (6.4-8.2); Sodium Level 139 mmol/L (136-145)
== END | disposition home or self-care (01) ==
LOC: LAB 07:43
PROVIDERS: PCP Family Medicine; Referring Provider Family Medicine; Visit Provider Family Medicine
DX: Z51.81 Encounter for therapeutic drug level monitoring (principal)
CPT/HCPCS: 36415; 80053; 85025

== ENCOUNTER → 2023-06-28 | Outpatient (CLI) | payer MEDICARE, OTHER, SELFPAY ==
[2020-01-10 09:13] VITALS: BMI 21.4
--- NOTE | 2023-06-28 07:46 | BI_ITS ---
MAMMOGRAPHY - BILATERAL SCREENING REASON FOR EXAM: Female, 67 years old. Routine annual screening examination. PERTINENT HISTORY: Mother with breast cancer. TECHNIQUE: Digital bilateral breast moni (3D mammographic acquisition) in the CC and MLO projections. 2-D mediolateral oblique (MLO) and craniocaudad (CC) views of both breasts were obtained. CAD: Full Field Digital Mammography with Computer Added Detection was performed. COMPARISON: Comparison is made with prior study June 27, 2022 and June 25, 2021. FINDINGS: Breast Composition: There are scattered areas of fibroglandular density. There are no dominant masses or suspicious calcifications. Stable small benign-appearing bilateral axillary lymph nodes. No other significant abnormalities are identified. There has been no significant change since the prior study. BI/SCRN MAMM (CAD)W/MONI BILAT IMPRESSION: Stable bilateral screening mammogram. Yearly follow-up mammogram recommended. (A) ASSESSMENT CATEGORY: BIRADS Category 2: Benign. A letter regarding these results will be sent to the patient by the facility within 30 days. Approximately 10% of breast cancers are not detected by mammography. A normal mammogram should not delay biopsy of a clinically suspicious abnormality. [id number] Electronically Signed: Ruiz Bronson MD at 12:36 EDT ,
== END | disposition home or self-care (01) ==
LOC: OPBI 07:44
PROVIDERS: PCP Family Medicine; Referring Provider Family Medicine; Visit Provider Family Medicine
DX: Z12.31 Encounter for screening mammogram for malignant neoplasm of breast (principal); Z80.3 Family history of malignant neoplasm of breast
CPT/HCPCS: 77063; 77067

== ENCOUNTER → 2024-05-16 | Outpatient (CLI) | payer MEDICARE, OTHER, SELFPAY ==
[2020-01-10 09:13] VITALS: BMI 21.4
[2024-05-16 11:26] LABS: AST(SGOT) 18 U/L (15-37); Alanine Aminotransfer ALT/SGPT 23 U/L (13-56); Albumin, Serum 3.7 g/dL (3.2-5.0); Alkaline Phosphatase 54 U/L (45-117); Bilirubin, Direct 0.27 mg/dL (0.00-0.30); Cholesterol 136 mg/dL (200); Globulin 3.4 g/dL (2.2-4.2); High Density Lipoprotein 58 mg/dL; Protein, Total 7.1 g/dL (6.4-8.2); Triglycerides 68 mg/dL; Very Low Density Lipoprotein 14 mg/dL (5-40)
== END | disposition home or self-care (01) ==
LOC: LAB 09:34
PROVIDERS: PCP Family Medicine; Referring Provider Internal Medicine Cardiovascular Disease; Visit Provider Internal Medicine Cardiovascular Disease
DX: E78.00 Pure hypercholesterolemia, unspecified (principal)
CPT/HCPCS: 36415; 80061; 80076

== ENCOUNTER → 2024-07-12 | Outpatient (CLI) | payer MEDICARE, OTHER, SELFPAY ==
[2020-01-10 09:13] VITALS: BMI 21.4
--- NOTE | 2024-07-12 06:28 | ECHOD_ITS ---
Reason For Study: CHEST PAIN Procedure This was a 2D Doppler, Color Flow transthoracic echocardiogram. Exam performed in department. Left Ventricle Normal LV size. Left ventricular systolic function is normal. The left ventricular ejection fraction is 70 %. Stage 1 diastolic dysfunction. No regional wall motion abnormalities noted. Right Ventricle Normal RV size. Normal systolic function. Atria Normal left atrium. Normal right atrium. Mitral Valve Normal mitral valve. Mild (1+) eccentric mitral valve insufficiency. Tricuspid Valve Normal tricuspid valve. Mild (1+) tricuspid valve insufficiency. Pulmonary artery systolic pressure is 28 mmHg. Aortic Valve Peak aortic valve gradient 34 mmHg. Mean aortic valve gradient 22 mmHg. Bioprosthetic aortic valve functioning normally. Pulmonic Valve Normal pulmonic valve. Great Vessels Normal aortic root. The pulmonary artery is normal size. Inferior vena cava collapse with respiration. Pericardium/Pleural No pericardial effusion. MMode/2D Measurements & Calculations LVIDd: 4.6 cm IVSd: 1.0 cm LVOT diam: 1.6 cm LVIDs: 2.5 cm LVPWd: 1.1 cm LVOT area: 2.0 cm2 RVDd: 3.0 cm FS: 45.5 % Ao root diam: 3.7 cm LAV(MOD-bp): 53.6 ml LVAd ap4: 24.4 cm2 LAV(MOD-bp) Indexed: 32.9 ml/m2 LVLd ap4: 7.9 cm LAV(MOD-sp2): 51.3 ml EDV(MOD-sp4): 62.3 ml LAV(MOD-sp4): 46.3 ml EDV(sp4-el): 63.6 ml LVAs ap4: 9.2 cm2 LVLs ap4: 5.3 cm ESV(MOD-sp4): 15.4 ml ESV(sp4-el): 13.6 ml EF(MOD-sp4): 75.2 % EF(sp4-el): 78.7 % SV(MOD-sp4): 46.9 ml SV(sp4-el): 50.1 ml LA A4 area: 18.4 cm2 SI(MOD-sp4): 28.8 ml/m2 LA dimension(2D): 3.5 cm RA A4 area: 12.7 cm2 Time Measurements MV dec time: 0.23 sec Doppler Measurements & Calculations MV E max mukesh: 70.5 cm/sec Lat Peak E' Mukesh: 11.9 cm/sec Med Peak E' Mukesh: 7.3 cm/sec MV A max mukesh: 80.9 cm/sec E/E' lat: 5.9 E/E' med: 9.7 MV E/A: 0.87 MV V2 max: 84.5 cm/sec Ao V2 max: 292.2 cm/sec MV max P.9 mmHg MV dec slope: 309.1 cm/sec2 Ao max P.2 mmHg MV V2 mean: 51.8 cm/sec Ao V2 mean: 224.3 cm/sec MV mean P.2 mmHg Ao mean P.9 mmHg MV V2 VTI: 32.0 cm Ao V2 VTI: 75.7 cm PA V2 max: 107.4 cm/sec TR max mukesh: 249.1 cm/sec PA V2 mean: 75.0 cm/sec TR max P.8 mmHg ECHO/Echo Complete Interpretation Summary Normal LV size. Left ventricular systolic function is normal. The left ventricular ejection fraction is 70 %. Stage 1 diastolic dysfunction. Mean aortic valve gradient 22 mmHg. Bioprosthetic aortic valve functioning normally. Ordering Physician: Bryon Jackson Referring Physician: Bryon Jackson Performed By: Jossy Schmidt RCS
--- NOTE | 2024-07-12 16:01 | STRESSREP_ITS ---
Stress Test Report Exercise myocardial perfusion stress test. 68-year-old lady with a history of coronary disease and aortic valve replacement. Stress protocol: Resting EKG demonstrates normal sinus rhythm with a rate of 58 bpm resting blood pressure is 144/84 mmHg. The patient exercised according to the regular Jas protocol for a total duration of 9 minutes attaining a maximum heart rate of 115 bpm which was 75% of maximum predicted heart rate; the maximum workload was 10.1 metabolic equivalents. At rest there were no ST or T wave changes noted to mckoy ggest ischemia and at peak exercise approximately 1.[address] depression were noted in leads II, III and aVF and 1.[address] depression noted in V5 and V6 suggestive of ischemia. These also persisted during recovery. No clinical angina was noted the test was terminated due to the target heart rate being achieved/fatigue. No chest pain was noted. The peak blood pressure was 148/98 mmHg. Rate-pressure product was 13,800. Myocardial perfusion protocol. 9.9 mCi of technetium 99m sestamibi was injected at rest. The patient exercised according to regular Jas protocol for total duration of 9 minutes and at peak exercise 30.7 mCi of technetium 99m sestamibi was injected stress images were obtained stress and rest images were reconstructed in comparing the short axis vertical long and horizontal long axis. Gated images were also obtained. Perfusion SPECT analysis: Review of the stress images demonstrate normal uptake of tracer noted in all areas of the myocardium. The resting images similarly demonstrate normal uptake of tracer noted in all areas of the myocardium. No areas of reversibility are noted to suggest ischemia no previous infarct was noted. Gated SPECT analysis: The gated ejection fraction is 79%. Conclusion: Normal exercise myocardial perfusion stress test at a high workload. EKG changes noted. The EKG changes were also present during exercise during the stress test in 2020. Preserved ejection fraction.
== END | disposition home or self-care (01) ==
LOC: CVS 06:27
PROVIDERS: PCP Family Medicine; Referring Provider Internal Medicine Cardiovascular Disease; Visit Provider Internal Medicine Cardiovascular Disease
DX: I25.10 Atherosclerotic heart disease of native coronary artery without angina pectoris (principal); Q23.1 Congenital insufficiency of aortic valve; I10 Essential (primary) hypertension; Z95.2 Presence of prosthetic heart valve; Z95.5 Presence of coronary angioplasty implant and graft; E78.00 Pure hypercholesterolemia, unspecified; I35.0 Nonrheumatic aortic (valve) stenosis; R07.9 Chest pain, unspecified
CPT/HCPCS: 78452; 93017; 93306; A9500; A4216

== ENCOUNTER → 2024-07-16 | Outpatient (CLI) | payer MEDICARE, OTHER, SELFPAY ==
[2020-01-10 09:13] VITALS: BMI 21.4
[2024-07-16 12:06] LABS: Absolute Lymphocyte Count 1.41 X10^3/uL (0.83-4.51); Absolute Neutrophil Count 3.4 X10^3/uL (2.0-7.7); Basophil# 0.04 X10^3/uL; Basophil% 0.8 % (0-1); Eosinophil# 0.03 X10^3/uL; Eosinophils% 0.6 % (0-5); Hematocrit 43.3 % (37-47); Hemoglobin 14.4 g/dL (12.0-15.0); Lymphocyte # 1.41 X10^3/ul (0.83-4.51); Lymphocyte % 26.6 % (19-41); Mean Corp Hgb Conc 33.3 g/dL (32-36); Mean Corpuscular Hgb 29.4 pg (27.0-32.0); Mean Corpuscular Volume 88.5 fL (81-99); Mean Platelet Vol. 9.9 fl (6.2-12.0); Monocyte# 0.39 X10^3/uL; Monocyte% 7.3 % (0-10); NRBC Flagged by Analyzer 0 % (0-5); Neutrophil # 3.43 X10^3/uL (2.7-7.7); Neutrophil % 64.5 % (47-70); Platelet Count 216 K/mm3 (150-450); RBC Distribution Width CV 12.2 % (11.6-14.6); RBC Distribution Width SD 39.8 fl (35.1-43.9); Red Blood Count 4.89 M/mm3 (4.2-5.4); White Blood Count 5.3 K/mm3 (4.4-11.0)
[2024-07-16 12:21] LABS: Vitamin B12 448 pg/mL (211-911); Vitamin D,25 Hydroxy 29.9 ng/mL
[2024-07-16 12:25] LABS: Anion Gap 4 (5-15); BUN 12 mg/dL (7-18); BUN/Creat Ratio 14.2 RATIO (10-20); Calcium,Total 9.9 mg/dL (8.5-10.1); Chloride 108 mmol/L (98-107); Creatinine, Serum 0.84 mg/dL (0.55-1.02); EST Glomerular Filtration Rate 71 mL/min (>60); Est Glom Filt Rate - Afr Amer 86 mL/min (>60); Glucose 98 mg/dL (74-106); Magnesium 2.3 mg/dL (1.6-2.6); Potassium 4.2 mmol/L (3.5-5.1); Sodium Level 138 mmol/L (136-145); T4 Free Direct 1.26 ng/dL (0.76-1.46)
== END | disposition home or self-care (01) ==
LOC: BFHLAB 09:59
PROVIDERS: PCP Family Medicine; Referring Provider Family Medicine; Visit Provider Family Medicine
DX: I10 Essential (primary) hypertension (principal); E55.9 Vitamin D deficiency, unspecified; E03.9 Hypothyroidism, unspecified; E53.8 Deficiency of other specified B group vitamins
CPT/HCPCS: 36415; 80048; 82306; 82607; 83735; 84439; 84443; 85025

== ENCOUNTER → 2024-07-22 | Outpatient (CLI) | payer MEDICARE, OTHER, SELFPAY ==
[2020-01-10 09:13] VITALS: BMI 21.4
== END | disposition home or self-care (01) ==
LOC: OPBI 08:40
PROVIDERS: PCP Family Medicine; Referring Provider Family Medicine; Visit Provider Family Medicine
DX: Z12.31 Encounter for screening mammogram for malignant neoplasm of breast (principal)
CPT/HCPCS: 77063; 77067

== ENCOUNTER → 2025-06-12 | Outpatient (CLI) | payer MEDICARE, OTHER, SELFPAY ==
[2024-10-12 08:36] VITALS: BMI 21.4
[2025-06-12 10:46] LABS: AST(SGOT) 22 U/L (<=31); Alanine Aminotransfer ALT/SGPT 16 U/L (<=34); Albumin, Serum 4.3 g/dL (3.4-4.8); Alkaline Phosphatase 56 U/L (35-104); Bilirubin, Direct 0.28 mg/dL (0.00-0.30); Cholesterol 140 mg/dL (<=200); Globulin 2.8 g/dL (2.2-4.2); Low Density Lipoprotein Calc. 67 mg/dL; Triglycerides 79 mg/dL; Very Low Density Lipoprotein 16 mg/dL (5-40); cholesterol:hdl ratio screen 2.45
== END | disposition home or self-care (01) ==
PROVIDERS: Nurse Practitioner Family; PCP Family Medicine; Referring Provider Nurse Practitioner Gerontology; Visit Provider Nurse Practitioner Gerontology
DX: E78.00 Pure hypercholesterolemia, unspecified (principal)
CPT/HCPCS: 36415; 80061; 80076

== ENCOUNTER → 2025-07-14 | Outpatient (CLI) | payer MEDICARE, OTHER, SELFPAY ==
[2024-10-12 08:36] VITALS: BMI 21.4
--- NOTE | 2025-07-14 09:41 | CDU_ITS ---
Reason For Study VL/Carotid Duplex Ultrasound
== END | disposition home or self-care (01) ==
LOC: CVS 09:41
PROVIDERS: PCP Family Medicine; Referring Provider Nurse Practitioner Gerontology; Visit Provider Nurse Practitioner Gerontology
DX: R09.89 Other specified symptoms and signs involving the circulatory and respiratory systems (principal); Z95.2 Presence of prosthetic heart valve
CPT/HCPCS: 93306; 93880

== ENCOUNTER 2025-08-13 13:52 | Outpatient (CLI) | payer MEDICARE, OTHER, SELFPAY ==
[2024-10-12 08:36] VITALS: BMI 21.4
--- NOTE | 2025-08-13 14:06 | CT_ITS ---
PROCEDURE: CTA CHEST W/WO CONTRAST 08/13/2025 REASON FOR EXAM: POSSIBLE LEFT SUBCLAVIAN ARTERY TECHNIQUE: Procedure Code: [id number] Modality: CT Procedure: CTA CHEST W/WO CONTRAST Multiplanar Sagittal and Coronal images were obtained. CONTRAST: Isovue 370 VOLUME: 75 mL One or more dose reduction techniques were used (e.g., Automated exposure control, adjustment of the mA and/or kV according to patient size, use of iterative reconstruction technique). RADIATION DOSE SUMMARY: CTDlvol: 6.52 mGy DLP: 276.15 mGycm COMPARISON: Chest x-ray 10/20/2019. # of known CTs in the past 12 months: 0 # of known Cardiac Nuclear Medicine Studies in the past 12 months: 0 FINDINGS: Thoracic Aorta: Atherosclerotic plaques. No aneurysm or dissection. Heart: No cardiomegaly. Atherosclerotic calcifications of the coronary arteries. Pulmonary Vessels: Patent. Hardware: None. Lymph nodes: No lymphadenopathy. Lungs and Airways: Clear. Pleura: No pleural effusion or pneumothorax. Upper Abdomen: No acute abdominal abnormalities. Bones: CT/CTA Chest W/WO Contrast IMPRESSION: No acute chest abnormalities. No subclavian artery stenosis. Reading Location: [facility]
--- NOTE | 2025-08-13 14:53 | BI_ITS ---
EXAM: SCRN MAMM (CAD)W/MONI BILAT DATE: 08/13/2025 CLINICAL HISTORY: F, Age 69 y/o , SCREENING TECHNIQUE: Procedure Code: [id number] Modality: MG Procedure: SCRN MAMM (CAD)W/MONI BILAT COMPARISON: Prior exam(s) were compared FINDINGS: TISSUE DENSITY: There are scattered areas of fibroglandular density. Bilateral Breast Mammographic Findings: No significant masses, calcifications or other abnormalities are identified. BI/SCRN MAMM (CAD)W/MONI BILAT IMPRESSION: No mammographic evidence of malignancy. OVERALL FINAL ASSESSMENT BI-RADS 1: NEGATIVE. RECOMMENDATION: Routine annual follow-up in 1 Year Additional Recommendation none A letter with findings and recommendations will be mailed to the patient. Reading Location: [id number]
--- OUTSIDE RECORDS SUMMARY | 2025-08-13 16:26 | XMS RPT_ITS | CCD ---
Author Organization [facility] Care Team Providers Care Field Service Engineer Name Role Phone Pati SHEIKH, Nadia Fagan Unavailable Unavailable Ricky ROJAS, Zita Reinoso Unavailable [phone] Viktoriya Beth Unavailable Viktoriya Beth Unavailable Dr. Irene Vergara Primary Care Provider Dr. Irene Vergara Referring Provider [phone]([facility])[phone] Jas Jo Attending Provider 1([facility])[phone] Irene Vergara Primary Care Provider Dr. Irene Vergara Referring Provider Dr. Bryon Jackson Attending Provider Dr. Jas Jo Attending Provider Dr. Irene Vergara DO Primary Care Provider 1([facility])[phone] Dr. Irene Vergara DO Referring Provider Gerard Gomez Attending Provider Dr. Irene Vergara DO Primary Care Physician Gerard Gomez Attending Physician [phone] Nikki Warner Attending Physician Sebastian DIANECNikki Referring Provider Nikki Cortes NP Attending Unavailable Malys, Irene Primary Care Unavailable Malys, Irene Referring Unavailable Gerard Antonio Attending Unavailable Malys, Irene Primary Care Unavailable Malys, Irene Referring Unavailable Savage ANGELES, Carmelo Grimm Attending Unavailable Malys, Irene Primary Care Unavailable Malys, Irene Referring Unavailable Sebastian ANGELES, Nikki Attending Unavailable Malys, Irene Primary Care Unavailable Malys, Irene Referring Unavailable Malys, Irene Primary Care Unavailable Davide ESTIMATE CLERK, Radha Attending Unavailable Sebastian ESTIMATE CLERK, Nikki Attending Unavailable Sebastian ESTIMATE CLERK, Nikki Referring Unavailable Malys, Irene Primary Care Unavailable Sebastian ESTIMATE CLERK, Nikki Attending Unavailable Sebastian ESTIMATE CLERK, Nikki Referring Unavailable Malys, Irene Primary Care Unavailable Allergies Allergy Classification Reported Allergen(s) Allergy Type Date of Onset Reaction(s) Facility (5 sources) Lisinopril Drug Allergy 04-06-2022 Dry Cough [facility] (1 source) Lisinopril Drug Allergy 07-04-2025 [facility] Repository Medications Current Medications Medication Drug Class(es) Dates Sig (Normalized) Sig (Original) ALPRAZolam 0.25 mg oral tablet (1 source) Benzodiazepine Start: 06-12-2025 take 1 tablet by mouth at bedtime as needed amoxicillin 500 mg oral tablet (20 sources) Penicillin-class Antibacterial Start: 10-12-2024 End: 04-28-2025 take 4 tablets by mouth once as needed Start: 09-24-2020 End: 05-14-2024 Amoxicillin 500 mg tablet Discontinued 2000 mg PO ONCE as needed for Prosthetic Aortic Valve 8 October 04, 2021 4:35pm May 14, 2024 2:51pm take four tablets 30-60 minutes prior to dental procedure Start: 09-24-2020 End: 10-04-2021 Amoxicillin Discontinued 200 0 MG PO ONCE September 24, 2020 2:53pm October 04, 2021 4:35pm take four tablets 30-60 minutes prior to dental procedure Start: 06-24-2019 End: 06-28-2019 take 4 capsules by mouth once daily as needed Amoxicillin 500 mg capsule Discontinued 2000 mg PO DAILY as needed for Dental Procedure 4 3 June 24, 2019 1:47pm June 28, 2019 9:40am Start: 06-24-2019 End: 06-28-2019 take 2000 mg by mouth once daily Amoxicillin Discontin ued 2000 MG PO DAILY June 24, 2019 1:47pm June 28, 2019 9:40am Start: 05-11-2018 End: 06-24-2019 take 2 g by mouth once daily as needed Amoxicillin 500 mg capsule Discontinued 2 g PO DAILY as needed for Dental Procedure 4 3 May 11, 2018 10:17am June 24, 2019 1:47pm Start: 05-11-2018 End: 06-24-2019 take 2 g by mouth once daily Amoxicillin Discontinued 2 GM PO DAILY May 11, 2018 10:17am June 24, 2019 1:47pm Start: 10-04-2016 take 4 tablets by mo uth every hour AMOXICILLIN 500 MG TABS 4 tablets by mouth 1 hr prior to procedure AMOXICILLIN [id number] Bryon Jackson MD busPIRone hydrochloride 5 mg oral tablet (1 source) Start: 06-12-2025 take 1 tablet by mouth twice daily as needed 24 hr metoprolol succinate 50 mg extended release oral tablet (20 sources) beta-Adrenergic Sanna Start: 07-30-2019 End: 06-11-2025 take 1 tablet by mouth once daily Completed/Discontinued Medications Medication Drug Class(es) Dates Sig (Normalized) Sig (Original) acetaminophen 325 mg / chlorpheniramine maleate 2 mg oral tablet (4 sources) Histamine-1 Receptor Antagonist Start: 03-10-2023 End: 05-14-2024 Chlorpheniramine- Acetaminophen (Coricidin Hbp Cold And Flu) 2-325 mg tablet Discontinued 1 {tbl} PO ONCE March 10, 2023 12:00am May 14, 2024 2:52pm amoxicillin 875 mg / clavulanate 125 mg oral tablet (2 sources) Penicillin-class Antibacterial Start: 10-12-2024 End: 10-19-2024 Amoxicillin-Pot Clavulanate 875-125 mg tablet Discontinued 1 {tbl} PO TWICE A DAY 14 7 0 October 12, 2024 1:00am October 18, 2024 1:00am October 19, 2024 1:22am aspirin 81 mg chewable tablet (20 sources) Nonsteroidal Anti-inflammatory Drug Start: 02-18-2016 End: 03-10-2023 take 1 tablet by mouth once daily Aspirin 81 mg tablet,chewable Discontinued 81 mg PO DAILY@0800 90 6 September 05, 2019 3:34pm March 10, 2023 11:36am HEART Start: 03-16-2011 take 1 tablet by seferino th once daily ASPIRIN 81 MG TABS One tablet by mouth daily ASPIRIN [id number] Constanza Mixon Start: 03-16-2011 take 1 tablet by seferino th once daily ASPIRIN 81 MG TABS One tablet by mouth daily ASPIRIN [id number] Constanza Mixon Start: 03-16-2011 take 1 tablet by seferino th once daily ASPIRIN EC 81 MG TBEC One tablet by mouth daily ASPIRIN [id number] Nery Carvalho RN atorvastatin 40 mg oral tablet (20 sources) HMG-CoA Reductase Inhibitor Start: 07-30-2019 End: 11-27-2024 take 1 tablet by mouth at bedtime Atorvastatin 40 mg tablet Discontinued 40 mg PO AT BEDTIME 90 3 December 08, 2023 8:02am November 27, 2024 12:59pm candesartan cilexetil 16 mg oral tablet (20 sources) Angiotensin 2 Receptor Sanna Start: 09-24-2020 End: 03-12-2025 take 1 tablet by mouth once daily Candesartan 16 mg tablet Discontinued 0 .ROUTE .COMPLEX 90 3 March 10, 2025 12:04pm March 12, 2025 11:09am TAKE 1 TABLET BY MOUTH EVERY DAY Start: 01-24-2020 End: 03-30-2020 take 1 tablet by mouth once daily Candesartan 16 mg tablet Discontinued 16 mg PO DAILY 90 3 March 17, 2020 2:47pm March 30, 2020 12:36pm clopidogrel 75 mg oral tablet (20 sources) P2Y12 Platelet Inhibitor Start: 09-05-2019 End: 08-28-2024 take 1 tablet by mouth once daily Clopidogrel 75 mg tablet Discontinued 0 .ROUTE .COMPLEX 90 3 September 12, 2023 9:07am August 28, 2024 9:02am TAKE 1 TABLET BY MOUTH EVERY DAY hydroCHLOROthiazide 12.5 mg / lisinopril 10 mg oral tablet (8 sources) Thiazide Diuretic, Angiotensin Converting Enzyme Inhibitor Start: 03-23-2012 End: 03-26-2013 take 1 tablet by mouth once daily LISINOPRIL-HYDRO CHLOROTHIAZIDE 10-12.5 MG TABS One tablet by mouth daily LISINOPRIL-HYDRO CHLOROTHIAZIDE [id number] Bryon Jackson MD LORazepam 0.5 mg oral tablet (4 sources) Benzodiazepine Start: 03-10-2023 End: 06-12-2025 take 1 tablet by mouth at bedtime as needed Lorazepam 0.5 mg tablet Discontinued 0.5 mg PO AT BEDTIME as needed March 10, 2023 12:00am June 12, 2025 9:17am losartan potassium 100 mg oral tablet (20 sources) Angiotensin 2 Receptor Sanna Start: 03-30-2020 End: 09-24-2020 take 1 tablet by mouth once daily Losartan 100 mg tablet Discontinued 100 mg PO DAILY 90 3 March 30, 2020 12:00am September 24, 2020 2:52pm Start: 05-02-2019 End: 01-24-2020 take 1 tablet by mouth once daily Losartan 100 mg tablet Discontinued 100 mg PO DAILY 90 September 05, 2019 3:35pm January 24, 2020 9:42am BP Start: 03-26-2013 End: 05-02-2019 take 1 tablet by mouth once daily Losartan 50 mg tablet Discontinued 50 mg PO DAILY February 18, 2019 1:25pm May 02, 2019 10:32am BP melatonin 3 mg oral tablet (5 sources) Start: 10-04-2019 End: 06-12-2025 take 1 tablet by mouth at bedtime as needed for sleep Melatonin 3 mg tablet Discontinued 3 mg PO BEDTIME as needed for Sleep October 04, 2019 1:00am June 12, 2025 9:17am OMEGA-3 FATTY ACIDS CPDR (2 sources) Start: 03-16-2011 End: 03-26-2013 take 1 tablet by mouth twice daily OMEGA 3 CPDR One tablet by mouth twice daily OMEGA-3 FATTY ACIDS CPDR [id number] Bryon Jackson MD Start: 03-16-2011 [facility] OMEGA 3 CPDR One tablet by mouth twice daily OMEGA-3 FATTY ACIDS CPDR [id number] Constanza Mixon OMEGA-3 FATTY ACIDS CPDR (6 sources) Start: 03-16-2011 take 1 tablet by mouth twice daily OMEGA 3 CPDR One tablet by mouth twice daily OMEGA-3 FATTY ACIDS CPDR [id number] Constanza Mixon Start: 03-16-2011 End: 03-26-2013 take 1 tablet by mouth twice daily OMEGA 3 CPDR One tablet by mouth twice daily OMEGA-3 FATTY ACIDS CPDR [id number] Bryon Jackson MD Start: 03-16-2011 take 1 tablet by seferino twice daily OMEGA 3 CPDR One tablet by mouth twice daily OMEGA-3 FATTY ACIDS CPDR [id number] Constanza Mixon Start: 03-16-2011 End: 03-26-2013 take 1 tablet by mouth twice daily OMEGA 3 CPDR One tablet by mouth twice daily OMEGA-3 FATTY ACIDS CPDR [id number] Bryon Jackson MD omeprazole 20 mg delayed release oral capsule (20 sources) Proton Pump Inhibitor Start: 12-17-2021 End: 03-10-2023 take 1 capsule by mouth once daily Omeprazole 20 mg capsule,delayed release(DR/EC) Discontinued 20 mg PO DAILY December 17, 2021 12:00am March 10, 2023 11:35am Start: 07-27-2019 End: 04-08-2021 take 1 capsule by mouth once daily Omeprazole 20 mg capsule,delayed release(DR/EC) Discontinued 20 mg PO DAILY September 24, 2020 2:52pm April 08, 2021 3:26pm indigestion predniSONE 10 mg oral tablet (1 source) Start: 04-24-2025 End: 05-06-2025 Prednisone 10 mg tablet Discontinued 10 mg PO As Directed 30 12 0 April 24, 2025 12:00am May 05, 2025 12:00am May 06, 2025 12:05am Unspecified contact dermatitis, unspecified cause Take 4 tabs once daily days 1-3 3 tabs once daily days 4-6 2 tabs once daily days 7-9 and 1 tab once daily days 10-12. ticagrelor 90 mg oral tablet (10 sources) Start: 07-30-2019 End: 09-05-2019 take 1 tablet by mouth twice daily Ticagrelor 90 mg tablet Discontinued 90 mg PO TWICE A DAY 60 11 September 05, 2019 3:14pm September 05, 2019 3:34pm Problems Active Problems Problem Classification Problem Date Documented Da te Episodic/Chronic Allergic reactions (2 sources) Irritant contact dermatitis due to plant; Translations: [Irritant contact dermatitis due to plants, except food] 04-24-2025 Episodic Cardiac and circulatory congenital anomalies (2 sources) Bicuspid aortic valve; Translations: [Bicuspid aortic valve] 07-05-2024 Chronic Coronary atherosclerosis and other heart disease (5 sources) Coronary atherosclerosis; Translations: [Atherosclerotic heart disease of council coronary artery without angina pectoris] 09-24-2020 Chronic Disorders of lipid metabolism (14 sources) Hyperlipidemia; Translations: [Hyperlipidemia, unspecified] Onset: 03-16-2011 03-16-2011 Chronic Essential hypertension (12 sources) Hypertensive disorder; Translations: [Essential hypertension] Onset: 03-23-2012 03-23-2012 Chronic Heart valve disorders (20 sources) Nonrheumatic aortic (valve) stenosis; Translations: [Heart valve replaced by other means] Onset: 12-10-2009 03-15-2016 Chronic Comment on above: 21 mm Omero Edw ards bioprosthetic aortic valve replacement in December 2009 Immunizations and screening for infectious disease (1 source) Encounter for immunization; Translations: [Encounter for immunization] Onset: 07-04-2025 Episodic Nonspecific chest pain (5 sources) Chest pain; Translations: [Chest pain, unspecified] 09-02-2019 Episodic Other circulatory disease (2 sources) Carotid bruit; Translations: [Other specified symptoms and signs involving the circulatory and respiratory systems] 06-12-2025 Episodic Other circulatory disease (1 source) Other specified symptoms and signs involving the circulatory and respiratory systems; Translations: [Other specified symptoms and signs involving the circulatory and respiratory systems] Onset: 07-22-2025 Episodic Other screening for suspected conditions (not mental disorders or infectious disease) (5 sources) Patient encounter status; Translations: [Encounter for screening for malignant neoplasm of colon] 07-27-2019 Episodic Residual codes; unclassified (5 sources) Obstructive sleep apnea syndrome; Translations: [Obstructive sleep apnea (adult) (pediatric)] 09-24-2020 Chronic Comment on above: Initial AHI 18, oziel ting with AutoPap 5-15 cmH2O Residual codes; unclassified (3 sources) Obstructive sleep apnea (adult) (pediatric); Translations: [Obstructive sleep apnea (adult)(pediatric)] Chronic Unclassified (2 sources) Replacement of aortic valve ; Translations: [Presence of prosthetic heart valve] Onset: 03-16-2011 03-15-2016 Unclassified (1 source) Screening for malignant neoplasm of colon ; Translations: [Encounter for screening for malignant neoplasm of colon] Onset: 07-17-2017 07-17-2017 Unclassified (3 sources) Long-term drug therapy; Translations: [Other marine oil terminal superintendent (current) drug therapy] Onset: 03-16-2011 03-16-2011 Past or Other Problems Problem Classification Problem Date Documented Da te Episodic/Chronic Conditions associated with dizziness or vertigo (4 sources) Dizziness and giddiness; Translations: [Dizziness and giddiness] Onset: 03-15-2016 03-15-2016 Episodic Coronary atherosclerosis and other heart disease (2 sources) Presence of coronary angioplasty implant and graft; Translations: [Percutaneous transluminal coronary angioplasty status] Onset: 09-19-2019 03-10-2023 Episodic Other aftercare (1 source) Other halfway (current) drug therapy; Translations: [Other marine oil terminal superintendent (current) drug therapy] Onset: 03-16-2011 03-16-2011 Episodic Other upper respiratory infections (3 sources) Upper respiratory infection; Translations: [Acute upper respiratory infection, unspecified] Onset: 10-12-2024 10-12-2024 Episodic Syncope (4 sources) Syncope and collapse; Translations: [Syncope and collapse] Onset: 03-15-2016 10-04-2016 Episodic Results Test Name Value Interpretation Reference Range Facility Carotid Duplex Ultrasoundon 07-14-2025 Carotid Duplex Ultrasound [facility] [address] [place] [id number] Carotid Duplex Ultrasound 07/14/25 0954 MR#: [id number] Acct: [id number] Name: EBONI IRWIN GENE Rep #: [id number] : 1955 69 From: Primitivo Pedro MD Attending Dr: ASHLEY Hernandez Status: SP [place] Ordering Dr: Nikki Cortes NP ESTIMATE CLERK-C Date: 07/14/25 Location: [facility] Sex: F C Admitted: Reason For Study Reason For Study: Rt Carotid Bruit Rt. Velocities/BP Lt. Velocities/BP Prox CCA 80/16 cm/sec. Prox CCA 93/22 cm/sec. Mid CCA 94/19 cm/sec. Mid CCA 85/27 cm/sec. Dist CCA 92/19 cm/sec. Dist CCA 61/15 cm/sec. Prox ICA 80/15 cm/sec. Prox ICA 69/21 cm/sec. Mid ICA 92/27 cm/sec. Mid ICA 72/23 cm/sec. Dist ICA 101/27 cm/sec. Dist ICA 70/26 cm/sec. Rt. ICA/CCA = 1.1. Lt. ICA/CCA = 0.8. Prox ECA 87/9 cm/sec. Prox ECA 78/13 cm/sec. Rt. Vert. 60/11 cm/sec. Lt. Vert. 47/10 cm/sec. Right Extracranial There is intimal thickening but no significant atherosclerotic plaque noted in the right common carotid artery. There is intimal thickening but no significant atherosclerotic plaque noted in the right internal carotid artery. There is no significant atherosclerotic plaque noted in the right external carotid artery. Antegrade flow is noted in the right vertebral artery. Left Extracranial There is intimal thickening but no significant atherosclerotic plaque noted in the left common carotid artery. There is intimal thickening but no significant atherosclerotic plaque noted in the left internal carotid artery. There is no significant atherosclerotic plaque noted in the left external carotid artery. Antegrade flow is noted in the left vertebral artery. Pre-steal waveform noted Lt Vert A. Procedure Carotid Duplex 92616. This is a Carotid Duplex examination using B-mode, color flow and specral Doppler. Exam performed in department. VL/Carotid Duplex Ultrasound Interpretation Summary No significant atherosclerotic plaque or stenosis noted in the internal carotid arteries bilaterally. Flow within the right verterbral artery is antegrade. The left vertebral artery waveform demonstrates a pre-steal waveform, suggestive of proximal stenosis or occlusion in the left subclavian artery. Clinical correlation is advised. Ordering Physician: Nikki Cortes Referring Physician: Irene Vergara Performed By: Teresa Wan, RENEE, RVT 07/14/251916 Date Primitivo Pedro MD CC: ASHLEY Cortes; Dr. Irene Vergara, DO Date Dictated: 07/14/25 0954 Date Transcribed: 07/14/251916 Corrugated Fastener Driver: Signed Normal [facility] Pulmonary Visit Reporton Pulmonary Visit Report [facility] [address] [place] [address] OFFICE VISIT Date of Service: 07/04/25 MR#: [id number] Acct: [id number] Name: EBONI IRWIN Rep #: [id number] : 1955 Provider: ASHLEY Augustine Age/Sex: 69/F Location: [facility] Status: Signed Assessment and Plan Assessment and Plan (1) ANDERS (obstructive sleep apnea): Status: Chronic Comment: Initial AHI 18, treating with AutoPap 5-15 cmH2O Plan: She is using and benefiting from Pap therapy. No indication for titration study at this time. Contact the office for any new or worsening symptoms in the meantime. Follow-up in 1 year. Flu vaccination provided today. Orders: Orders Influenza Immunization Today Z23 - Encounter for immunization Plan Details Additional Comments: Portions of this documentation have been copied and pasted from previous office visit notes to provide a cohesive continuity of the history. The note has been reviewed, edited, and updated, as necessary. This note was generated with [employer] dictation software. It may contain incorrect words, spelling, and punctuation that were not noted in checking the note before signing. Follow Up: 1 Year HPI 1 Y FU Chief Complaint: routine follow up HPI Comments Details: This patient presents to the office today for follow-up of her obstructive sleep apnea. She is ambulatory and on room air. She has not recently been seen in the ED or urgent care for any respiratory illness. She has not required any antibiotics or prednisone for any breathing problems. If you recall, she is a lifelong never smoker. She denies any difficulty with shortness of breath. She denies any cough, sputum production or hemoptysis. She denies any wheezing, chest tightness, chest pain or palpitations. She also denies any fever, chills or body aches. She wakes up feeling rested refreshed. She is not having difficulty with dry mouth or mask leaks. She denies excessive nocturia. She is not requiring naps and is not nodding off to sleep unintentionally. Compliance report for the past 30 days shows 100% compliance with average use of 7 hours and 47 minutes per night. Current setting is AutoPap 5 to 15 cm of water with pressure typically being utilized at 6.5 to 10.0 cm water. Residual AHI 3.2 events per hour. Leaks do not appear to be problematic. Intake Vital Signs 10/12/24 10:44 07/04/25 08:17 Height 5 ft 4 in 5 ft 4 in Weight: 131 lb BMI 22.4 BP 161/87 H Blood Pressure Location Lt brachial Position Sitting Respiration 18 Pulse 55 L Pulse Source Monitor Temp 97.3 F L Temperature Source Temporal Artery Pulse Oximetry (%) 99 Oxygen Delivery Method room air Intake Visit Reasons: 1 Y FU Foot Tender Required: No DME Vendor: [facility] Accompanied by: Self Is patient in pain?: No Allergies lisinopril Adverse Reaction (Mild, Verified 07/04/25 08:16) Dry Cough Medications ???Medication ???Instructions ???Recorded ???Confirmed ???Type aspirin 81 mg chewable tablet 81 mg PO MOWEFR HEART 03/10/23 History clopidogrel 75 mg tablet 75 mg PO DAILY #90 TABLETS 4 07/04/25 Rx atorvastatin 40 mg tablet 40 mg PO QHS #90 tabs 11/27/24 Rx candesartan 16 mg tablet 16 mg PO DAILY #90 TABLETS 5 07/04/25 Rx amoxicillin 500 mg tablet 2,000 mg (4 x 500 mg) PO ONCE PRN 04/28/25 07/04/25 Rx dental #4 tabs metoprolol succinate 50 mg See Rx Instructions .Route 5 07/04/25 Rx tablet,extended release 24 hr .COMPLEX #90 tabs alprazolam 0.25 mg tablet 0.25 mg PO QHS PRN 06/12/25 History buspirone 5 mg tablet 5 mg PO BID PRN 06/12/25 07/04/25 History Have you fallen in the past year?: No PFSH Medical History COVID-19 ( 06/2022) ANDERS (obstructive sleep apnea) Hyperlipemia Essential (primary) hypertension Bicuspid aortic valve Atherosclerosis of coronary artery of council heart without angina pectoris Non-rheumatic aortic stenosis Surgical History History of coronary artery stent placement (09/19/19) Lung nodule History of History of left heart catheterization (10/26/20) History of aortic valve replacement (12/2009) Family History Father Myocardial infarction Heart disease Brother Heart disease Social History Smoking Status: Never smoker alcohol intake: current alcohol intake frequency: a few times a month Alcohol type: wine substance use type: does not use caffeine: Yes Type: coffee Number of servings: 1 Review of Systems (more content not included)... Normal [facility] Bilirubin directOrdered By: Carmelo Wan on 06-12-2025 Bilirubin.direct [Mass/Vol] 0.28 mg/dL 0.00-0.30 [facility] Bilirubin, totalOrdered By: Carmelo Wan on 06-12-2025 Bilirubin [Mass/Vol] 0.68 mg/dL 0.00-1.30 [facility] Calculated very low density lipoprotein (VLDL) cholesterol measurementOrdered By: Carmelo Wan on 06-12-2025 Calculated very low density lipoprotein (VLDL) cholesterol measurement 16 mg/dL 5-40 [facility] Cardiology Visit Reporton Cardiology Visit Report [facility] [address] [place] [address] OFFICE VISIT Date of Service: 06/12/25 MR#: [id number] Acct: [id number] Name: EBONI IRWIN GENE Rep #: [id number] : 1955 Provider: ASHLEY cunha Age/Sex: 69/F Location: [facility] Status: Signed HPI HPI History of Present Illness Details: EBONI IRWIN, is a 69F who presents for a cardiovascular follow-up visit. She has a history of aortic valve disease/bicuspid aortic valve status post aortic valve replacement with a bioprosthetic valve in December 2009, hypertension, and hyperlipidemia. She presented to the hospital in July 2019 with chest discomfort she had abnormal troponins and underwent stress testing which demonstrated evidence of anterior ischemia. She underwent a cardiac catheterization which demonstrated a left dominant system, with a normal left main coronary artery, left anterior descending artery with 80% stenosis, first diagonal vessel with 70% stenosis, obtuse marginal branch with 50% stenosis, and a long right coronary artery with an 80% stenotic lesion. She also had collateral flow from right to left and preserved ejection fraction. She underwent angioplasty and stenting with a drug-eluting stent to the left anterior descending artery as well as the diagonal vessel. She had a staged procedure to her RCA in September 2019. She presented again in September after she underwent a stress test which demonstrated an abnormality at a high workload. She underwent a cardiac catheterization which demonstrated patent stents that had been previously placed. A repeat echocardiogram had demonstrated an ejection fraction of 60%, mild concentric hypertrophy no wall motion abnormalities and a peak mean gradient across the aortic valve of 41/24 mmHg. From a cardiac standpoint, the patient is doing well. She denies any palpitations, chest pain, pressure or heaviness. She denies SOB, Orthopnea, and PND. She does not have bleeding issues; no blood in urine, stool, or nosebleeds. She denies any decrease in energy level, myalgias, or claudication. She does not have edema, or sudden weight gain. She denies lightheadedness, dizziness, syncopal or near syncopal episodes, and headaches. She states that she recently ran 1 mile at [facility]. Intake Vital Signs 05/16/24 09:12 06/12/25 07:51 Height 5 ft 4 in 5 ft 4 in Weight: 131 lb BMI 22.4 BP 138/88 H Blood Pressure Location Lt brachial Position Sitting Respiration 18 Pulse 56 L Pulse Source Monitor Pulse Oximetry (%) 100 Intake Visit Reasons: 1 Y FU/MOVED FROM [facility] Foot Tender Required: No Is patient in pain?: No Allergies lisinopril Adverse Reaction (Mild, Verified 06/12/25 09:30) Dry Cough Medications ???Medication ???Instructions ???Recorded ???Confirmed ???Type aspirin 81 mg chewable tablet 81 mg PO MOWEFR HEART 03/10/2311/05 History clopidogrel 75 mg tablet 75 mg PO DAILY #90 TABLETS 4 06/12/25 Rx atorvastatin 40 mg tablet 40 mg PO QHS #90 tabs 11/27/2411/05 Rx candesartan 16 mg tablet 16 mg PO DAILY #90 TABLETS 5 06/12/25 Rx amoxicillin 500 mg tablet 2,000 mg (4 x 500 mg) PO ONCE PRN 04/28/25 06/12/25 Rx dental #4 tabs metoprolol succinate 50 mg See Rx Instructions .Route 5 06/12/25 Rx tablet,extended release 24 hr .COMPLEX #90 tabs alprazolam 0.25 mg tablet 0.25 mg PO QHS PRN 06/12/25 History buspirone 5 mg tablet 5 mg PO BID PRN 06/12/25 06/12/25 History Ejection fraction %: 70 Have you fallen in the past year?: No PFSH Medical History COVID-19 ( 06/2022) ANDERS (obstructive sleep apnea) Hyperlipemia Essential (primary) hypertension Bicuspid aortic valve Atherosclerosis of coronary artery of council heart without angina pectoris Non-rheumatic aortic stenosis Surgical History History of coronary artery stent placement (09/19/19) Lung nodule History of History of left heart catheterization (10/26/20) History of aortic valve replacement (12/2009) Family History Father Myocardial infarction Heart disease Brother Heart disease Social History Smoking Status: Never smoker alcohol intake: current alcohol intake frequency: a few times a month Alcohol type: wine substance use type: does not use caffeine: Yes Type: coffee Number of servings: 1 ROS Const Const: Negative for fatigue, weakness, headache(s) or frequent falls Eyes Eyes: Negative for blurry vision ENT ENT: Negative for headache(s), dizziness or Nosebleed/epistaxis Cardio Chest Pain: No Palpi (more content not included)... Normal [facility] LDL calc ser/plasOrdered By: Carmelo Wan on 06-12-2025 Cholesterol in LDL [Mass/Vol] 67 mg/dL [facility] Comment on above: Ddcqtarnqs=080-291 m g/dL & Higher Seae=935 mg/dL or greaterFriedwald Equation for LDL-C Laboratory - Chemistry and C hemistry - challengeOrdered By: Carmelo Wan on 06-12-2025 AST [Catalytic activity/Vol] 22 U/L <32 [facility] Lipid Profileon 06-12-2025 CHOL:HDL 2.45 Normal [facility] Comment on above: Performed By: #### L 500.3400, L500.4100 #### [facility] [address] [place], [address] Cholesterol [Mass/Vol] 140 mg/dL Normal <=200 [facility] Comment on above: Result Comment: Chol esterol level, Desirable <200 mg/dL Borderline high cholesterol 200-239 mg/dL High cholesterol >=240 mg/dL Recommendations of the NCEP Adult Treatment Panel for the following risk-cutoff thresholds for the [place] population. Performed By: #### L 500.3400, L500.4100 #### [facility] [address] [place], [address] Cholesterol in HDL [Mass/Vol] 57 mg/dL Normal [facility] Comment on above: Result Comment: Aylin onal Cholesterol Education Program (NCEP) guidelines: <40 mg/dL: Low HDL-cholesterol (major risk factor for CHD) >= 60 mg/dL: High HDL-cholesterol (negative risk factor for CHD) HDL-cholesterol is affected by a number of factors, e.g. smoking, exercise, hormones, sex and age. Performed By: #### L 500.3400, L500.4100 #### [facility] [address] [place], [address] Cholesterol in LDL [Mass/Vol] 67 mg/dL Normal [facility] Comment on above: Result Comment: Bord wzgmrd=467-037 mg/dL Higher Aapu=114 mg/dL or greater Friedwald Equation for LDL-C Performed By: #### L 500.3400, L500.4100 #### [facility] [address] [place], [address] Cholesterol in VLDL [Mass/Vol] 16 mg/dL Normal 5-40 [facility] Comment on above: Performed By: #### L 500.3400, L500.4100 #### [facility] [address] [place], [address] Triglyceride [Mass/Vol] 79 mg/dL Normal [facility] Comment on above: Result Comment: The drugs N-Acetylcysteine and Metamizole may falsely depress this assay. Normal range: <150 mg/dL Borderline High: 150-199 mg/dL High: 200-499 mg/dL Very High: >500 mg/dL Performed By: #### L 500.3400, L500.4100 #### [facility] [address] [place], [address] Liver Profileon 06-12-2025 Albumin [Mass/Vol] 4.3 g/dL Normal 3.4-4.8 [facility] Comment on above: Performed By: #### L 500.3400, L500.4100 #### [facility] [address] [place], [address] ALK PHOS 56 U/L Normal 35-104 [facility] Comment on above: Performed By: #### L 500.3400, L500.4100 #### [facility] [address] [place], [address] ALT [Catalytic activity/Vol] 16 U/L Normal <=34 [facility] Comment on above: Performed By: #### L 500.3400, L500.4100 #### [facility] [address] [place], [address] AST [Catalytic activity/Vol] 22 U/L Normal <=31 [facility] Comment on above: Performed By: #### L 500.3400, L500.4100 #### [facility] [address] [place], [address] Bilirubin [Mass/Vol] 0.68 mg/dL Normal 0.00-1.30 [facility] Comment on above: Performed By: #### L 500.3400, L500.4100 #### [facility] [address] [place], [address] Bilirubin.direct [Mass/Vol] 0.28 mg/dL Normal 0.00-0.30 [facility] Comment on above: Performed By: #### L 500.3400, L500.4100 #### [facility] [address] [place], [address] Globulin (S) [Mass/Vol] 2.8 g/dL Normal 2.2-4.2 [facility] Comment on above: Performed By: #### L 500.3400, L500.4100 #### [facility] [address] [place], [address] T PROT 7.0 g/dL Normal 5.9-8.4 [facility] Comment on above: Performed By: #### L 500.3400, L500.4100 #### [facility] [address] [place], [address] Screening total cholesterol/ high density lipoprotein (HDL) cholesterol ratioOrdered By: Carmelo Wan on 06-12-2025 Cholesterol.total/Chol esterol in HDL [Mass ratio] 2.45 {ratio} [facility] Serum globulin measurementOr dered By: Carmelo Wan on 06-12-2025 Globulin (S) [Mass/Vol] 2.8 g/dL 2.2-4.2 [facility] Serum or plasma alanine cutler otransferase (ALT) measurementOrdered By: Carmelo Wan on 06-12-2025 ALT [Catalytic activity/Vol] 16 U/L <35 [facility] Serum or plasma albumin renard urement (mass/volume)Ordered By: Carmelo Wan on 06-12-2025 Albumin [Mass/Vol] 4.3 g/dL 3.4-4.8 [facility] Serum or plasma alkaline john sphatase measurementOrdered By: Carmelo Wan on 06-12-2025 ALP [Catalytic activity/Vol] 56 U/L 35-104 [facility] Serum or plasma cholesterol in HDL measurement (mass/volume)Ordered By: Carmelo Wan on 06-12-2025 Cholesterol in HDL [Mass/Vol] 57 mg/dL >40 [facility] Comment on above: National Cholesterol Education Program (NCEP) guidelines:<40 mg/dL: Low HDL-cholesterol (major risk factor for CHD)>= 60 mg/dL: High HDL-cholesterol (negative risk factor for CHD)HDL-cholesterol is affected by a number of factors, e.g. smoking, exercise, hormones, sex and age. Serum or plasma cholesterol measurement (mass/volume)Ordered By: Carmelo Wan on 06-12-2025 Cholesterol [Mass/Vol] 140 mg/dL <201 [facility] Comment on above: Cholesterol level, D esirable <200 mg/dLBorderline high cholesterol 200-239 mg/dLHigh cholesterol >=240 mg/dLRecommendations of the NCEP Adult Treatment Panel for the following risk-cutoff thresholds for the [place] population. Total proteinOrdered By: Wesley Wan on 06-12-2025 Protein [Mass/Vol] 7.0 g/dL 5.9-8.4 [facility] Triglycerides measurementOrd ered By: Carmelo Wan on 06-12-2025 Triglyceride [Mass/Vol] 79 mg/dL <199 [facility] Comment on above: The drugs N-Acetylcy steine and Metamizole may falsely depress this assay. Normal range: <150 mg/dLBorderline High: 150-199 mg/dLHigh: 200-499 mg/dLVery High: >500 mg/dL Urgent Care Visit Reporton 0 04-24-2025 Urgent Care Visit Report [facility] [address] , [address] [place] [address] OFFICE VISIT Date of Service: 04/24/25 MR#: [id number] Acct: [id number] Name: EBONI IRWIN GENE Rep #: [id number] : 1955 Provider: SILVA Orta Age/Sex: 69/F Location: [facility] Status: Signed Intake Vital Signs 10/12/24 10:44 04/24/25 10:34 Height 5 ft 4 in Weight: 136 lb 2 oz BMI 23.3 BP 116/70 134/72 H Blood Pressure Location Lt brachial Lt brachial Position Sitting Sitting Respiration 12 14 Pulse 66 52 L Pulse Source NIBP NIBP Temp 98.2 F 98.1 F Temp Source Oral Oral Pulse Oximetry (%) 98 100 Oxygen Delivery Method room air room air Intake Visit Reasons: CONCERN FOR SHINGLES Chief Complaint: rash Foot Tender Required: No Is patient in pain?: No Allergies lisinopril Adverse Reaction (Mild, Verified 04/24/25 10:34) Dry Cough Is last menstrual period known: No Post menopausal: Yes Patient : No Have you fallen in the past year?: No Nurse's Note: rash to chin, bilateral neck, right abdomen, left breast x 6 days with itching and irritation. pt concern for shingles [facility] Medical History (Updated 04/24/25 @ 11:46 by SILVA Cruz) COVID-19 ( 06/2022) ANDERS (obstructive sleep apnea) Hyperlipemia Essential (primary) hypertension Bicuspid aortic valve Atherosclerosis of coronary artery of council heart without angina pectoris Non-rheumatic aortic stenosis Surgical History History of coronary artery stent placement (09/19/19) Lung nodule History of History of left heart catheterization (10/26/20) History of aortic valve replacement (12/2009) Family History Father Myocardial infarction Heart disease Brother Heart disease Social History Smoking Status: Never smoker alcohol intake: current alcohol intake frequency: a few times a month Alcohol type: wine substance use type: does not use caffeine: Yes Type: coffee Number of servings: 1 HPI HPI Chief Complaint: rash Details: EBONI IRWIN, is a 69 F who presents to the office today for complaint of a rash to the neck, abdomen and hands. Patient does state being concern for shingles however has had no contact with people with shingles recently. She also states that she does have issue with poison elmer rashes in the past. Patient denies any new medications, foods or environmental exposures. No other associated symptoms or alleviating/aggravat ing factors. ROS Const Constitutional: No other (6 system ROS completed with pertinent findings in HPI otherwise normal.) Exam Const General: cooperative and healthy appearing [facility] Head: normocephalic and atraumatic Ears: hearing grossly normal bilaterally Nose: external nose normal Face and sinus: normal facial exam and face symmetric Mouth: oral mucosae normal Resp Effort Inspection: normal respiratory effort Skin Other: Grouped vesicular lesions to the neck and abdomen. Neuro General: patient alert Psych Appearance: grossly normal Mental Status: mental status grossly normal Coding Level of Care Code Off vis,new,level 3 Diagnoses Irritant contact dermatitis due to plant L24.7 Assessment and Plan Assessment and Plan (1) Irritant contact dermatitis due to plant: Status: Acute Medications: New prednisone Take 4 tabs once daily days 1-3 3 tabs once daily days 4-6 2 tabs once daily days 7-9 and 1 tab once daily days 10-12. 10 mg PO DIRECTED 12 days 30 tabs 0RF L25.9 - Unspecified contact dermatitis, unspecified cause Plan Prednisone taper as prescribed today. Encouraged to get plenty of rest, drink lots of clear liquids, and use Benadryl for comfort. Patient also educated on other symptomatic management techniques. To be seen in 7-10 days if no improvement; sooner if worsening of symptoms. Patient advised of potential red flags and when appropriate to report to the ED. Patient verbalized understanding and agreement with all the above. Clinical Quality Measures Falls Risk Screening/Assistive Devices Have you fallen in the past year?: No 04/24/25 1147 Date Gerard Monteiro Signature: Date (if applicable) CC: Normal [facility] Urgent Care Visit Reporton 0 10-12-2024 Urgent Care Visit Report [facility] [address], [address] [place] [address] OFFICE VISIT Date of Service: 10/12/24 MR#: [id number] Acct: [id number] Name: EBONI IRWIN GENE Rep #: [id number] : 1955 Provider: ASHLEY cespedes Age/Sex: 69/F Location: [facility] Status: Signed Intake Vital Signs 05/16/24 09:12 10/12/24 08:36 10/12/24 10:44 Height 5 ft 4 in 5 ft 4 in 5 ft 4 in Weight: 136 lb 2 oz BMI 23.3 BP 116/70 Blood Pressure Location Lt brachial Position Sitting Respiration 12 Pulse 66 Pulse Source NIBP Temp 98.2 F Temp Source Oral Pulse Oximetry (%) 98 Oxygen Delivery Method room air Intake Visit Reasons: SINUS/EAR PAIN/COUGH Allergies lisinopril Adverse Reaction (Mild, Verified 10/12/24 10:38) Dry Cough Medications ???Medication ???Instructions ???Recorded ???Confirmed ???Type melatonin 3 mg tablet 3 mg PO HS PRN Sleep 10/04/19 09/02/01 History aspirin 81 mg chewable tablet 81 mg PO MOWEFR HEART 03/10/2310/05 History lorazepam 0.5 mg tablet 0.5 mg PO QHS PRN 03/10/23 4 History atorvastatin 40 mg tablet 40 mg PO QHS #90 tabs 12/08/2310/05 Rx candesartan 16 mg tablet See Rx Instructions .Route 4 10/12/24 Rx .COMPLEX #90 tabs metoprolol succinate 50 mg See Rx Instructions .Route 4 10/12/24 Rx tablet,extended release 24 hr .COMPLEX #90 tabs clopidogrel 75 mg tablet 75 mg PO DAILY #90 TABLETS 4 10/12/24 Rx amoxicillin 500 mg tablet 2,000 mg (4 x 500 mg) PO ONCE PRN 10/12/24 10/12/24 Rx dental #4 tabs amoxicillin 875 mg-potassium 1 tab PO BID 7 days #14 tabs 10/1210/12/24 Rx clavulanate 125 mg tablet Have you fallen in the past year?: No PFSH Medical History (Updated 10/12/24 @ 11:20 by Carmelo Wan ESTIMATE CLERK, ESTIMATE CLERK-C) COVID-19 ( 06/2022) ANDERS (obstructive sleep apnea) Hyperlipemia Essential (primary) hypertension Bicuspid aortic valve Atherosclerosis of coronary artery of council heart without angina pectoris Non-rheumatic aortic stenosis Surgical History History of coronary artery stent placement (09/19/19) Lung nodule History of History of left heart catheterization (10/26/20) History of aortic valve replacement (12/2009) Family History Father Myocardial infarction Heart disease Brother Heart disease Social History Smoking Status: Never smoker alcohol intake: current alcohol intake frequency: a few times a month Alcohol type: wine substance use type: does not use caffeine: Yes Type: coffee Number of servings: 1 HPI HPI Details: EBONI IRWIN, is a 69 F who presents to the office today for cough and drainage for 10 days. She has been taking OTC medications with minimal relieve. ROS Const Constitutional: Positive for body ache, chills, fatigue and headache(s) (with cough); No fever(s), abnormal sleep pattern or change in appetite Eyes Eyes: No blurry vision, change in vision, double vision, irritation, discharge, vision loss, dry eyes, bulging eyes, floaters, visual disturbances, eye pain, Light sensitivity, spots in vision, tunnel vision or other ENT ENT: Positive for ear or mastoid pain (feel something- left>right), nasal congestion, nasal discharge (clear, green, ), post nasal drip, headache(s) (with cough) and sore throat (Scratchy- resolved); No ear discharge, ear pressure, tinnitus, dizziness/vertigo, nosebleed/epistaxis, nose pain, sinus pressure, sinus pain, facial pain, dental pain, difficulty swallowing, bad breath, hoarseness, lip swelling, mouth lesions, mouth pain, neck pain, tongue swelling or throat swelling Resp Respiratory: Positive for cough; No change in phlegm color, chest congestion, hemoptysis, pain on inspiration, shortness of breath, pain with cough, stridor or wheezing Cardio Cardiology: No chest pain at rest, chest pain with exertion, shortness of breath, dyspnea on exertion or lightheadedness Gastro GI: No abdominal pain, change in bowel habits, constipation, diarrhea, difficulty swallowing, nausea/dyspepsia or vomiting Genitourinary-Female : No burning urination or urinary frequency Musc Musculoskeletal: No joint pain or neck pain Skin Skin: No rash Neuro Neurology: Positive for headache(s) (with cough); No visual disturbances Psych Psychiatric: No abnormal sleep pattern and No change in appetite Endo Endocrine: Positive for fatigue Aller/Imm Allergy/Immunologic: No lip swelling, throat swelling, tongue swelling or wheezing Exam Const General: cooperative, healthy appearing, comfortable and no acute distress Orientation: alert, awake and oriented x3 [facility] (more content not included)... Normal [facility] Absolute lymphocyte countOrd ered By: Irene Vergara on 03-22-2023 Lymphocytes Auto (Unsp spec) [#/Vol] 2.01 10*3/uL 0.83-4.51 [facility] Basophil percentageOrdered B y: Irene Vergara on 03-22-2023 Basophils/100 WBC (Bld) 0.6 % 0-1 [facility] Bilirubin [Mass/Vol] 0.80 mg/dL 0.20-1.00 [facility] Comment on above: For patients on eltr ombopag therapy, use of Dimension [place] TBIL is not recommended. Chloride [Moles/Vol] 110 mmol/L 98-107 [facility] Eosinophils/100 WBC (Bld) 0.2 % 0-5 [facility] Glucose [Mass/Vol] 88 mg/dL 74-106 [facility] Neutrophils (Bld) [#/Vol] 2.6 10*3/uL 2.0-7.7 [facility] Neutrophils/100 WBC (Bld) 50.9 % 47-70 [facility] Potassium [Moles/Vol] 3.8 mmol/L 3.5-5.1 [facility] Protein [Mass/Vol] 7.4 g/dL 6.4-8.2 [facility] Sodium [Moles/Vol] 139 mmol/L 136-145 [facility] WBC (Bld) [#/Vol] 5.1 10*3/uL 4.4-11.0 [facility] Blood erythrocytes count (nu mber/volume)Ordered By: Irene Vergara on 03-22-2023 RBC (Bld) [#/Vol] 4.81 10*6/uL 4.2-5.4 [facility] Blood hemoglobin measurement (mass/volume)Ordered By: Irene Vergara on 03-22-2023 Hemoglobin (Bld) [Mass/Vol] 14.4 g/dL 12.0-15.0 [facility] Blood lymphocytes/100 leukoc ytesOrdered By: Irnee Vergara on 03-22-2023 Lymphocytes/100 WBC (Bld) 39.6 % 19-41 [facility] Blood monocytes/100 leukocyt esOrdered By: Irene Vergara on 03-22-2023 Monocytes/100 WBC (Bld) 8.7 % 0-10 [facility] Blood platelet mean volumeOr dered By: Irene Vergara on 03-22-2023 Platelet mean volume (Bld) [Entitic vol] 9.7 fL 6.2-12.0 [facility] Determination of erythrocyte mean corpuscular volume (MCV)Ordered By: Irene Vergara on 03-22-2023 MCV (RBC) [Entitic vol] 89.6 fL 81-99 [facility] Hematocrit Auto (Bld) [Volum e fraction]Ordered By: Irene Vergara on 03-22-2023 Hematocrit (Bld) [Volume fraction] 43.1 % 37-47 [facility] - Chemistry and C hemistry - challengeOrdered By: Irene Vergara on 03-22-2023 ALP [Catalytic activity/Vol] 55 U/L 45-117 [facility] ALT [Catalytic activity/Vol] 27 U/L 13-56 [facility] CO2 [Moles/Vol] 27.0 mmol/L 21.0-32.0 [facility] Globulin (S) [Mass/Vol] 3.6 g/dL 2.2-4.2 [facility] Urea nitrogen/Creatinine [Mass ratio] 21.5 mg/mg 10-20 [facility] - Hematology and Cell countsOrdered By: Irene Vergara on 03-22-2023 Erythrocyte distribution width (RBC) [Entitic vol] 40.1 fL 35.1-43.9 [facility] Erythrocyte distribution width (RBC) [Ratio] 12.2 % 11.6-14.6 [facility] Immature granulocytes/100 WBC (Bld) 0.000 % 0.0-0.9 [facility] Comment on above: IG% - Immature Granu locytes (promyelocytes, myelocytes and metamyelocytes) > 1% indicates that a LEFT SHIFT is Present. MCH (RBC) [Entitic mass] 29.9 pg 27.0-32.0 [facility] Nucleated RBC/100 WBC (Bld) [Ratio] 0 % 0-5 [facility] MCHC Auto (RBC) [Mass/Vol]Or dered By: Irene Vergara on 03-22-2023 MCHC (RBC) [Mass/Vol] 33.4 g/dL 32-36 [facility] No Panel InformationOrdered By: Irene Vergara on 03-22-2023 Estimated GFR (MDRD) Amer 73 mL/min >60 [facility] Comment on above: GFR Calc Estimated GFR (MDRD) Non-Af Amer 61 mL/min >60 [facility] Comment on above: Non- GFR Calc Platelets bldOrdered By: Pavithra Vergara on 03-22-2023 Platelets (Bld) [#/Vol] 203 10*3/uL 150-450 [facility] Serum or plasma albumin renard urement (mass/volume)Ordered By: Irene Vergara on 03-22-2023 Albumin [Mass/Vol] 3.8 g/dL 3.2-5.0 [facility] Serum or plasma albumin/glob ulin mass ratioOrdered By: Irene Vergara on 03-22-2023 Albumin/Globulin [Mass ratio] 1.1 {ratio} 0.9-2.4 [facility] Serum or plasma calcium renard urement (mass/volume)Ordered By: Irene Vergara on 03-22-2023 Calcium [Mass/Vol] 9.5 mg/dL 8.5-10.1 [facility] Serum or plasma creatinine m easurement (mass/volume)Ordered By: Irene Vergara on 03-22-2023 Creatinine [Mass/Vol] 0.98 mg/dL 0.55-1.02 [facility] Comment on above: The validity of the calculated GFR & GFRAA in patients over 70 years has not been determined. Clinical correlation is essential. Serum or plasma urea nitroge n measurement (mass/volume)Ordered By: Irene Vergara on 03-22-2023 Urea nitrogen [Mass/Vol] 21 mg/dL 7-18 [facility] Thin prep Papanicolaou smear with manual screeningOrdered By: Irene Vergara on 03-22-2023 Thin prep Papanicolaou smear with manual screening 20 U/L 15-37 [facility] Thin prep Papanicolaou smear with manual screening 2 5-15 [facility] Office Visiton 04-11-2017 Documentation of current medications (procedure) Done Invalid Interpretation Code [facility] Work Phone: Fall risk assessment Fall risk assessment Invali d Interpretation Code [place] [employer] Work Phone: [phone] Protein mass conc Done [place] [employer] Work Phone: [phone] Clinical Lists Update: Pre04-05-2017 Left ventricular Ejection fraction 65 % Invalid Interpretation Code [place] [employer] Work Phone: [phone] Clinical Lists Update: Pre10-27-2016 Cholesterol 204 mg/dL High [place] [employer] Work Phone: [phone] HDL Cholesterol 55 mg/dL Invalid Interpretation Code [facility] Work Phone: [phone] LDL Cholesterol 126 mg/dL Invalid Interpretation Code [place] [employer] Work Phone: [phone] Triglyceride 113 mg/dL Invalid Interpretation Code [place] [employer] Work Phone: [phone] very low density lipoproteins 23 mg/dL Invalid Interpretation Code [facility] Work Phone: [phone] Office Visit: [facility] 10-04-19 17 Documentation of current medications (procedure) Done Invalid Interpretation Code [facility] Work Phone: [phone] Clinical Lists Update: Prelo environmental construction engineer 02-18-2016 Anion gap 9 mmol/L Invalid Interpretation Code [facility] Work Phone: [phone] Anion gap molar conc 9 mmol/L [facility] Work Phone: [phone] BUN/Creatinine Ratio 15.6 mg/mg Invalid Interpretation Code [facility] Work Phone: [phone] Calcium 9.7 mg/dL Invalid Interpretation Code [facility] Work Phone: [phone] Chloride 107 mmol/L Invalid Interpretation Code [facility] Work Phone: [phone] CO2 26 mmol/L Invalid Interpretation Code [facility] Work Phone: [phone] CO2 ppres (BldV) 26 mmol/L [facility] Work Phone: [phone] Creatinine 0.96 mg/dL Invalid Interpretation Code [facility] Work Phone: [phone] Glucose 117 mg/dL Invalid Interpretation Code [facility] Work Phone: [phone] Glucose mass conc 117 mg/dL Invalid Interpretation Code [facility] Work Phone: [phone] Hematocrit (HCT) 46.1 % Invalid Interpretation Code [facility] Work Phone: [phone] Hematocrit Volume Fraction (Bld) 46.1 % [facility] Work Phone: [phone] Hemoglobin (HGB) 15.5 g/dL High [facility] Work Phone: [phone] Platelets 212 10*3/mm3 Invalid Interpretation Code [facility] Work Phone: [phone] Platelets #/vol (Bld) 212 10*3/mm3 [facility] Work Phone: [phone] Potassium 3.9 mmol/L Invalid Interpretation Code [facility] Work Phone: [phone] Sodium 142 mmol/L Invalid Interpretation Code [facility] Work Phone: [phone] Urea nitrogen 15 mg/dL Invalid Interpretation Code [facility] Work Phone: [phone] Office Visiton 03-24-2015 cardiac risk group B Invalid Interpretation Code [facility] Work Phone: [phone] General cardiovascular disease 10Y risk [#] [place].D'Humastangela 13 % Invalid Interpretation Code [facility] Work Phone: [phone] Tobacco smoking status NHIS Never smoker [facility] Work Phone: [phone] Tobacco use CPHS Never smoker Invalid Interpretation Code [facility] Work Phone: [phone] Lab Report: BMPon 07-30-2014 eGFR (non-black) 96 mL/min/{1.73_m2} Normal >60 [facility] Work Phone: [phone] eGFR (non-black) 79 mL/min/{1.73_m2} Normal >60 [facility] Work Phone: [phone] GFRAA 96 mL/min Normal >60 [facility] Work Phone: [phone] Lab Report: T4Fon 07-30-2014 GE use only - for LinkLogic import when terms are not otherwise specified 1.10 ng/dL Normal 0.76-1.46 [facility] Work Phone: [phone] T4F 1.10 ng/dL Normal 0.76-1.46 [facility] Work Phone: [phone] Lab Report: TSHon 07-30-2014 Thyroid stimulating hormone (TSH) 1.62 u[iU]/mL Normal 0.358-3.74 [facility] Work Phone: [phone] External Other: Preferred Me thod of Contacton 03-25-2014 methcontact secmsg Invalid Interpretation Code [facility] Work Phone: [phone] Patient's prefered method of contact secmsg Invalid Interpretation Code [facility] Work Phone: [phone] Clinical Lists Update: Prelo environmental construction engineer 08-21-2011 Erythrocytes (RBC) 5.06 10*6/uL Invalid Interpretation Code [facility] Work Phone: [phone] RBC #/vol (Bld) 5.06 10*6/uL [facility] Work Phone: [phone] WBC #/vol (Bld) 5.6 10*3/uL [facility] Work Phone: [phone] WBC (Leukocytes) 5.6 10*3/uL Invalid Interpretation Code [facility] Work Phone: [phone] Vital Signs Date Time Vital Sign Value Performing Clinician [facility] 06-12-2025 07:51-0400 Body mass index (BMI) [Ratio] 22.4 kg/m2 Dr. Irene Vergara DO Work Phone: [facility] 06-12-2025 07:51-0400 Body weight 59.[address] Irene Vergara DO Work Phone: [facility] 06-12-2025 07:51-0400 Diastolic blood pressure 88 mm[Hg] Dr. Irene Vergara DO Work Phone: [facility] 06-12-2025 07:51-0400 Heart rate 56 /min Dr. Irene Vergara DO Work Phone: [facility] 06-12-2025 07:51-0400 Respiratory rate 18 /min Dr. Irene Vergara DO Work Phone: [facility] 06-12-2025 07:51-0400 SaO2% (BldA) [Mass fraction] 100 % Dr. Irene Vergara DO Work Phone: [facility] 06-12-2025 07:51-0400 Systolic blood pressure 138 mm[Hg] Dr. Irene Vergara DO Work Phone: [facility] 04-24-2025 10:34-0400 Body temperature 98.1 [degF] Dr. Irene Vergara DO Work Phone: [facility] 04-24-2025 10:34-0400 Diastolic blood pressure 72 mm[Hg] Dr. Irene Vergara DO Work Phone: [facility] 04-24-2025 10:34-0400 Heart rate 52 /min Dr. Irene Vergara DO Work Phone: [facility] 04-24-2025 10:34-0400 Respiratory rate 14 /min Dr. Irene Vergara DO Work Phone: [facility] 04-24-2025 10:34-0400 SaO2% (BldA) [Mass fraction] 100 % Dr. Irene Vergara DO Work Phone: [facility] 04-24-2025 10:34-0400 Systolic blood pressure 134 mm[Hg] Dr. Irene Vergara DO Work Phone: [facility] 03-13-2023 11:25-0400 Body height 162.[address] Irene Vergara Work Phone: [facility] 03-13-2023 11:21-0400 Body mass index (BMI) [Ratio] 23 kg/m2 Dr. Irene Vergara Work Phone: [facility] 03-13-2023 11:21-0400 Body temperature 97.2 [degF] Dr. Irene Vergara Work Phone: [facility] 03-13-2023 11:21-0400 Body weight 60.[address] Irene Vergara Work Phone: [facility] 03-13-2023 11:21-0400 Diastolic blood pressure 102 mm[Hg] Dr. Irene Vergara Work Phone: [facility] 03-13-2023 11:21-0400 Heart rate 62 /min Dr. Irene Vergara Work Phone: [facility] 03-13-2023 11:21-0400 Respiratory rate 17 /min Dr. Irene Vergara Work Phone: [facility] 03-13-2023 11:21-0400 SaO2% (BldA) [Mass fraction] 98 % Dr. Irene Vergara Work Phone: [facility] 03-13-2023 11:21-0400 Systolic blood pressure 193 mm[Hg] Dr. Irene Vergara Work Phone: [facility] 03-10-2023 11:31-0400 Body mass index (BMI) [Ratio] 22.8 kg/m2 Dr. Irene Vergara Work Phone: [facility] 03-10-2023 11:31-0400 Body weight 60.[address] Irene Vergara Work Phone: [facility] 03-10-2023 11:31-0400 Diastolic blood pressure 89 mm[Hg] Dr. Irene Vergara Work Phone: [facility] 03-10-2023 11:31-0400 Heart rate 64 /min Dr. Irene Vergara Work Phone: [facility] 03-10-2023 11:31-0400 Respiratory rate 16 /min Dr. Irene Vergara Work Phone: [facility] 03-10-2023 11:31-0400 Systolic blood pressure 156 mm[Hg] Dr. Irene Vergara Work Phone: [facility] 04-06-2022 05:54-0400 Body height 162.[address] Irene Vergara Work Phone: [facility] Work Phone: 04-06-2022 05:54-0400 Body mass index (BMI) [Ratio] 23.1 kg/m2 Dr. Irene Vergara Work Phone: [facility] Work Phone: 04-06-2022 05:54-0400 Body temperature 98.5 [degF] Dr. Irene Vergara Work Phone: [facility] Work Phone: 04-06-2022 05:54-0400 Body weight 61.[address] Irene Vergara Work Phone: [facility] Work Phone: 04-06-2022 05:54-0400 Diastolic blood pressure 80 mm[Hg] Dr. Irene Vergara Work Phone: [facility] Work Phone: 04-06-2022 05:54-0400 Heart rate 60 /min Dr. Irene Vergara Work Phone: [facility] Work Phone: 04-06-2022 05:54-0400 Respiratory rate 17 /min Dr. Irene Vergara Work Phone: [facility] Work Phone: 04-06-2022 05:54-0400 SaO2% (BldA) [Mass fraction] 99 % Dr. Irene Vergara Work Phone: [facility] Work Phone: 04-06-2022 05:54-0400 Systolic blood pressure 165 mm[Hg] Dr. Irene Vergara Work Phone: [facility] Work Phone: 04-11-2017 09:44-0400 BMI (Body Mass Index) 22.66 kg/m2 [facility] Work Phone: 04-11-2017 09:44-0400 BP Diastolic 72 mm[Hg] Viktoriya Beth [facility] Work Phone: 04-11-2017 09:44-0400 BP Systolic 120 mm[Hg] Viktoriya Beth [facility] Work Phone: 04-11-2017 09:44-0400 Height 162.56 cm Viktoriya [facility] Work Phone: 04-11-2017 09:44-0400 Pulse (Heart Rate) 76 /min Viktoriya Beth [facility] Work Phone: 04-11-2017 09:44-0400 Respiratory Rate 20 /min Viktoriya Beth [facility] Work Phone: 04-11-2017 09:44-0400 Weight 59.88 kg Viktoriya Beth [facility] Work Phone: 10-04-2016 07:24-0500 BMI (Body Mass Index) 23.46 kg/m2 Nadia Krueger RN [facility] Work Phone: 10-04-2016 07:24-0500 BP Diastolic 70 mm[Hg] Nadia Krueger RN [facility] Work Phone: 10-04-2016 07:24-0500 BP Systolic 110 mm[Hg] Nadia Krueger RN [facility] Work Phone: 10-04-2016 07:24-0500 BSA (Body Surface Area) 1.67 m2 Nadia Krueger RN [facility] Work Phone: 10-04-2016 07:24-0500 Height 162.56 cm Nadia Krueger RN [facility] Work Phone: 10-04-2016 07:24-0500 Pulse (Heart Rate) 93 /min Nadia Krueger RN [facility] Work Phone: 10-04-2016 07:24-0500 Pulse Oximetry 98 % Nadia Krueger RN [facility] Work Phone: 10-04-2016 07:24-0500 Respiratory Rate 18 /min Nadia Krueger RN [facility] Work Phone: 10-04-2016 07:24-0500 Weight 62.01 kg Nadia Krueger RN [facility] Work Phone: 03-24-2015 11:05-0400 BP Diastolic 97 mm[Hg] Nadia Krueger RN [facility] Work Phone: 03-24-2015 11:05-0400 BP Systolic 160 mm[Hg] Nadia Krueger RN [facility] Work Phone: Encounters Encounter Date Encounter Type Care Provider Facility Start: 07-15-2025 ambulatory Nikki Cortes NP Facili ty:[facility] Start: 07-14-2025 End: 07-14-2025 ambulatory Nikki Cortes NP Facility:[facility] Start: 07-04-2025 End: 07-04-2025 ambulatory Irene Vergara Facility:[facility] Start: 06-12-2025 End: 06-12-2025 Patient encounter procedure Nikki Cortes ESTIMATE CLERK-C -Laboratory Work Phone: Start: 06-12-2025 End: 06-12-[address] Irene Vergara DO Work Phone: [facility] Start: 06-12-2025 End: 06-12-2025 ambulatory Nikki Cortes NP Facility:[facility] Start: 04-24-2025 End: 04-24-2025 Patient encounter procedure Gerard Antonio PR [facility] Work Phone: Start: 04-24-2025 End: 04-24-[address] Irene Vergara DO Work Phone: -[facility] Start: 10-12-2024 End: 10-12-2024 ambulatory Carmelo Wan ESTIMATE CLERK Facility:[facility] Start: 06-28-2023 End: 06-28-[address] Irene Vergara Work Phone: [facility] Work Phone: Start: 06-28-2023 End: 06-28-[address] Irene Vergara Work Phone: [facility]Outpatient Breast [facility] Work Phone: Start: 03-22-2023 End: 03-22-[address] Irene Vergara Work Phone: [facility] Work Phone: Start: 03-22-2023 End: 03-22-[address] Irene Vergara Work Phone: [facility]-Laboratory Work Phone: Start: 03-13-2023 End: 03-13-[address] Irene Vergara Work Phone: [facility] Medicine [facility] Work Phone: Start: 03-10-2023 End: 03-10-[address] Irene Vergara Work Phone: [facility] Work Phone: Start: 06-27-2022 End: 06-27-[address] Irene Vergara Work Phone: [facility] Work Phone: Start: 06-27-2022 End: 06-27-[address] Irene Vergara Work Phone: [facility]-Outpatient Breast Imaging Start: 04-06-2022 End: 04-06-[address] Irene Vergara Work Phone: [facility]-Pulmonary Medicine [facility] Procedures Date Procedure Procedure Detail Performing Clinician Start: 06-28-2023 Screening mammography Abdon Vergara Work Phone: Start: 06-27-2022 Screening mammography D joselito Vergara Work Phone: Start: 09-19-2019 History of placement of stent for coronary artery disease History of coronary artery stent placement Nikki Cortes ESTIMATE CLERKDedrickC Comment on above: PCI-JOYA-Mid LAD w/ 2 .5 x 24 mm Synergy and JOYA-D1 w/ 2.5 x 12 mm Synergy Stent 07/29/19; MUY-PFH-Haqf RCA w/ 2.5 x Synergy Stent 09/19/2019 Start: 10-04-2016 End: 10-04-2016 REAGAN Whitfield PA-C Work Phone: Start: 10-04-2016 End: 10-04-2016 Follow Up Appt 6 months Nery Whitfield PA-C Work Phone: Start: 10-04-2016 End: 10-04-2016 REAGAN Whitfield PA-C Work Phone: Start: 10-04-2016 End: 10-04-2016 Follow Up Appt 6 months Nery Whitfield PA-C Work Phone: Start: 03-30-2016 End: 09-28-2016 Follow Up Appt 6 months Chpaito Avina Start: 03-30-2016 End: 09-28-2016 HENNA Jackson MD Start: 03-30-2016 End: 09-28-2016 Follow Up Appt 6 months Chapito Avina Start: 03-30-2016 End: 09-28-2016 HENNA Jackson MD Start: 03-24-2015 End: 03-24-2015 REAGAN Jackson MD Start: 03-24-2015 End: 03-25-2015 Documentation of current medications Bryon Jackson MD Start: 03-24-2015 End: 03-24-2015 Follow Up Appt 1 year Bryon Jackson MD Start: 03-24-2015 End: 03-24-2015 REAGAN Jackson MD Start: 03-24-2015 End: 03-25-2015 Documentation of current medications Bryon Jackson MD Start: 03-24-2015 End: 03-24-2015 Follow Up Appt 1 year Bryon Jackson MD Start: 03-25-2014 End: 03-28-2014 *BMP Bryon Jackson MD Start: 03-25-2014 End: 03-25-2014 REAGAN Jackson MD Start: 03-25-2014 End: 03-31-2014 Echocardiography Bryon Jackson MD Start: 03-25-2014 End: 03-25-2014 Follow Up Appt 1 year Bryon Jackson MD Start: 03-25-2014 End: 03-28-2014 *BMP Bryon Jackson MD Start: 03-25-2014 End: 03-25-2014 REAGAN Jackson MD Start: 03-25-2014 End: 03-31-2014 Echocardiography Bryon Jackson MD Start: 03-25-2014 End: 03-25-2014 Follow Up Appt 1 year Bryon Jackson MD Start: 03-26-2013 End: 03-24-2015 REAGAN Jackson MD Start: 03-26-2013 End: 03-24-2015 Follow Up Appt 1 year Bryon Jackson MD Start: 03-26-2013 End: 03-24-2015 REAGAN Jackson MD Start: 03-26-2013 End: 03-24-2015 Follow Up Appt 1 year Bryon Jackson MD Start: 03-23-2012 End: 03-23-2012 Follow Up Appt 1 year Bryon Jackson MD Start: 03-23-2012 End: 03-23-2012 Follow Up Appt 1 year Bryon Jackson MD Start: 03-16-2011 Replacement of aorti c valve Aortic valve replacement Viktoriya Beth Plan of Treatment Date Care Activity Detail Author Start: 04-11-2018 End: 04-11-2018 Appointment Appointment [facility] Work Phone: Start: 08-25-2017 End: 08-25-2017 Appointment Appointment [facility] Work Phone: Start: 07-17-2017 End: 07-17-2017 Colonoscopy flx dx w/collj spec when pfrmd Colonoscopy [facility] Work Phone: Start: 04-11-2017 End: 04-11-2017 RECRUITMENT OFFICER REAGAN [facility] Work Phone: Start: 04-11-2017 End: 04-11-2017 Follow Up Appt 1 year Follow Up Appt 1 year [facility] Work Phone: Start: 04-11-2017 End: 04-11-2017 Appointment Appointment [facility] Work Phone: Start: 04-11-2017 End: 04-11-2017 RECRUITMENT OFFICER RECRUITMENT OFFICER [facility] Work Phone: Start: 04-11-2017 End: 04-11-2017 Follow Up Appt 1 year Follow Up Appt 1 year [facility] Work Phone: Start: 10-04-2016 End: 10-04-2016 RECRUITMENT OFFICER RECRUITMENT OFFICER [facility] Work Phone: Start: 10-04-2016 End: 10-04-2016 Follow Up Appt 6 months Follow Up Appt 6 months [facility] Work Phone: Start: 10-04-2016 End: 10-04-2016 RECRUITMENT OFFICER RECRUITMENT OFFICER [facility] Work Phone: Start: 10-04-2016 End: 10-04-2016 Follow Up Appt 6 months Follow Up Appt 6 months [facility] Work Phone: Start: 03-30-2016 End: 09-28-2016 Follow Up Appt 6 months Follow Up Appt 6 months [facility] Work Phone: Start: 03-30-2016 End: 09-28-2016 MMM MMM [facility] Work Phone: Start: 03-30-2016 End: 09-28-2016 Follow Up Appt 6 months Follow Up Appt 6 months [facility] Work Phone: Start: 03-30-2016 End: 09-28-2016 MMM MMM [facility] Work Phone: Start: 03-24-2015 End: 03-24-2015 RECRUITMENT OFFICER RECRUITMENT OFFICER [facility] Work Phone: Start: 03-24-2015 End: 03-24-2015 Follow Up Appt 1 year Follow Up Appt 1 year [facility] Work Phone: Start: 03-24-2015 End: 03-24-2015 RECRUITMENT OFFICER RECRUITMENT OFFICER [facility] Work Phone: Start: 03-24-2015 End: 03-24-2015 Follow Up Appt 1 year Follow Up Appt 1 year [facility] Work Phone: Start: 03-25-2014 End: 03-28-2014 *BMP *BMP [facility] Work Phone: Start: 03-25-2014 End: 03-25-2014 RECRUITMENT OFFICER RECRUITMENT OFFICER [facility] Work Phone: Start: 03-25-2014 End: 03-25-2014 Echocardiography Echocardiogram (complete) [facility] Work Phone: Start: 03-25-2014 End: 03-25-2014 Follow Up Appt 1 year Follow Up Appt 1 year [facility] Work Phone: Start: 03-25-2014 End: 03-28-2014 *BMP *BMP [facility] Work Phone: Start: 03-25-2014 End: 03-25-2014 RECRUITMENT OFFICER RECRUITMENT OFFICER [facility] Work Phone: Start: 03-25-2014 End: 03-25-2014 Echocardiography Echocardiogram (complete) [facility] Work Phone: Start: 03-25-2014 End: 03-25-2014 Follow Up Appt 1 year Follow Up Appt 1 year [facility] Work Phone: Start: 03-26-2013 End: 03-24-2015 RECRUITMENT OFFICER RECRUITMENT OFFICER [facility] Work Phone: Start: 03-26-2013 End: 03-24-2015 Follow Up Appt 1 year Follow Up Appt 1 year [facility] Work Phone: Start: 03-26-2013 End: 03-24-2015 RECRUITMENT OFFICER RECRUITMENT OFFICER [facility] Work Phone: Start: 03-26-2013 End: 03-24-2015 Follow Up Appt 1 year Follow Up Appt 1 year [facility] Work Phone: Start: 03-23-2012 End: 03-23-2012 Follow Up Appt 1 year Follow Up Appt 1 year [facility] Work Phone: Start: 03-23-2012 End: 03-23-2012 Follow Up Appt 1 year Follow Up Appt 1 year [facility] Work Phone: US Carotid arteries [facility] US Heart [facility] Immunizations Immunization Date Immunization Notes Care Provider Fa cility 12-11-2020 Covid (Pfizer) Dr. Irene baird Work Phone: [facility] 11-20-2020 Covid (Pfizer) Dr. Irene baird Work Phone: [facility] 07-28-2019 influenza, injectabl e, quadrivalent, preservative free Dr. Irene Vergara Work Phone: [facility] 07-28-2019 influenza, seasonal, injectable Dr. Irene Vergara Work Phone: [facility] Payers Date Payer Category Payer Self-pay [id number] 2024 Medicare [id number] 2016 [id number] Unknown [id number] 2.16.8 [id number] Unknown [id number] 2.16.8 [id number] Unknown [id number] 2.16.8 [id number] Unknown [id number] 2.16.8 [id number] Unknown [id number] 2.16.8 [id number] Unknown [id number] 2.16.8 [id number] Unknown [id number] 2.16.8 [id number] Social History Date Type Detail Facility Start: 04-06-2022 End: 03-13-2023 Tobacco smoking status NHIS Unknown if ever smoked [facility] Start: 07-29-2019 None [facility] Start: 10-26-2020 Non-smoker [facility] Start: 1955 Sex Assigned At Female [facility] Start: 10-12-2024 Tobacco smoking stat us NHIS Never smoked tobacco (finding) [facility] Sex Female [facility] Progress note 06-12-2025 Note Date & Type Note Facility 06-12-2025 Progress note [facility] Evaluation note 04-24-2025 Note Date & Type Note Facility 04-24-2025 Evaluation note Diagnosis Onset Date Resolution Irritant contact dermatitis due to plant acute April 24, 2025 10:07am Right carotid bruit acute June 12, 2025 9:12am Essential (primary) hypertension chronic June 12, 2025 9:12am History of aortic valve replacement December, chronic June 12, 2025 9:12am History of coronary artery stent placement September 19, 2019 chronic June 12, 2025 9:12am Hyperlipemia chronic June 12, 2025 9:12am [facility] Work Phone: Evaluation note 12-10-2009 Note Date & Type Note Facility 12-10-2009 Evaluation note Diagnosis Onset Date Essential (primary) hypertension chronic Hyperlipemia chronic History of aortic valve replacement December, resolved History of coronary artery stent placement September 19, 2019 resolved ANDERS (obstructive sleep apnea) [facility] Work Phone: Evaluation note Note Date & Type Note Facility Evaluation note Diagnosis Onset Date ANDERS (obstructive sleep apnea) [facility] Work Phone: Evaluation note Note Date & Type Note Facility Evaluation note No assessment information availa ble [facility] Work Phone: Progress note Note Date & Type Note Facility Progress note Note Date/Time June 12, 2025 9:40am [facility] [address] [place] [address] OFFICE VISIT Date of Service: 06/12/25 MR#: [id number] Acct: [id number] Name: EBONI IRWIN GENE Rep #: [id number] : 1955 Provider: ASHLEY Cortes Age/Sex: 69/F Location: [facility] Status: Signed HPI HPI History of Present Illness Details: EBONI IRWIN, is a 69F who presents for a cardiovascular follow-up visit. She has a history of aortic valve disease/bicuspid aortic valve status post aortic valve replacement with a bioprosthetic valve in December 2009, hypertension, and hyperlipidemia. She presented to the hospital in July 2019 with chest discomfort she had abnormal troponins and underwent stress testing which demonstrated evidence of anterior ischemia. She underwent a cardiac catheterization which demonstrated a left dominant system, with a normal left main coronary artery, left anterior descending artery with 80% stenosis, first diagonal vessel with 70% stenosis, obtuse marginal branch with 50% stenosis, navdeep long right coronary artery with an 80% stenotic lesion. She also had collateral flow from right to left and preserved ejection fraction. She underwent angioplasty and stenting with a drug-eluting stent to the left anterior descending artery as well as the diagonal vessel. She had a staged procedure to her RCA in September 2019. She presented again in September after she underwent a stress test which demonstrated an abnormality at a high workload. She underwent a cardiac catheterization which demonstrated patent stents that had been previously placed. A repeat echocardiogram had demonstrated an ejection fraction of 60%, mild concentric hypertrophy no wall motion abnormalities and a peak mean gradient across the aortic valve of 41/24 mmHg. From a cardiac standpoint, the patient is doing well. She denies any palpitations, chest pain, pressure or heaviness. She denies SOB, Orthopnea, and PND. She does not have bleeding issues; no blood in urine, stool, or nosebleeds.She denies any decrease in energy level, myalgias, or claudication. She does nothave edema, or sudden weight gain. She denies lightheadedness, dizziness, syncopal or near syncopal episodes, and headaches. She states that she recently ran 1 mile at [facility]. Intake Vital Signs 05/16/24 09:12 06/12/25 07:51 Height 5 ft 4 in 5 ft 4 in Weight: 131 lb BMI 22.4 BP 138/88 H Blood Pressure Location Lt brachial Position Sitting Respiration 18 Pulse 56 L Pulse Source Monitor Pulse Oximetry (%) 100 Intake Visit Reasons: 1 Y FU/MOVED FROM [facility] Foot Tender Required: No Is patient in pain?: No Allergies lisinopril Adverse Reaction (Mild, Verified 06/12/25 09:30) Dry Cough Medications ?Medication ?Instructions ?Recorded ?Confirmed ?Type aspirin 81 mg chewable tablet 81 mg PO MOWEFR HEART 06/12/25 History clopidogrel 75 mg tablet 75 mg PO DAILY #90 TABLETS 1 10/29/23 06/12/25 Rx atorvastatin 40 mg tablet 40 mg PO QHS #90 tabs 06/12/25 Rx candesartan 16 mg tablet 16 mg PO DAILY #90 TABLETS 0 03/12/25 06/12/25 Rx amoxicillin 500 mg tablet 2,000 mg (4 x 500 mg) PO ONC E PRN 04/28/25 06/12/25 Rx dental #4 tabs metoprolol succinate 50 mg See Rx Instructions .Route 06/11/25 06/12/25 Rx tablet,extended release 24 hr .COMPLEX #90 tabs alprazolam 0.25 mg tablet 0.25 mg PO QHS PRN 06/12/25 06/12/25 History buspirone 5 mg tablet 5 mg PO BID PRN 06/12/2511/05 History Ejection fraction %: 70 Have you fallen in the past year?: No PFSH Medical History COVID-19 (~06/2022) ANDERS (obstructive sleep apnea) Hyperlipemia Essential (primary) hypertension Bicuspid aortic valve Atherosclerosis of coronary artery of council heart without angina pectoris Non-rheumatic aortic stenosis Surgical History History of coronary artery stent placement (09/19/19) Lung nodule History of History of left heart catheterization (10/26/20) History of aortic valve replacement (12/2009) Family History Father Myocardial infarction Heart disease Brother Heart disease Social History Smoking Status: Never smoker alcohol intake: current alcohol intake frequency: a few times a month Alcohol type: wine substance use type: does not use caffeine: Yes Type: coffee Number of servings: 1 ROS Const Const: Negative for fatigue, weakness, headache(s) or frequent falls Eyes Eyes: Negative for blurry vision ENT ENT: Negative for headache(s), dizziness or Nosebleed/epistaxis Cardio Chest Pain: No Palpitations: No Edema: None Muscle aches with walking: None Resp Respiratory: Negative for SOB with activity, SOB at rest or SOB orthopnea\SOB lying down GI GI: Negative nausea, vomiting, heartburn, bright, red blood in stools or black,tarry stools : Negative for hematuria Neuro Neuro: Negative for dizziness, lightheadedness, near syncope, syncope, frequent falls, headache(s), weakness or blurry vision Endo Endo: Negative for fatigue Cardiology Exam Const Appearance: cooperative, healthy appearing, no acute distress, well developed and well groomed Nutritional Appearance: average body habitus and well nourished Orientation: alert, awake and oriented x3 Head Head: normal to inspection, normocephalic and atraumatic Ears: hearing grossly normal bilaterally and external ears normal Nose: external nose normal and nares normal Face and Sinus: face symmetric Eyes General: appearance normal, both eyes and all related structures Eyelids: eyelids normal Conjunctivae: conjunctivae normal Pupils: PERRL, normal by confrontation and accommodation normal EOM: EOM intact bilaterally Neck Neck: normal visual inspection, trachea midline and no JVD JVD: +5 Carotids: normal carotid upstroke, bounding pulses and bruit Right Chest Chest inspection: normal inspection of the chest, symmetric chest movement and normal respiratory effort Auscultation: Bilateral: Clear to Auscultation Cardio Palpation: normal PMI Rate: regular rate Rhythm: regular rhythm Heart sounds: S1 normal, S2 normal, murmur and normal, physiologic split S2; Negative rub or gallop Murmur: Grade 2/6, mid systolic and radiates to carotids GI GI: normal to inspection and soft Neuro General: patient alert, patient awake, patient oriented x3, gait normal, moves all extremities and no focal sensory deficit Skin Skin: no rashes or lesions noted Extremities Pulses: Normal: Right Posterior Tibial Pulse, Left Posterior Tibial Pulse, RightRadial Pulse and Left Radial Pulse Lower Extremity Edema: None: Bilateral Musculoskel Musculoskeletal: No joint tenderness Psych Psychological: normal affect Supplemental Info Supplemental Information Echocardiogram 07/12/2024: Interpretation Summary Normal LV size. Left ventricular systolic function is normal. The left ventricular ejection fraction is 70 %. Stage 1 diastolic dysfunction. Mean aortic valve gradient 22 mmHg. Bioprosthetic aortic valve functioning normally. ECHOCARDIOGRAM 10/12/2020 Interpretation Summary Normal LV size. Mild concentric left ventricular hypertrophy. Left ventricular systolic function is normal. The estimated ejection fraction is 60 %. Normal diastology for age. Stable appearing bioprosthetic aortic valve apparatus. Mean aortic valve gradient 24 mmHg. Compared to the previous echocardiogram the aortic valve area is only mildly worsened. Stress test from 07/12/2024: Conclusion: Normal exercise myocardial perfusion stress test at a high workload. EKG changes noted. The EKG changes were also present during exercise during thestress test in 2020. Preserved ejection fraction. CARDIAC CATHETERIZATION 10/26/2020 CONCLUSIONS Previously placed stent in the LAD, diagonal, and proximal right coronary arteryare noted to be patent. The prosthetic aortic valve appears to be stable. CORONARY ANGIOGRAPHY DOMINANCE: Left Dominant LEFT HEART ASSESSMENT Left Ventricular Ejection Fraction: by Echo 60 % Normal LV wall motion Normal Left Ventricular systolic function LEFT MAIN: Angiographically normal LEFT ANTERIOR DESCENDING ARTERY: MID LAD: Previously placed stent is patent DIAGONAL 1: Proximal - Previously placed stent is patent DIAGONAL 2: Ostial - 60 % Stenosis CIRCUMFLEX ARTERY: No significant disease noted RIGHT CORONARY ARTERY: PROX RCA: Previously placed stent is patent Cardiac Catheterization 07/29/19 CONCLUSIONS Severe disease involving LAD, Diagonal and moderate Lcx and High grade non dominant RCA Cardiac Intervention 09/19/19 CONCLUSIONS Successful PTCA/JOYA to pRCA Labs: LDL Cholesterol, (0-130) 64 mg/dL HDL Cholesterol, (40-) 58 mg/dL Cholesterol, (200) 136 mg/dL Triglycerides, (-199) 68 mg/dL Diagnostics: Electrocardiogram Echocardiogram Stress Test Stress Test Nuclear Medicine Stress Echocardiogram Cardiac Catheterization Cardiac Intervention Chest X-Ray Carotid Duplex Past Visits: Cardiology Visit Today Assessment and Plan Assessment and Plan (1) History of coronary artery stent placement: Status: Chronic Comment: PCI-JOYA-Mid LAD w/ 2.5 x 24 mm Synergy and JOYA-D1 w/ 2.5 x 12 mm Synergy Stent 07/29/19; [id number] RCA w/ 2.5 x Synergy Stent 09/19/2019 Plan: Patient has a history of coronary artery disease with stent placement to her midLAD, and proximal RCA in 2019. Her most recent echocardiogram from July 2024 was negative for ischemia at a high workload. This was reviewed with patient. She appears stable at this time, denies any recent symptoms or events. She will continue aspirin 81 mg 3 times a week, and atorvastatin 40 mg daily. She will continue with aggressive risk factor and lifestyle modifications, as well as monitoring for any concerning symptoms. (2) History of aortic valve replacement: Status: Chronic Comment: 21 mm Omero Gilmore bioprosthetic aortic valve replacement in December 2009 Plan: Patient is status post aortic valve replacement in December 2009. Her echocardiogram on 07/12/2024 demonstrated ejection fraction of 70%, and a mean aortic valve gradient of 22 mmHg, and bioprosthetic aortic valve is functioning normally. Would like to obtain an echocardiogram to reassess this. Depending on results, further recommendations will be made. (3) Essential (primary) hypertension: Status: Chronic Plan: Patient has a history of hypertension. Her blood pressure is well-controlled atthis time?138/88. She will continue with her current medical therapy, along with monitoring her blood pressures at home. She will notify our office of any persistently elevated or low blood pressure readings. (4) Hyperlipemia: Status: Chronic Qualifiers: Hyperlipidemia type: pure hypercholesterolemia Qualified Code(s): E78.00 - Pure hypercholesterolemia, unspecified Plan: Patient has a history of hyperlipidemia. Will obtain a fasting lipid and liver profile to reassess this. Depending on results, further recommendations will bemade. At this time, she will continue atorvastatin 40 mg daily, along with aggressive risk factor and lifestyle modifications. (5) Right carotid bruit: Status: Acute Plan: A carotid bruit was heard on her right side. Will obtain a carotid duplex ultrasound to assess this. Depending on results, further recommendations will be made. Orders: Orders Echo Complete 1 Month Z95.2 - Presence of prosthetic heart valve Carotid Duplex Ultrasound 1 Month R09.89 - Other specified symptoms and signs involving the circulatory and respiratory systems Plan Details Additional Comments: Patient will follow-up in 12 months, or sooner if needed. Thank you for allowing me to participate in the care of your patient. Please donot hesitate to call if any issues arise. This note was generated using a voice recognition system and there may be incorrect words, spelling, or punctuation that were not noted when reviewing theoffice note prior to saving. Portions of this documentation were copied and pasted from previous office visitnotes to provide cohesive continuity of the history. The note has been reviewed,edited, and updated, as necessary. 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) Coding Level of Care Code Off vis,est,level 4 Diagnoses History of coronary artery stent placement Z95.5 History of aortic valve replacement Z95.2 Essential (primary) hypertension I10 Pure hypercholesterolemia E78.00 Hyperlipidemia type: pure hypercholesterolemia Right carotid bruit R09.89 Coding Level of Care Code Off vis,est,level 4 Diagnoses History of coronary artery stent placement Z95.5 History of aortic valve replacement Z95.2 Essential (primary) hypertension I10 Pure hypercholesterolemia E78.00 Hyperlipidemia type: pure hypercholesterolemia Right carotid bruit R09.89 Clinical Quality Measures Falls Risk Screening/Assistive Devices Have you fallen in the past year?: No Cardiac Ejection fraction %: 70 06/12/25 0957 <Electronically signed by Nikki RAMIREZ> Date _ Nikki RAMIREZ Cosigner Signature: Date (if applicable) CC: ~ [facility] Work Phone: Reason for referral (narrative) Note Date & Type Note Facility Reason for referral (narrative) No reason for referral information available [facility] Work Phone: Chief Complaint and Reason for Visit Chief Complaint 1 Y FU SCREENING Reason for Visit ANDERS (obstructive sle ep apnea) Chief Complaint 1 Y FU 1 Y FU Reason for Visit Essential (primary) hypertension Hyperlipemia History of aortic valve replacement History of coronary artery stent placement ANDERS (obstructive sleep apnea) Chief Complaint 1 Y FU 1 Y FU Encounter for other screening for malignant neopla Reason for Visit Essential (primary) hypertension Hyperlipemia History of aortic valve replacement History of coronary artery stent placement ANDERS (obstructive sleep apnea) Chief Complaint Admit Date CONCERN FOR SHINGLES April 24, 2025 1 0:07am Chief Complaint Admit Date CONCERN FOR SHINGLES April 24, 2025 1 0:07am 1 Y FU/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 June 12, 2025 9:12am E ORDERS June 12, 2025 9: 45am Reason for Visit Admit Date Irritant contact dermatitis due to plant April 24, 2025 10:07am Right carotid bruit June 12, 2025 9: 12am Essential (primary) hypertension June 12, 2025 9:12am History of aortic valve replacement Octo 2024 9:12am History of coronary artery stent placeme nt June 12, 2025 9:12am Hyperlipemia June 12, 2025 9: 12am Family History No Family History Records Found Relationship Condition Age at Onset Recorded Date/T alexis father Myocardial infarction Unknown Cardiac disease Unknown brother Cardiac disease Unknown Advance Directives No Advanced Directives Records Found Advance Directive Response Recorded Date/ Time Advance Directives Yes October 9:11am Living Will Yes October 26 9:11am Power of Tenant Selector Yes October 26, 2020 9:11am Advance Directive Response Recorded Date/ Time Advance Directives Yes October 12, 2024 9:36am Advance Directive Response Recorded Date/ Time Living Will Yes October 26 9:11am Do you have a Healthcare Power of Tenant Selector? Yes October 26, 2020 9:11am Advance Directives Yes October 12, 2024 9:36am Summary Purpose Additional Source Comments Goals (unrecognized section and content) Goals may be documented in a n alternate sectionGoals may be documented in an alternate sectionGoals may be documented in an alternate sectionGoals may be documented in an alternate sectionGoals may be documented in an alternate section Care Teams (unrecognized sec tion and content) Team Status: Active Member Role Status Dates Dr. Irene Vergara , DO Family Provider Active Dr. Irene Vergara DO Primary Care Provider Active Team Status: Inactive Member Role Status Dates Dr. Irene Vergara DO Primary Care Provider, Referring P rovider Active Dr. Jas Jo MD Attending Provider Active Team Status: Inactive Member Role Status Dates Dr. Irene Vergara DO Primary Care Provider, Referring P rovider Active Dr. Bryon Jackson MD Attending Provider Active Team Status: Inactive Member Role Status Dates Dr. Irene Vergara DO Primary Care Provide r, Attending Provider, Referring Provider Active Team Status: Active Member Role/Relationship Status Dates Dr. Irene Vergara DO Family Provider Active Dr. Irene Vergara DO Primary Care Provider Active Team Status: Inactive Member Role/Relationship Status Dates Dr. Irene Vergara DO Primary Care Provider Active Start: April 24, 2025 End: April 24, 2025 Dr. Irene Vergara DO Referring Provider Active St art: April 24, 2025 End: April 24, 2025 SILVA Cruz Attending Provider Active Sta rt: April 24, 2025 End: April 24, 2025 Team Status: Active Member Role/Relationship Status Dates Dr. Irene Vergara DO Primary care physician Active Team Status: Inactive Member Role/Relationship Status Dates Dr. Irene Vergara DO Primary care physician Active Start: April 24, 2025 End: April 24, 2025 Dr. Irene Vergara DO Referring Provider Active St art: April 24, 2025 End: April 24, 2025 SILVA Cruz Attending physician Active St art: April 24, 2025 End: April 24, 2025 Team Status: Inactive Member Role/Relationship Status Dates Dr. Irene Vergara DO Primary care physician Active Start: June 12, 2025 End: June 12, 2025 Dr. Irene Vergara DO Referring Provider Active St art: June 12, 2025 End: June 12, 2025 Nikki Cortes NP, ESTIMATE CLERK-C Attending physician Active Start: June 12, 2025 End: June 12, 2025 Team Status: Active Member Role/Relationship Status Dates Dr. Irene Vergara DO Primary care physician Active Start: June 12, 2025 Nikki Cortes ESTIMATE CLERK, ESTIMATE CLERK-C Attending physician Active Start: June 12, 2025 Nikki Cortes ESTIMATE CLERK, ESTIMATE CLERK-C Referring Provider Active Start: June 12, 2025 INFORMATION SOURCE (unrecogn ized section and content) DATE CREATED AUTHOR 07/23/2025 [facility] FOR RECORDS PERTAINING TO PATIENTS WHO ARE OR HAVE BEEN ENROLLED IN A CHEMICAL DEPENDENCY/SUBSTANCEABUSE PROGRAM, SOME INFORMATION MAY BE OMITTED. This clinical summary was aggregated from multiple sources. Caution should be exercised in using it in the provision of clinical care. This summary normalizes information from multiple sources, and as a consequence, information in this document may materially change the coding, format and clinical context of patient data. In addition, data may be omitted in some cases. CLINICAL DECISIONS SHOULD BE BASED ON THE PRIMARY CLINICAL RECORDS. [facility] [employer] [facility] provides no warranty or guarantee of the accuracy or completeness of information in this document.
[2025-08-13 17:11] LABS: Hematocrit 41.5 % (37-47); Hemoglobin 13.9 g/dL (12.0-15.0); Immature Granulocytes Count 0.010 X10^3/uL (0.0-0.0); Mean Corp Hgb Conc 33.5 g/dL (32-36); Mean Corpuscular Volume 87.0 fL (81-99); Mean Platelet Vol. 10.1 fl (6.2-12.0); NRBC Flagged by Analyzer 0 % (0-5); Platelet Count 219 K/mm3 (150-450); RBC Distribution Width CV 12.0 % (11.6-14.6); RBC Distribution Width SD 38.6 fl (35.1-43.9); Red Blood Count 4.77 M/mm3 (4.2-5.4); White Blood Count 6.5 K/mm3 (4.4-11.0)
[2025-08-13 17:58] LABS: AST(SGOT) 22 U/L (<=31); Alanine Aminotransfer ALT/SGPT 17 U/L (<=34); Albumin, Serum 4.3 g/dL (3.4-4.8); Alkaline Phosphatase 58 U/L (35-104); Anion Gap 12 (5-15); BUN 18 mg/dL (4-19); BUN/Creat Ratio 19.7 RATIO (10-20); Calcium,Total 9.8 mg/dL (7.6-11.0); Carbon Dioxide 22.2 mmol/L (21.0-32.0); Chloride 106 mmol/L (98-108); Globulin 2.4 g/dL (2.2-4.2); Glucose 113 mg/dL (70-99); Potassium 4.1 mmol/L (3.3-5.1); Vitamin B12 342 pg/mL (180-914); Vitamin D,25 Hydroxy 46.8 ng/mL (30-100)
== END 2025-08-13 23:59 | disposition home or self-care (01) ==
PROVIDERS: PCP Family Medicine; Referring Provider Family Medicine; Visit Provider Family Medicine
DX: Z12.31 Encounter for screening mammogram for malignant neoplasm of breast (principal); Z51.81 Encounter for therapeutic drug level monitoring; E55.9 Vitamin D deficiency, unspecified; E53.8 Deficiency of other specified B group vitamins; R94.39 Abnormal result of other cardiovascular function study
CPT/HCPCS: 71275; 77063; 77067; 80053; 82306; 82607; 85025; Q9967